=== PATIENT | female | born 1975 | race Caucasian/White ===

== ENCOUNTER 2024-01-24 13:59 | Inpatient (IN) ==
[2024-01-24 16:23] LABS: Basophils # (auto) 0.06 K/uL (0.00-0.20); Basophils % (auto) 0.6 %; Hematocrit (blood only) 40.9 % (37.0-47.0); Hemoglobin 13.6 g/dl (12.0-16.0); Immature Granulocytes # (auto) 0.04 K/uL (0.01-0.20); Immature Granulocytes % (auto) 0.4 %; Lymphocytes # (auto) 2.77 K/uL (1.20-3.40); Lymphocytes % (auto) 26.9 %; Mean Corpuscular Hemoglobin 29.7 pg (25.0-34.0); Mean Corpuscular Hgb Conc 33.3 g/dL (32.0-36.0); Mean Corpuscular Volume 89.3 fL (80.0-100.0); Mean Platelet Volume 10.3 fL (9.4-12.4); Monocytes # (auto) 0.71 K/uL (0.11-0.59); Monocytes % (auto) 6.9 %; Neutrophils # (auto) 6.62 K/uL (1.40-6.50); Neutrophils % (auto) 64.2 %; Platelet Count 328 K/uL (130-400); RDW Coefficient of Variation 12.9 % (11.5-14.5); RDW Standard Deviation 41.9 fL (36.4-46.3); Red Blood Count 4.58 M/uL (4.20-5.40)
[2024-01-24 16:39] LABS: Albumin Globulin Ratio 1.6 (0.9-2); Albumin Level 4.6 gm/dl (3.4-5.0); BUN Creatinine Ratio 16.9 (10-20); Bilirubin,Total 0.4 mg/dl (0.2-1.0); Calcium 9.4 mg/dl (8.6-10.3); Creatinine Clr Calc Pharmacy 58.9 ml/min; Est GFR (Non-African American) 82.8 ml/min; Globulin 2.9 gm/dl (2.5-4.0); Potassium 3.9 mmol/L (3.5-5.1); Total Protein 7.5 gm/dl (6.0-8.3)
[2024-01-24 16:44] LABS: Troponin I High Sensitivity 6.7 pg/ml (0-14)
[2024-01-24 16:53] LABS: INR 0.9 (0.9-1.1); Partial Thromboplastin Ratio 0.9; Partial Thromboplastin Time 24 Seconds (21-31); Prothrombin Time 10.1 Seconds (9.0-12.0)
--- NOTE | 2024-01-24 16:58 | Emergency Department Note ---
History of Present Illness General Chief complaint: Syncope Stated complaint: SYNCOPE Time Seen by Provider: 01/24/24 16:57 History of Present Illness NAME: TRENTON MEADE AGE: 48 SEX: F : 1975 ARRIVES VIA: Walk-In INFORMANT: Patient ED PROVIDER(S): FELICIANO Vital, Gabriel Quesada DO The patient is a pleasant 48-year-old female who arrives to the emergency department with her significant other for evaluation of multiple episodes of syncope. She reports since Sunday she has syncopized nearly 20 times. The event start with a central chest pain, and a sensation of hot and cold before she has loss of consciousness. The patient reports she is out for several moments until she comes to. She reports the chest pain is resolved upon awaking. She denies a history of previous episodes, cardiac history, or hypoglycemia. She does report a history of focal seizures, however her presentation of seizures does not resemble this. She denies current chest pain, abdominal pain, nausea, vomiting, head pain, neurological deficits, head strike, or falling. She reports the episodes have occurred while she has been lying down, standing, working, and driving. Home Medications Medication Instructions Recorded Confirmed Type aspirin 81 mg tablet,delayed 81 mg PO DAILY 01/24/24 01/24/24 History release duloxetine 20 mg capsule,delayed 20 mg PO DAILY 01/24/24 01/24/24 History release ergocalciferol (vitamin D2) 1,250 1,250 mcg PO WK 01/24/24 01/24/24 History mcg (50,000 unit) capsule (Vitamin D2) multivitamin with minerals-folic 1 tab PO DAILY 01/24/24 01/24/24 History acid 200 mcg chewable tablet (Multivitamin Gummies) primidone 50 mg tablet 25 mg PO DAILY 01/24/24 01/24/24 History Allergies Allergy/AdvReac Type Severity Reaction Status Date / Time mushroom Allergy Severe THROAT Verified 01/24/24 17:42 SWELLS/HIVES doxepin [From [place]] Allergy Intermediate Hives Verified 01/24/24 17:42 Past Med/Surg History Problem List (Updated 01/24/24 @ 21:33 by FELICIANO Nguyen) Syncope (Acute) Chest pain (Acute) Social History Smoking Status: Former smoker Feels Safe at Home: Yes Physical Exam Vital Signs Vital Signs - 24 hr 01/24/24 14:23 01/24/24 16:47 01/24/24 16:47 Temperature 36.3 C L 36.7 C Temperature Source Temporal Artery Scan Oral Pulse Rate - Lying Pulse Rate - Sitting Pulse Rate - Standing Pulse Rate 95 H Pulse Rate [Right Finger] 74 Pulse Rhythm Pulse Rhythm [Right Finger] Regular Pulse Strength [Right Finger] Normal Respiratory Rate 16 20 Respiratory Effort / Characteristics Non-Labored Non-Labored Spontaneous Respiratory Depth Normal Normal Respiratory Pattern Regular Blood Pressure - Lying Blood Pressure - Sitting Blood Pressure- Standing Blood Pressure 131/94 Blood Pressure [Left Arm] 155/88 H Blood Pressure Mean 106 Blood Pressure Mean [Left Arm] 110 Blood Pressure Position [Left Arm] Semi-fowlers Pulse Oximetry 100 96 98 Oxygen Delivery Method Room Air Room Air Room Air Sepsis Recent Fever Within 48 Hours No Sepsis New/Unexplained Change in Mental Status No Sepsis Action Taken by Nursing No Action Required 01/24/24 16:47 01/24/24 16:47 01/24/24 17:33 Temperature Temperature Source Pulse Rate - Lying 83 Pulse Rate - Sitting 88 Pulse Rate - Standing 95 H Pulse Rate 74 75 Pulse Rate [Right Finger] Pulse Rhythm Regular Pulse Rhythm [Right Finger] Pulse Strength [Right Finger] Respiratory Rate 20 Respiratory Effort / Characteristics Respiratory Depth Respiratory Pattern Blood Pressure - Lying 154/88 H Blood Pressure - Sitting 161/96 H Blood Pressure- Standing 174/108 H Blood Pressure Blood Pressure [Left Arm] Blood Pressure Mean Blood Pressure Mean [Left Arm] Blood Pressure Position [Left Arm] Pulse Oximetry 98 Oxygen Delivery Method Room Air Sepsis Recent Fever Within 48 Hours Sepsis New/Unexplained Change in Mental Status Sepsis Action Taken by Nursing 01/24/24 18:32 01/24/24 20:34 01/24/24 20:35 Temperature 36.7 C Temperature Source Oral Pulse Rate - Lying 88 Pulse Rate - Sitting 95 H Pulse Rate - Standing 91 H Pulse Rate Pulse Rate [Right Finger] 88 88 Pulse Rhythm Pulse Rhythm [Right Finger] Regular Regular Pulse Strength [Right Finger] Normal Normal Respiratory Rate 20 14 Respiratory Effort / Characteristics Non-Labored Spontaneous Non-Labored Respiratory Depth Normal Normal Respiratory Pattern Regular Regular Blood Pressure - Lying 160/92 H Blood Pressure - Sitting 160/93 H Blood Pressure- Standing 169/100 H Blood Pressure Blood Pressure [Left Arm] 153/92 H 160/92 H Blood Pressure Mean Blood Pressure Mean [Left Arm] 112 114 Blood Pressure Position [Left Arm] Semi-fowlers Lying Pulse Oximetry 98 100 Oxygen Delivery Method Room Air Room Air Sepsis Recent Fever Within 48 Hours Sepsis New/Unexplained Change in Mental Status Sepsis Action Taken by Nursing VITALS: Vitals are noted on the nurse's note and reviewed by myself. Vital signs stable. GENERAL: 48-year-old female, in no acute distress, nondiaphoretic, well- developed well-nourished. SKIN: The skin was without rashes, erythema, edema, or bruising. HEAD: Normocephalic atraumatic. NECK: Supple without nuchal rigidity. No lymphadenopathy. No thyromegaly. Cervical spine is nontender. No JVD. HEART: Regular rate and rhythm without murmurs gallops or rubs. LUNGS: Clear to auscultation bilaterally without wheezes, rales or rhonchi. No retractions or accessory muscle use. ABDOMEN: Positive bowel sounds x 4. Soft, nontender, without masses or organomegaly. Holder sign negative. No guarding or rebound tenderness. MUSCULOSKELETAL: No muscle atrophy, erythema, or edema noted. Full range of motion without joint tenderness in all extremities. No tenderness to palpation. Normal gait. Strength 5/5 throughout. NEURO: Patient was alert and oriented to person place and time. No focal neurological deficits. Course Administered Medications Discontinued Medications Sodium Chloride (Nss) 1,000 mls @ 999 mls/hr IV .Q1H1M [facility] Stop: 01/24/24 18:45 Last Infusion: 01/24/24 19:14 Dose: Infused Documented By: Admin: 01/24/24 17:33 Dose: 999 mls/hr Documented By: WOODY Ioversol (Optiray 320 125ml) 84 ml IV ONCE ONE Stop: 01/24/24 18:13 Last Admin: 01/24/24 18:12 Dose: 84 ml Documented By: DEN Ketorolac Tromethamine (Ketorolac Tromethamine 60 Mg/2 Ml Vial) 30 mg IM NOW STA Stop: 01/24/24 16:59 Last Admin: 01/24/24 17:14 Dose: 30 mg Documented By: CAW Medical Decision Making Differential Diagnosis Cardiac ischemia, aortic dissection, pulmonary embolism, pneumothorax, pneumonia, pericarditis, myocarditis, esophageal rupture, GERD, cholecystitis, pancreatitis, musculoskeletal, as well as other pathologies. Medical Records Attestation: I reviewed the patient's medical records. Home Medications Current Medication List: was personally reviewed by me Laboratory Data Attestation: I reviewed the patient's lab results. No leukocytosis, stable hemoglobin and hematocrit, no electrolyte abnormalities, urinalysis negative for infection, troponin 6.7. 01/24/24 15:54 01/24/24 15:54 Lab Results 01/24/24 01/24/24 01/24/24 Range/Units 15:54 18:45 19:43 WBC 10.30 (4.8-10.8) K/ul RBC 4.58 (4.20-5.40) M/uL Hgb 13.6 (12.0-16.0) g/dl Hct 40.9 (37.0-47.0) % MCV 89.3 (80.0-100.0) fL MCH 29.7 (25.0-34.0) pg MCHC 33.3 (32.0-36.0) g/dL RDW Std Deviation 41.9 (36.4-46.3) fL RDW Coeff of Deric 12.9 (11.5-14.5) % Plt Count 328 (130-400) K/uL MPV 10.3 (9.4-12.4) fL Immature Gran % (Auto) 0.4 % Neut % (Auto) 64.2 % Lymph % (Auto) 26.9 % [place] % (Auto) 6.9 % Eos % (Auto) 1.0 % Baso % (Auto) 0.6 % Neut # (Auto) 6.62 H (1.40-6.50) K/uL Lymph # (Auto) 2.77 (1.20-3.40) K/uL [place] # (Auto) 0.71 H (0.11-0.59) K/uL Eos # (Auto) 0.10 (0.00-0.50) K/uL Baso # (Auto) 0.06 (0.00-0.20) K/uL Immature Gran # (Auto) 0.04 (0.01-0.20) K/uL PT 10.1 (9.0-12.0) Seconds INR 0.9 (0.9-1.1) APTT 24 (21-31) Seconds PTT Ratio 0.9 D-Dimer 380 (0-500) ug/L FEU Sodium 139 (136-145) mmol/L Potassium 3.9 (3.5-5.1) mmol/L Chloride 106 (98-107) mmol/L Carbon Dioxide 29 (21-32) mmol/L Anion Gap 4 (3-11) BUN 14 (6-23) mg/dl Creatinine 0.83 (0.6-1.2) mg/dl Est Cr Clr Drug Dosing 58.9 ml/min Est GFR ( Amer) 96.0 ml/min Est GFR (Non-Af Amer) 82.8 ml/min BUN/Creatinine Ratio 16.9 (10-20) Glucose 68 L (70-99(Fasting)) mg/dl Calcium 9.4 (8.6-10.3) mg/dl Magnesium 1.8 (1.7-2.4) mg/dl Total Bilirubin 0.4 (0.2-1.0) mg/dl AST 21 (13-39) U/L ALT 41 (7-52) U/L Alkaline Phosphatase 65 (34-104) U/L Troponin I High Sens 6.7 5.4 (0-14) pg/ml Total Protein 7.5 (6.0-8.3) gm/dl Albumin 4.6 (3.4-5.0) gm/dl Globulin 2.9 (2.5-4.0) gm/dl Albumin/Globulin Ratio 1.6 (0.9-2) Urine Color Yellow Urine Appearance Clear (Clear) Urine pH 7.0 (4.5-7.5) Ur Specific [place] 1.012 (1.000-1.030) Urine Protein Negative (Negative) Urine Glucose (UA) Negative (Negative) Urine Ketones Negative (Negative) Urine Blood Negative (Negative) Urine Nitrite Negative (Negative) Urine Bilirubin Negative (Negative) Urine Urobilinogen Negative (Negative) Ur Leukocyte Esterase Negative (Negative) Imaging Data Attestation: I personally reviewed and interpreted this imaging study as follows: My Impression: Initial x-ray interpretation per myself shows no acute cardiopulmonary process. Will await formal radiology report. Radiologist's Impression: Chest X-Ray 01/24/24 14:26 XR chest 1V portable CLINICAL HISTORY: Chest pain, nonspecific TECHNIQUE: Single frontal radiograph of the chest was obtained. Comparison: None available at the time of this dictation. FINDINGS: No lines and tubes are seen. The cardiomediastinal silhouette is normal. The lungs are clear. No evidence of pleural effusion or pneumothorax. IMPRESSION: No acute chest disease. ACT 112: Negative or not required by law. Electronically signed by: Raghu Murray M.D. 01/24/2024 5:38 PM Chest CTA 01/24/24 17:24 CT angio chest PE protocol CLINICAL HISTORY: PE TECHNIQUE: Multidetector row helical CT of the chest was performed with angiographic protocol. Coronal and sagittal reformations were obtained. Coronal and sagittal MIPS were obtained from the axial data set and were submitted for review. Automated dose lowering techniques and/or adjustment according to patient size were utilized for this exam. CT DOSE: 327.6 mGy.cm Comparison: Comparison is made to chest radiograph 01/24/2024 FINDINGS: Lungs and pleura: Diffuse centrilobular emphysema is seen most prominent in the upper lobes. There is a 6 mm nodule in the right lower lobe (series 4 image 97) and a 3 mm nodule in the right middle lobe (image 64). Heart and pericardium: Heart size is normal. No pericardial effusion. Vessels: No evidence of pulmonary embolism. Mediastinum and janet: Unremarkable. Chest wall and lower neck: Unremarkable. Abdomen: Unremarkable. Bones: Unremarkable. IMPRESSION: 1. No acute abnormality and in particular no evidence of pulmonary embolus. 2. Emphysema is seen. 3. Pulmonary nodules as above. According to Fleischner criteria, CT chest should be performed at 6-12 months. In high-risk patients, a 18-24 month follow- up is recommended, in low-risk patients, this 18-24 month follow-up CT is optional. ACT 112: Negative or not required by law. Electronically signed by: Raghu Murray M.D. 01/24/2024 6:44 PM ECG Data Attestation: I personally reviewed and interpreted this ECG as follows: Indication: + chest pain and + syncope Rate (beats per minute): 78 Rhythm: + normal sinus ECG [place]: + Normal ECG ST segments: + Normal ST segments Comparison ECG Date: no prior available Blood Pressure Blood Pressure Findings: Normal blood pressure MDM Narrative The patient is a pleasant 48-year-old female who arrives to the emergency department for the above-stated complaint. Initial workup was performed in triage including a saline lock, CBC, CMP, troponin, EKG. CBC, CMP, troponin were reassuring. EKG was unremarkable. Upon initial assessment the patient describes multiple episodes of syncope which are very concerning. I do believe it is appropriate to rule out pulmonary embolus as the cause therefore CT imaging of the chest was indicated. CT imaging shows no pulmonary embolus, no acute findings, and 2 incidental pulmonary nodules. Due to the patient's safety risk, and need for formal cardiology workup, admission to the hospital is indicated. I spoke with case management regarding patient admission who facilitated contact with the [facility] hospitalist service. The patient was accepted by Dr. Strickland from the [facility] hospitalist group. He will assume care of the patient at this time. Please refer to Dr. Strickland's documentation for further patient care. Continuous home health care worker: Order was placed for continuous home health care worker. Patient was placed on the home health care worker. Patient was noted to be in normal sinus rhythm at an initial rate of 74 bpm. Impression & Plan Chest pain, Syncope Discharge Plan Visit Data Chief Complaint: Syncope Stated Complaint: SYNCOPE ED Provider: Gabriel Quesada ED Midlevel Provider: Vandana Sharp Discharge Problem: Chest pain, Syncope Forms Stand Alone Forms: My [facility] Prescriptions Prescriptions: No Action primidone 50 mg tablet 25 mg PO DAILY aspirin 81 mg Tablet,Delayed Release (Dr/Ec) 81 mg PO DAILY ergocalciferol (vitamin D2) [Vitamin D2] 1,250 mcg (50,000 unit) Capsule 1,250 mcg PO WK Rx Instructions: [facility] duloxetine 20 mg Capsule,Delayed Release(Dr/Ec) 20 mg PO DAILY multivit with min-folic acid [Multivitamin Gummies] 200 mcg Tablet,Chewable 1 tab PO DAILY Referrals Referrals: PCP,NO [Physician] - Discharge Problem: Chest pain Qualifiers: Chest pain type: unspecified Qualified Code(s): R07.9 - Chest pain, unspecified Syncope Qualifiers: Syncope type: unspecified Qualified Code(s): R55 - Syncope and collapse
[2024-01-24] MEDS: KETOROLAC TROMETHAMINE 60 MG/2 ML VIAL IM STA (17:14)
[2024-01-24] MEDS: SODIUM CHLORIDE 0.9% 1,000 ML IV SCH (17:33)
--- NOTE | 2024-01-24 17:39 | XRay Report ---
XR chest 1V portable CLINICAL HISTORY: Chest pain, nonspecific TECHNIQUE: Single frontal radiograph of the chest was obtained. Comparison: None available at the time of this dictation. FINDINGS: No lines and tubes are seen. The cardiomediastinal silhouette is normal. The lungs are clear. No evid ence of pleural effusion or pneumothorax. IMPRESSION: No acute chest disease. ACT 112: Negative or not required by law. Electronically signed by: Raghu Murray M.D. 01/24/2024 5:38 PM
[2024-01-24] MEDS: OPTIRAY 320 125ml IV ONE (18:12)
--- NOTE | 2024-01-24 18:46 | CT Scan Report ---
CT angio chest PE protocol CLINICAL HISTORY: PE TECHNIQUE: Multidetector row helical CT of the chest was performed with angiographic protocol. Snyder l and sagittal reformations were obtained. Coronal and sagittal MIPS were obtained from the axial maggie a set and were submitted for review. Automated dose lowering techniques and/or adjustment according to patient size were utilized for this exam. CT DOSE: 327.6 mGy.cm Comparison: Comparison is made to chest radiograph 01/24/2024 FINDINGS: Lungs and pleura: Diffuse centrilobular emphysema is seen most prominent in the upper lobes. There is a 6 mm nodule in the right lower lobe (series 4 image 97) and a 3 mm nodule in the right middle lobe (image 64). Heart and pericardium: Heart size is normal. No pericardial effusion. Vessels: No evidence of pulmonary embolism. Mediastinum and janet: Unremarkable. Chest wall and lower neck: Unremarkable. Abdomen: Unremarkable. Bones: Unremarkable. IMPRESSION: 1. No acute abnormality and in particular no evidence of pulmonary embolus. 2. Emphysema is seen. 3. Pulmonary nodules as above. According to Fleischner criteria, CT chest should be performed at 6-1 2 months. In high-risk patients, a 18-24 month follow-up is recommended, in low-risk patients, this 1 8-24 month follow-up CT is optional. ACT 112: Negative or not required by law. Electronically signed by: Raghu Murray M.D. 01/24/2024 6:44 PM
[2024-01-24 19:00] LABS: Appearance Urine Clear (Clear); Bilirubin Urine Negative (Negative); Blood Urine Negative (Negative); Color Urine Yellow; Glucose Urine UA Negative (Negative); Ketones Urine Negative (Negative); Leukocyte Esterase Urine Negative (Negative); Nitrite Urine Negative (Negative); Protein Urine Negative (Negative); Specific Gravity Urine 1.012 (1.000-1.030); Urobilinogen Urine Negative (Negative)
[2024-01-24 20:23] LABS: Magnesium 1.8 mg/dl (1.7-2.4)
[2024-01-24 20:30] LABS: Troponin I High Sensitivity 5.4 pg/ml (0-14)
[2024-01-24 20:32] LABS: D Dimer 380 ug/L FEU (0-500)
--- NOTE | 2024-01-24 21:37 | History & Physical Report ---
Date of Service January 24, 2024 Assessment & Plan (1) Chest pain: Plan: Associated with syncopal event Rule out ACS given patient risk factors Uncontrolled hypertension and anxiety possibly contributory History hypertension of BP medications for about 10 years due to low BP in the past as per patient account hx CVA migraine, current frontal headache symptoms different from usual migraine attack essential tremors stable on primidone pulmonary nodules, not new finding as per patient. past tobacco abuse OBS PCU Continue aspirin for CAD/stroke prevention Initiate lisinopril for BP control Anxiolytic as needed Follow troponin TTE, Cardiology consult RE chest pain with syncope N.p.o. after midnight in anticipation of workup DVT prophylaxis. Lovenox subcu Full code Text document was generated using [employer] voice recognition software. It may contain grammatical or spelling errors. Kindly contact undersigned for clarification of any documentation item in question. History of Present Illness Chief Complaint: Chest pain Primary Care Provider: Wilfred Shipman MD History obtained from patient, family, and records. Medical history significant for CVA, hypertension, migraine, essential tremors, pulmonary nodules, past tobacco abuse. Few days history of intermittent achy chest tightness without radiation, no shortness of breath, no diaphoresis. Not related to exertion. Discomfort will lead to passing out. Admits to some family stressors. No witnessed seizures at home. Patient brought to ER by partner. Highest SBP 160s documented at the ER. Patient complaining of frontal headache symptoms. 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 Allergies Allergy/AdvReac Type Severity Reaction Status Date / Time mushroom Allergy Severe THROAT Verified 01/24/24 17:42 SWELLS/HIVES doxepin [From [place]] Allergy Intermediate Hives Verified 01/24/24 17:42 Home Medications Medication Instructions Recorded Confirmed Type aspirin 81 mg tablet,delayed 81 mg PO DAILY 01/24/24 01/24/24 History release duloxetine 20 mg capsule,delayed 20 mg PO DAILY 01/24/24 01/24/24 History release ergocalciferol (vitamin D2) 1,250 1,250 mcg PO WK 01/24/24 01/24/24 History mcg (50,000 unit) capsule (Vitamin D2) multivitamin with minerals-folic 1 tab PO DAILY 01/24/24 01/24/24 History acid 200 mcg chewable tablet (Multivitamin Gummies) primidone 50 mg tablet 25 mg PO DAILY 01/24/24 01/24/24 History Past Med/Surg History Problem List ST elevation Second degree AV block, Mobitz type II Syncope (Acute) Chest pain (Acute) Social History Smoking Status: Former smoker Tobacco Type: Cigarettes Smoking End Date: December 2022; Do You Dip or Chew Tobacco: No; Hx Alcohol Use: No Hx Substance Use: No Preferred Language: Filipino Communication Ability: Effective Crushing Foreman Required: No Beliefs That Will Affect Care: None Current Living Situation: Family Current Living Situation Comment: with son Feels Safe at Home: Yes Safety Concerns: Feels Safe At This Time Review of Systems Review of Systems: As per HPI, all other systems reviewed and negative Physical Exam Physical Exam: GENERAL: Comfortable, slightly anxious, no respiratory distress SKIN: Normal color, warm HEENT: [place] palpebral conjunctivae, no ptosis, dry buccal mucosa NECK : Supple, no tenderness CHEST : CTA, no tenderness HEART : RRR, no obvious murmurs ABDOMEN: Some distention, nontender EXTREMITIES : No LE swelling/tenderness, no other conspicuous deformities noted NEUROLOGIC : Coherent, no facial asymmetry, no other gross focality Results & Data Results & Data Vital Signs (Past 12 Hours) Vital Signs Temp Pulse Pulse Resp BP BP Pulse Ox 01/24/24 20:35 88 14 160/92 H 100 01/24/24 18:32 36.7 C 88 20 153/92 H 98 01/24/24 16:47 75 01/24/24 16:47 74 20 98 01/24/24 16:47 36.7 C 74 20 155/88 H 98 01/24/24 16:47 96 01/24/24 14:23 36.3 C L 95 H 16 131/94 100 O2 Del Method 01/24/24 20:35 Room Air 01/24/24 18:32 Room Air 01/24/24 16:47 01/24/24 16:47 Room Air 01/24/24 16:47 Room Air 01/24/24 16:47 Room Air 01/24/24 14:23 Room Air Laboratory Results Laboratory Results WBC 10.30 K/ul (4.8-10.8) 01/24/24 15:54 RBC 4.58 M/uL (4.20-5.40) 01/24/24 15:54 Hgb 13.6 g/dl (12.0-16.0) 01/24/24 15:54 Hct 40.9 % (37.0-47.0) 01/24/24 15:54 MCV 89.3 fL (80.0-100.0) 01/24/24 15:54 MCH 29.7 pg (25.0-34.0) 01/24/24 15:54 MCHC 33.3 g/dL (32.0-36.0) 01/24/24 15:54 RDW Std Deviation 41.9 fL (36.4-46.3) 01/24/24 15:54 RDW Coeff of Deric 12.9 % (11.5-14.5) 01/24/24 15:54 Plt Count 328 K/uL (130-400) 01/24/24 15:54 MPV 10.3 fL (9.4-12.4) 01/24/24 15:54 Immature Gran % (Auto) 0.4 % 01/24/24 15:54 Neut % (Auto) 64.2 % 01/24/24 15:54 Lymph % (Auto) 26.9 % 01/24/24 15:54 [place] % (Auto) 6.9 % 01/24/24 15:54 Eos % (Auto) 1.0 % 01/24/24 15:54 Baso % (Auto) 0.6 % 01/24/24 15:54 Neut # (Auto) 6.62 K/uL (1.40-6.50) H 01/24/24 15:54 Lymph # (Auto) 2.77 K/uL (1.20-3.40) 01/24/24 15:54 [place]ila # (Auto) 0.71 K/uL (0.11-0.59) H 01/24/24 15:54 Eos # (Auto) 0.10 K/uL (0.00-0.50) 01/24/24 15:54 Baso # (Auto) 0.06 K/uL (0.00-0.20) 01/24/24 15:54 Immature Gran # (Auto) 0.04 K/uL (0.01-0.20) 01/24/24 15:54 PT 10.1 Seconds (9.0-12.0) 01/24/24 15:54 INR 0.9 (0.9-1.1) 01/24/24 15:54 APTT 24 Seconds (21-31) 01/24/24 15:54 PTT Ratio 0.9 01/24/24 15:54 D-Dimer 380 ug/L FEU (0-500) 01/24/24 19:43 Sodium 139 mmol/L (136-145) 01/24/24 15:54 Potassium 3.9 mmol/L (3.5-5.1) 01/24/24 15:54 Chloride 106 mmol/L (98-107) 01/24/24 15:54 Carbon Dioxide 29 mmol/L (21-32) 01/24/24 15:54 Anion Gap 4 (3-11) 01/24/24 15:54 BUN 14 mg/dl (6-23) 01/24/24 15:54 Creatinine 0.83 mg/dl (0.6-1.2) 01/24/24 15:54 Est Cr Clr Drug Dosing 58.9 ml/min 01/24/24 15:54 Est GFR ( Amer) 96.0 ml/min 01/24/24 15:54 Est GFR (Non-Af Amer) 82.8 ml/min 01/24/24 15:54 BUN/Creatinine Ratio 16.9 (10-20) 01/24/24 15:54 Glucose 68 mg/dl (70-99(Fasting)) L 01/24/24 15:54 Calcium 9.4 mg/dl (8.6-10.3) 01/24/24 15:54 Magnesium 1.8 mg/dl (1.7-2.4) 01/24/24 19:43 Total Bilirubin 0.4 mg/dl (0.2-1.0) 01/24/24 15:54 AST 21 U/L (13-39) 01/24/24 15:54 ALT 41 U/L (7-52) 01/24/24 15:54 Alkaline Phosphatase 65 U/L (34-104) 01/24/24 15:54 Troponin I High Sens 5.4 pg/ml (0-14) 01/24/24 19:43 Total Protein 7.5 gm/dl (6.0-8.3) 01/24/24 15:54 Albumin 4.6 gm/dl (3.4-5.0) 01/24/24 15:54 Globulin 2.9 gm/dl (2.5-4.0) 01/24/24 15:54 Albumin/Globulin Ratio 1.6 (0.9-2) 01/24/24 15:54 Urine Color Yellow 01/24/24 18:45 Urine Appearance Clear (Clear) 01/24/24 18:45 Urine pH 7.0 (4.5-7.5) 01/24/24 18:45 Ur Specific [place] 1.012 (1.000-1.030) 01/24/24 18:45 Urine Protein Negative (Negative) 01/24/24 18:45 Urine Glucose (UA) Negative (Negative) 01/24/24 18:45 Urine Ketones Negative (Negative) 01/24/24 18:45 Urine Blood Negative (Negative) 01/24/24 18:45 Urine Nitrite Negative (Negative) 01/24/24 18:45 Urine Bilirubin Negative (Negative) 01/24/24 18:45 Urine Urobilinogen Negative (Negative) 01/24/24 18:45 Ur Leukocyte Esterase Negative (Negative) 01/24/24 18:45 Impressions Chest X-Ray 01/24/24 14:26 XR chest 1V portable CLINICAL HISTORY: Chest pain, nonspecific TECHNIQUE: Single frontal radiograph of the chest was obtained. Comparison: None available at the time of this dictation. FINDINGS: No lines and tubes are seen. The cardiomediastinal silhouette is normal. The lungs are clear. No evidence of pleural effusion or pneumothorax. IMPRESSION: No acute chest disease. ACT 112: Negative or not required by law. Electronically signed by: Raghu Murray M.D. 01/24/2024 5:38 PM Chest CTA 01/24/24 17:24 CT angio chest PE protocol CLINICAL HISTORY: PE TECHNIQUE: Multidetector row helical CT of the chest was performed with angiographic protocol. Coronal and sagittal reformations were obtained. Coronal and sagittal MIPS were obtained from the axial data set and were submitted for review. Automated dose lowering techniques and/or adjustment according to patient size were utilized for this exam. CT DOSE: 327.6 mGy.cm Comparison: Comparison is made to chest radiograph 01/24/2024 FINDINGS: Lungs and pleura: Diffuse centrilobular emphysema is seen most prominent in the upper lobes. There is a 6 mm nodule in the right lower lobe (series 4 image 97) and a 3 mm nodule in the right middle lobe (image 64). Heart and pericardium: Heart size is normal. No pericardial effusion. Vessels: No evidence of pulmonary embolism. Mediastinum and janet: Unremarkable. Chest wall and lower neck: Unremarkable. Abdomen: Unremarkable. Bones: Unremarkable. IMPRESSION: 1. No acute abnormality and in particular no evidence of pulmonary embolus. 2. Emphysema is seen. 3. Pulmonary nodules as above. According to Fleischner criteria, CT chest should be performed at 6-12 months. In high-risk patients, a 18-24 month follow- up is recommended, in low-risk patients, this 18-24 month follow-up CT is optional. ACT 112: Negative or not required by law. Electronically signed by: Raghu Murray M.D. 01/24/2024 6:44 PM Diagnostic Findings EKG as per my interpretation :Rate 85, NSR, normal axis, T wave abnormalities inferior leads (1) Chest pain Chest pain type: unspecified Qualified Code(s): R07.9 - Chest pain, unspecified
[2024-01-24] MEDS ORDERED: PROMETHAZINE HCL 6.25 MG in SODIUM CHLORIDE 0.9% 50 ML IV PRN (21:39)
[2024-01-24] MEDS ORDERED: LORazepam 0.5 MG TAB PO PRN (21:39)
--- NOTE | 2024-01-24 22:08 | CT Scan Report ---
Exam(s): CT HEAD Without Contrast EXAM: CT Head Without Intravenous Contrast CLINICAL HISTORY: Reason for exam: berrios, syncope. TECHNIQUE: Axial computed tomography images of the head/brain without intravenous contrast. CTDI is 37.22 mGy and DLP is 547.75 mGy-cm. Automated exposure control was utilized for the study. A dose lowering technique was utilized adhering to the principles of ALARA. COMPARISON: No relevant prior studies available. FINDINGS: No acute intracranial hemorrhage. No midline shift or mass effect. The territorial cole-white matter differentiation is maintained throughout. The ventricles and sulci are commensurate with age. The visualized orbits appear grossly unremarkable. The calvarium is intact. The visualized paranasal sinuses and mastoid air cells are grossly clear. IMPRESSION: No acute intracranial hemorrhage, midline shift, or mass effect. Electronically signed by: Cholo Nieto MD 01/24/24 22:07 PM
[2024-01-24] MEDS: oxyCODONE HCL IR 5 MG TAB (IMMEDIATE RELEASE) PO STA (22:46)
[2024-01-24] MEDS: lisinopril 2.5 MG TAB PO STA (22:46)
[2024-01-25] MEDS: D5W AND LACTATED RINGERS 1,000 ML IV SCH (00:09)
[2024-01-25] MEDS: NITROGLYCERIN SL 0.4 MG/TAB TAB SL STA (03:26)
[2024-01-25] MEDS: oxyCODONE HCL IR 5 MG TAB (IMMEDIATE RELEASE) PO PRN (03:49)
[2024-01-25 04:02] LABS: Basophils # (auto) 0.05 K/uL (0.00-0.20); Basophils % (auto) 0.6 %; Eosinophils # (auto) 0.16 K/uL (0.00-0.50); Hematocrit (blood only) 34.7 % (37.0-47.0); Hemoglobin 11.5 g/dl (12.0-16.0); Immature Granulocytes # (auto) 0.02 K/uL (0.01-0.20); Immature Granulocytes % (auto) 0.2 %; Lymphocytes # (auto) 3.11 K/uL (1.20-3.40); Lymphocytes % (auto) 37.9 %; Mean Corpuscular Hemoglobin 29.6 pg (25.0-34.0); Mean Corpuscular Hgb Conc 33.1 g/dL (32.0-36.0); Mean Corpuscular Volume 89.4 fL (80.0-100.0); Mean Platelet Volume 10.1 fL (9.4-12.4); Monocytes # (auto) 0.75 K/uL (0.11-0.59); Monocytes % (auto) 9.1 %; Neutrophils # (auto) 4.11 K/uL (1.40-6.50); Neutrophils % (auto) 50.2 %; Platelet Count 277 K/uL (130-400); RDW Coefficient of Variation 12.9 % (11.5-14.5); RDW Standard Deviation 42.5 fL (36.4-46.3); Red Blood Count 3.88 M/uL (4.20-5.40)
[2024-01-25 04:24] LABS: Albumin Globulin Ratio 1.6 (0.9-2); Albumin Level 3.4 gm/dl (3.4-5.0); BUN Creatinine Ratio 17.6 (10-20); Bilirubin,Total 0.6 mg/dl (0.2-1.0); Chol HDL Ratio 2.7 (0-5); Creatinine Clr Calc Pharmacy 66.1 ml/min; Est GFR (African American) 110.3 ml/min; Est GFR (Non-African American) 95.1 ml/min; Globulin 2.1 gm/dl (2.5-4.0); Potassium 3.3 mmol/L (3.5-5.1); Total Protein 5.5 gm/dl (6.0-8.3)
[2024-01-25 04:33] LABS: Partial Thromboplastin Ratio 0.9; Partial Thromboplastin Time 25 Seconds (21-31)
[2024-01-25 04:43] LABS: Troponin I High Sensitivity 4.9 pg/ml (0-14)
[2024-01-25] MEDS: MAGNESIUM SULFATE / D5W 1 GM/100 ML BAG IV ONE (06:20)
[2024-01-25] MEDS: POTASSIUM CHLORIDE CRTAB 20 MEQ TABCR PO STA (06:20)
--- NOTE | 2024-01-25 08:39 | Electrocardiogram Report ---
Test Reason : Blood Pressure : / mmHG Vent. Rate : 086 BPM Atrial Rate : 086 BPM P-R Int : 130 ms QRS Dur : 084 ms QT Int : 386 ms P-R-T Axes : 045 047 009 degrees QTc Int : 461 ms Normal sinus rhythm Normal ECG No previous ECGs available Confirmed by Destin Louise ([id number]) on 01/25/2024 8:39:02 AM Referred By: REFERRED SELF Confirmed By:Destin Louise
[2024-01-25] MEDS: PRIMIDONE 50 MG TAB PO SCH (08:47)
[2024-01-25] MEDS: ACETAMINOPHEN 325 MG TAB PO PRN (08:47)
[2024-01-25] MEDS: ASPIRIN 81 MG ECTAB PO SCH (08:48)
[2024-01-25] MEDS: DULoxetine HCL 20 MG CAP PO SCH (08:48)
[2024-01-25] MEDS ORDERED: NON-FORMULARY MEDICATION (Multivit With Min-Folic Acid [Multivitamin Gummies] 200 mcg Tabl PO SCH (09:00)
--- NOTE | 2024-01-25 10:23 | Cardiology Consultation ---
Date of Consultation January 25, 2024 Assessment & Plan (1) Chest pain: (2) Syncope: (3) Second degree AV block, Mobitz type II: (4) ST elevation: Plan Patient admitted after multiple episodes of syncope associated with chest pain over the last few days. Symptoms would begin as substernal sharp chest pain. She would have diaphoresis and then briefly lose consciousness. She had 2 symptomatic events during admission thus far. First episode occurred in the middle of the night, awakening her from sleep. Treated with SL nitro. Transient ST changes noted on telemetry with episode of atrial tach. 2nd episode occurred this morning with substernal chest pain, development of di ffuse ST elevation on telemetry leads with 2:1 AV block. By the time EKG could be obtained, ST elevation resolved along with 2:1 AV block. HS troponin negative x4 since admission. Echo with preserved LVEF, moderate to severe MR. Given recent events this morning with chest pain, syncope, heart block and transient ST elevation, recommend proceeding with diagnostic cardiac cath. Continue ASA. Patient agreeable to proceeding. Further recommendations pending results of cardiac cath Case discussed with Dr. Marroquin I spent a total of 60 minutes on the date of service in preparation, delivery, and documentation of the care provided to this patient, excluding any time spent in the performance of separately billed services. Jeanie Chowdhury PA-C Department of Cardiology, [facility] This chart was completed in part utilizing Speech Voice Recognition Software. Grammatical errors, random word insertions, pronoun errors, and incomplete sentences are an occasional consequence of this system due to software limitations, ambient noise, and hardware issues. Any formal questions or concerns about the content, text, or information contained within the body of this dictation should be directly addressed to the provider for clarification. Supervising Physician Co-Signing Physician Notes Patient was seen and personally examined. Assessment and plan as well outlined by advanced provider as above. Care and management discussed and personally endorsed Patient is a 48-year-old female presented after multiple syncopal events who demonstrated event in hospital with witnessed ST elevation and transient 2-1 AV block. Patient had associated transient loss of consciousness. EKG post event demonstrated T wave inversion in inferior leads. Given symptomatic event with associated ST segment abnormalities and transient conduction abnormalities patient will be referred for urgent diagnostic coronary angiography, exclude obstructive coronary disease, coronary spasm I spent a total of 20 minutes on the date of service in preparation, delivery, and documentation of the care provided to this patient, excluding any time spent in the performance of separately billed services. This chart was completed in part utilizing Speech Voice Recognition Software. Grammatical errors, random word insertions, pronoun errors, and incomplete sentences are an occasional consequence of this system due to software limitations, ambient noise, and hardware issues. Any formal questions or concerns about the content, text, or information contained within the body of this dictation should be directly addressed to the provider for clarification. History of Present Illness Reason for Consultation: Chest pain Requesting Physician: Dr. Issa Attending Physician: Dr. Marroquin History of Present Illness Patient is a48 year old female admitted to [facility] for syncope and chest pain. Multiple episodes since Sunday. She develops sudden onset substernal chest pain, described as a sharp/pressure sensation then develops hot/flushing sensation and loses consciousness for 1-2 minutes. She reports following with Cardiology in [place] approx 10-15 years ago and was told she had a "leaky valve" that may need replaced in the future. Patient has not followed up since that time. She denies history of cardiovascular problems/issues. No history of SD, CHF, arrhythmias She has a history of possible seizures and migraines for which she follows with neurology. On primidone and duloxetine. She was told she may have had "mini" strokes 20 years ago during time of migraine, but details are uncertain. Prior history of tobacco abuse, quitting 1 year ago. Upon admission, EKG demonstrated NSR with T wave inversion in inferior leads. Negative HS troponin x4. Patient awakened from sleep in the middle of the night with substernal chest pain, she was treated with 1 SL nitro and symptoms impro ce. She believes she had a repeat syncopal spell during that time. Upon review of telemetry, patient had transient ST elevation with possible atrial tach during this time. Resolving spontaneously. At time of consult, patient was feeling well. She noted mild sharp stabbing pain this morning but was sporadic. Upon leaving the room to review telemetry overnight, patient developed substernal chest pressure and called for nursing. She then developed transient ST elevation on telemetry with 2:1 AV block. By the time EKG was obtained, ST changes returned to normal, and she returned to NSR. She had recurrent syncopal spell during that time. Symptoms then resolved. Allergies Allergy/AdvReac Type Severity Reaction Status Date / Time mushroom Allergy Severe THROAT Verified 01/24/24 17:42 SWELLS/HIVES doxepin [From [place]] Allergy Intermediate Hives Verified 01/24/24 17:42 Home Medications Medication Instructions Recorded Confirmed Type aspirin 81 mg tablet,delayed 81 mg PO DAILY 01/24/24 01/24/24 History release duloxetine 20 mg capsule,delayed 20 mg PO DAILY 01/24/24 01/24/24 History release ergocalciferol (vitamin D2) 1,250 1,250 mcg PO WK 01/24/24 01/24/24 History mcg (50,000 unit) capsule (Vitamin D2) multivitamin with minerals-folic 1 tab PO DAILY 01/24/24 01/24/24 History acid 200 mcg chewable tablet (Multivitamin Gummies) primidone 50 mg tablet 25 mg PO DAILY 01/24/24 01/24/24 History Patient History Social History Smoking Status: Former smoker Tobacco Type: Cigarettes Smoking End Date: December 2022; Do You Dip or Chew Tobacco: No; Hx Alcohol Use: No Hx Substance Use: No Preferred Language: Cameroonian Communication Ability: Effective Basketball Referee Required: No Beliefs That Will Affect Care: None Current Living Situation: Family Current Living Situation Comment: with son Feels Safe at Home: Yes Safety Concerns: Feels Safe At This Time Review of Systems Review of Systems: All systems reviewed & are unremarkable except as noted in HPI & below Physical Exam Constitutional: WD/WN, vitals as above + thin; no acute distress Neck: normal visual inspection Respiratory: normal respiratory effort, lungs clear to auscultation Cardiovascular: Rate/Rhythm: regular rate and regular rhythm Heart Sounds: + murmur (II/ systolic murmur at apex) Vessels: no JVD Extremities: no edema Gastrointestinal (Abdomen): normal bowel sounds, soft, nontender, no hepatosplenomegaly Neurologic: PERRL, EOMI, accommodation nl, no face palsy, no dysarthria Results & Data Vital Signs (Past 12 Hours) Vital Signs Temp Pulse Pulse Resp BP Pulse Ox O2 Del Method 01/25/24 08:00 36.5 C 73 16 111/76 100 Room Air 01/25/24 03:45 61 123/76 01/25/24 02:45 36.5 C 61 18 137/90 100 Room Air 01/24/24 22:40 36.5 C 88 16 139/85 100 Room Air 01/24/24 22:35 85 Laboratory Results Cardiac Enzymes 01/24/24 01/24/24 01/25/24 Range/Units 15:54 19:43 03:20 AST 21 42 H (13-39) U/L Troponin I High Sens 6.7 5.4 4.9 (0-14) pg/ml 01/25/24 Range/Units 06:48 AST (13-39) U/L Troponin I High Sens 8.9 D (0-14) pg/ml Coagulation 01/24/24 01/25/24 Range/Units 15:54 03:20 PT 10.1 (9.0-12.0) Seconds APTT 24 25 (21-31) Seconds Lipids 01/25/24 Range/Units 03:20 Triglycerides 92 (0-150) mg/dl Cholesterol 158 (0-200) mg/dl HDL Cholesterol 59 mg/dl Cholesterol/HDL Ratio 2.7 (0-5) CBC 01/24/24 01/25/24 Range/Units 15:54 03:20 WBC 10.30 8.20 (4.8-10.8) K/ul RBC 4.58 3.88 L (4.20-5.40) M/uL Hgb 13.6 11.5 L (12.0-16.0) g/dl Hct 40.9 34.7 L (37.0-47.0) % Plt Count 328 277 (130-400) K/uL Neut # (Auto) 6.62 H 4.11 (1.40-6.50) K/uL Lymph # (Auto) 2.77 3.11 (1.20-3.40) K/uL Patrick # (Auto) 0.71 H 0.75 H (0.11-0.59) K/uL Eos # (Auto) 0.10 0.16 (0.00-0.50) K/uL Baso # (Auto) 0.06 0.05 (0.00-0.20) K/uL Comprehensive Metabolic Panel 01/24/24 01/25/24 Range/Units 15:54 03:20 Sodium 139 140 (136-145) mmol/L Potassium 3.9 3.3 L (3.5-5.1) mmol/L Chloride 106 110 H (98-107) mmol/L Carbon Dioxide 29 26 (21-32) mmol/L BUN 14 13 (6-23) mg/dl Creatinine 0.83 0.74 (0.6-1.2) mg/dl Glucose 68 L 96 (70-99(Fasting)) mg/dl Calcium 9.4 8.0 L (8.6-10.3) mg/dl AST 21 42 H (13-39) U/L ALT 41 52 (7-52) U/L Alkaline Phosphatase 65 50 (34-104) U/L Total Protein 7.5 5.5 L D (6.0-8.3) gm/dl Albumin 4.6 3.4 (3.4-5.0) gm/dl Intake and Output 01/24/24 01/25/24 01/25/24 22:59 06:59 14:59 Intake Total 1000 / 1000 100 / 100 Balance 1000 / 1000 100 / 100 Intake: IV 1000 / 1000 100 / 100 Magnesium Sulfate / D5w 1 gm In 100 / 100 100 ml @ 50 mls/hr IV ONE ONE Rx#:[id number] Sodium Chloride 0.9% 1,000 ml @ 1000 / 1000 999 mls/hr IV .Q1H1M [facility] Rx#: [id number] Other: # Unmeasured Voids 2 Weight 46.1 kg Weight Measurement Method Built in [facility] Diagnostic Findings Telemetry reviewed: NSR with transient ST elevation and 2:1 AV block during times of chest pain and syncope EKG on admission: NSR with T wave inversion in III, AVF Repeat EKG this morning: NSR with T wave inversion in inferior leads Echo report reviewed: LV is normal in size LV wall motion is normal EF 55-60% Grade I diastolic dysfunction Moderately thickened mitral valve leaflets with mild prolapse of the posterior leaflet. Moderate to severe Mitral regurgitation in an eccentric posterior directed jet Trace TR No pulm hypertension Laboratory Results WBC 8.20 K/ul (4.8-10.8) 01/25/24 03:20 RBC 3.88 M/uL (4.20-5.40) L 01/25/24 03:20 Hgb 11.5 g/dl (12.0-16.0) L 01/25/24 03:20 Hct 34.7 % (37.0-47.0) L 01/25/24 03:20 MCV 89.4 fL (80.0-100.0) 01/25/24 03:20 MCH 29.6 pg (25.0-34.0) 01/25/24 03:20 MCHC 33.1 g/dL (32.0-36.0) 01/25/24 03:20 RDW Std Deviation 42.5 fL (36.4-46.3) 01/25/24 03:20 RDW Coeff of Deric 12.9 % (11.5-14.5) 01/25/24 03:20 Plt Count 277 K/uL (130-400) 01/25/24 03:20 MPV 10.1 fL (9.4-12.4) 01/25/24 03:20 Immature Gran % (Auto) 0.2 % 01/25/24 03:20 Neut % (Auto) 50.2 % 01/25/24 03:20 Lymph % (Auto) 37.9 % 01/25/24 03:20 Patrick % (Auto) 9.1 % 01/25/24 03:20 Eos % (Auto) 2.0 % 01/25/24 03:20 Baso % (Auto) 0.6 % 01/25/24 03:20 Neut # (Auto) 4.11 K/uL (1.40-6.50) 01/25/24 03:20 Lymph # (Auto) 3.11 K/uL (1.20-3.40) 01/25/24 03:20 Patrick # (Auto) 0.75 K/uL (0.11-0.59) H 01/25/24 03:20 Eos # (Auto) 0.16 K/uL (0.00-0.50) 01/25/24 03:20 Baso # (Auto) 0.05 K/uL (0.00-0.20) 01/25/24 03:20 Immature Gran # (Auto) 0.02 K/uL (0.01-0.20) 01/25/24 03:20 PT 10.1 Seconds (9.0-12.0) 01/24/24 15:54 INR 0.9 (0.9-1.1) 01/24/24 15:54 APTT 25 Seconds (21-31) 01/25/24 03:20 PTT Ratio 0.9 01/25/24 03:20 D-Dimer 380 ug/L FEU (0-500) 01/24/24 19:43 Sodium 140 mmol/L (136-145) 01/25/24 03:20 Potassium 3.3 mmol/L (3.5-5.1) L 01/25/24 03:20 Chloride 110 mmol/L (98-107) H 01/25/24 03:20 Carbon Dioxide 26 mmol/L (21-32) 01/25/24 03:20 Anion Gap 4 (3-11) 01/25/24 03:20 BUN 13 mg/dl (6-23) 01/25/24 03:20 Creatinine 0.74 mg/dl (0.6-1.2) 01/25/24 03:20 Est Cr Clr Drug Dosing 66.1 ml/min 01/25/24 03:20 Est GFR ( Amer) 110.3 ml/min 01/25/24 03:20 Est GFR (Non-Af Amer) 95.1 ml/min 01/25/24 03:20 BUN/Creatinine Ratio 17.6 (10-20) 01/25/24 03:20 Glucose 96 mg/dl (70-99(Fasting)) 01/25/24 03:20 POC Glucose 85 mg/dl (70-99) 01/24/24 22:41 Calcium 8.0 mg/dl (8.6-10.3) L 01/25/24 03:20 Magnesium 1.8 mg/dl (1.7-2.4) 01/24/24 19:43 Total Bilirubin 0.6 mg/dl (0.2-1.0) 01/25/24 03:20 AST 42 U/L (13-39) H 01/25/24 03:20 ALT 52 U/L (7-52) 01/25/24 03:20 Alkaline Phosphatase 50 U/L (34-104) 01/25/24 03:20 Troponin I High Sens 8.9 pg/ml (0-14) D 01/25/24 06:48 Total Protein 5.5 gm/dl (6.0-8.3) L D 01/25/24 03:20 Albumin 3.4 gm/dl (3.4-5.0) 01/25/24 03:20 Globulin 2.1 gm/dl (2.5-4.0) L 01/25/24 03:20 Albumin/Globulin Ratio 1.6 (0.9-2) 01/25/24 03:20 Triglycerides 92 mg/dl (0-150) 01/25/24 03:20 Cholesterol 158 mg/dl (0-200) 01/25/24 03:20 LDL Cholesterol, Calc 81 mg/dl 01/25/24 03:20 VLDL Cholesterol, Calc 18 mg/dl (0-30) 01/25/24 03:20 HDL Cholesterol 59 mg/dl 01/25/24 03:20 Cholesterol/HDL Ratio 2.7 (0-5) 01/25/24 03:20 Urine Color Yellow 01/24/24 18:45 Urine Appearance Clear (Clear) 01/24/24 18:45 Urine pH 7.0 (4.5-7.5) 01/24/24 18:45 Ur Specific [place] 1.012 (1.000-1.030) 01/24/24 18:45 Urine Protein Negative (Negative) 01/24/24 18:45 Urine Glucose (UA) Negative (Negative) 01/24/24 18:45 Urine Ketones Negative (Negative) 01/24/24 18:45 Urine Blood Negative (Negative) 01/24/24 18:45 Urine Nitrite Negative (Negative) 01/24/24 18:45 Urine Bilirubin Negative (Negative) 01/24/24 18:45 Urine Urobilinogen Negative (Negative) 01/24/24 18:45 Ur Leukocyte Esterase Negative (Negative) 01/24/24 18:45 Impressions Chest X-Ray 01/24/24 14:26 IMPRESSION: No acute chest disease. Chest CTA 01/24/24 17:24 IMPRESSION: 1. No acute abnormality and in particular no evidence of pulmonary embolus. 2. Emphysema is seen. 3. Pulmonary nodules as above. According to Fleischner criteria, CT chest should be performed at 6-12 months. In high-risk patients, a 18-24 month follow-up is recommended, in low-risk patients, this 18-24 month follow-up CT is optional. Head CT 05/30/24 21:36 IMPRESSION: No acute intracranial hemorrhage, midline shift, or mass effect. Medications Administered Current Inpatient Medications Acetaminophen (Acetaminophen 325 Mg Tab) 650 mg PO Q4H PRN PRN Reason: Pain or Fever Stop: 02/23/24 22:36 Last Admin: 01/25/24 08:47 Dose: 650 mg Aspirin (Aspirin 81 Mg Ectab) 81 mg PO DAILY TRINITY Stop: 02/24/24 08:59 Last Admin: 01/25/24 08:48 Dose: 81 mg Duloxetine HCl (Duloxetine Hcl 20 Mg Cap) 20 mg PO DAILY TRINITY Stop: 02/24/24 08:59 Last Admin: 01/25/24 08:48 Dose: 20 mg Promethazine HCl 6.25 mg/ (Sodium Chloride) 50.25 mls @ 201 mls/hr IV Q6H PRN PRN Reason: Nausea And Vomiting Stop: 02/23/24 21:38 Dextrose/Lactated Ringer's (D5w And Lactated Ringers) 1,000 mls @ 50 mls/hr IV .Q20H TRINITY Stop: 02/24/24 00:00 Last Admin: 01/25/24 00:09 Dose: 50 mls/hr Lisinopril (Lisinopril 2.5 Mg Tab) 2.5 mg PO HS TRINITY Stop: 02/24/24 20:59 Lorazepam (Lorazepam 0.5 Mg Tab) 0.5 mg PO TID PRN PRN Reason: Anxiety Stop: 02/23/24 21:38 Morphine Sulfate (Morphine Sulfate 2 Mg/Ml Carp) 2 mg IV Q3H PRN PRN Reason: Pain Stop: 02/07/24 21:38 Nitroglycerin (Nitroglycerin Sl 0.4 Mg/Tab Tab) 0.4 mg SL Q5M PRN PRN Reason: Chest Pain Stop: 02/23/24 21:42 Oxycodone HCl (Oxycodone Hcl Ir 5 Mg Tab (Immediate Release)) 5 mg PO Q4H PRN PRN Reason: Pain Stop: 02/07/24 21:38 Last Admin: 01/25/24 03:49 Dose: 5 mg Primidone (Primidone 50 Mg Tab) 25 mg PO DAILY TRINITY Stop: 02/24/24 08:59 Last Admin: 01/25/24 08:47 Dose: 25 mg (1) Chest pain Chest pain type: unspecified Qualified Code(s): R07.9 - Chest pain, unspecified (2) Syncope Syncope type: unspecified Qualified Code(s): R55 - Syncope and collapse
--- NOTE | 2024-01-25 10:51 | Pre Anesthesia Assessment ---
Date of Service January 25, 2024 Pre Sedation Assessment Vital Signs Temp Pulse Pulse Resp BP BP Pulse Ox 01/25/24 10:48 103 H 16 134/83 98 01/25/24 08:00 36.5 C 73 16 111/76 100 01/25/24 03:45 61 123/76 01/25/24 02:45 36.5 C 61 18 137/90 100 01/24/24 22:40 36.5 C 88 16 139/85 100 01/24/24 22:35 85 01/24/24 22:10 84 12 97 01/24/24 22:00 155/97 H 01/24/24 22:00 83 13 97 01/24/24 21:52 25 H 01/24/24 21:40 94 H 15 97 01/24/24 21:30 167/112 H 01/24/24 21:30 92 H 16 98 01/24/24 21:20 87 14 98 01/24/24 21:10 83 21 99 01/24/24 21:00 158/97 H 01/24/24 21:00 90 16 99 01/24/24 20:50 86 13 99 01/24/24 20:40 81 15 100 01/24/24 20:35 88 14 160/92 H 100 01/24/24 20:33 89 20 100 01/24/24 20:33 169/100 H 01/24/24 20:32 88 14 100 01/24/24 20:32 160/92 H 01/24/24 20:32 160/93 H 01/24/24 20:30 160/106 H 01/24/24 20:30 95 H 19 100 01/24/24 20:20 99 H 19 100 01/24/24 20:10 94 H 12 100 01/24/24 20:00 154/100 H 01/24/24 20:00 96 H 16 99 01/24/24 19:50 99 H 14 99 01/24/24 19:40 91 H 21 98 01/24/24 19:30 90 15 99 01/24/24 19:30 155/100 H 01/24/24 19:20 93 H 17 99 01/24/24 19:10 91 H 18 99 01/24/24 19:00 94 H 16 100 01/24/24 19:00 144/90 H 01/24/24 18:32 36.7 C 88 20 153/92 H 98 01/24/24 16:47 75 01/24/24 16:47 74 20 98 01/24/24 16:47 36.7 C 74 20 155/88 H 98 01/24/24 16:47 96 01/24/24 14:23 36.3 C L 95 H 16 131/94 100 O2 Del Method 01/25/24 10:48 Room Air 01/25/24 08:00 Room Air 01/25/24 03:45 01/25/24 02:45 Room Air 01/24/24 22:40 Room Air 01/24/24 22:35 01/24/24 22:10 01/24/24 22:00 01/24/24 22:00 01/24/24 21:52 01/24/24 21:40 01/24/24 21:30 01/24/24 21:30 01/24/24 21:20 01/24/24 21:10 01/24/24 21:00 01/24/24 21:00 01/24/24 20:50 01/24/24 20:40 01/24/24 20:35 Room Air 01/24/24 20:33 01/24/24 20:33 01/24/24 20:32 01/24/24 20:32 01/24/24 20:32 01/24/24 20:30 01/24/24 20:30 01/24/24 20:20 01/24/24 20:10 01/24/24 20:00 01/24/24 20:00 01/24/24 19:50 01/24/24 19:40 01/24/24 19:30 01/24/24 19:30 01/24/24 19:20 01/24/24 19:10 01/24/24 19:00 01/24/24 19:00 01/24/24 18:32 Room Air 01/24/24 16:47 01/24/24 16:47 Room Air 01/24/24 16:47 Room Air 01/24/24 16:47 Room Air 01/24/24 14:23 Room Air Cardiovascular Additional Comments: REG RHYTHM TACHYCARDIA SYSTOLIC MURMUR NO EDEMA Pre-Sedation Airway Assessment Smoking Status: Former smoker Hx Sleep Apnea: No Short, Thick Neck: No Thyromental Distance: > or= 3.5 Finger Breadths Oral Cavity: + WNL Mallampati Class: III ASA: ASA3 NPO Status Date of Last Intake of Fluids: 01/25/24 Time of Last Intake of Fluids: 09:00 Date of Last Intake of Solid Food: 01/17/24 Time of Last Intake of Solid Foods: 18:00 Notes The planned sedation has been discussed with the patient. Informed Consent was obtained. I have identified the patient, determined the appropriateness of sedation and have assessed the patient immediately prior to the procedure. All medicine(s) and interventions are by my order.
[2024-01-25] MEDS: HEPARIN (PORCINE) 1000 UNIT/ML 10 ML (CATH LAB USE ONLY) ONE (11:22)
[2024-01-25] MEDS: fentaNYL citrate PF 100 MCG/2 ML VIAL ONE (11:22)
[2024-01-25] MEDS: diphenhydrAMINE 50 MG/ML VIAL ONE (11:23)
[2024-01-25] MEDS: niCARdipine HCL INJ 2.5 MG/ML 10 ML AMP ONE (11:23)
[2024-01-25] MEDS: MIDAZOLAM HCL 1 MG/ML 2ML VIAL ONE ×2 (11:23→13:08)
[2024-01-25] MEDS: OPTIRAY 350 ONE (11:27)
--- NOTE | 2024-01-25 11:39 | Post Anesthesia Assessment ---
Date of Service January 25, 2024 Post Sedation Assessment Vital Signs Temp Pulse Pulse Resp BP BP Pulse Ox 01/25/24 10:48 103 H 16 134/83 98 01/25/24 08:00 36.5 C 73 16 111/76 100 01/25/24 03:45 61 123/76 01/25/24 02:45 36.5 C 61 18 137/90 100 01/24/24 22:40 36.5 C 88 16 139/85 100 01/24/24 22:35 85 01/24/24 22:10 84 12 97 01/24/24 22:00 155/97 H 01/24/24 22:00 83 13 97 01/24/24 21:52 25 H 01/24/24 21:40 94 H 15 97 01/24/24 21:30 167/112 H 01/24/24 21:30 92 H 16 98 01/24/24 21:20 87 14 98 01/24/24 21:10 83 21 99 01/24/24 21:00 158/97 H 01/24/24 21:00 90 16 99 01/24/24 20:50 86 13 99 01/24/24 20:40 81 15 100 01/24/24 20:35 88 14 160/92 H 100 01/24/24 20:33 89 20 100 01/24/24 20:33 169/100 H 01/24/24 20:32 88 14 100 01/24/24 20:32 160/92 H 01/24/24 20:32 160/93 H 01/24/24 20:30 160/106 H 01/24/24 20:30 95 H 19 100 01/24/24 20:20 99 H 19 100 01/24/24 20:10 94 H 12 100 01/24/24 20:00 154/100 H 01/24/24 20:00 96 H 16 99 01/24/24 19:50 99 H 14 99 01/24/24 19:40 91 H 21 98 01/24/24 19:30 90 15 99 01/24/24 19:30 155/100 H 01/24/24 19:20 93 H 17 99 01/24/24 19:10 91 H 18 99 01/24/24 19:00 94 H 16 100 01/24/24 19:00 144/90 H 01/24/24 18:32 36.7 C 88 20 153/92 H 98 01/24/24 16:47 75 01/24/24 16:47 74 20 98 01/24/24 16:47 36.7 C 74 20 155/88 H 98 01/24/24 16:47 96 01/24/24 14:23 36.3 C L 95 H 16 131/94 100 O2 Del Method 01/25/24 10:48 Room Air 01/25/24 08:00 Room Air 01/25/24 03:45 01/25/24 02:45 Room Air 01/24/24 22:40 Room Air 01/24/24 22:35 01/24/24 22:10 01/24/24 22:00 01/24/24 22:00 01/24/24 21:52 01/24/24 21:40 01/24/24 21:30 01/24/24 21:30 01/24/24 21:20 01/24/24 21:10 01/24/24 21:00 01/24/24 21:00 01/24/24 20:50 01/24/24 20:40 01/24/24 20:35 Room Air 01/24/24 20:33 01/24/24 20:33 01/24/24 20:32 01/24/24 20:32 01/24/24 20:32 01/24/24 20:30 01/24/24 20:30 01/24/24 20:20 01/24/24 20:10 01/24/24 20:00 01/24/24 20:00 01/24/24 19:50 01/24/24 19:40 01/24/24 19:30 01/24/24 19:30 01/24/24 19:20 01/24/24 19:10 01/24/24 19:00 01/24/24 19:00 01/24/24 18:32 Room Air 01/24/24 16:47 01/24/24 16:47 Room Air 01/24/24 16:47 Room Air 01/24/24 16:47 Room Air 01/24/24 14:23 Room Air Recovery Score Activity: Moves 4 extremities Respiration: Deep Breath/Cough Circulation: +/-20% PreAnes Value Consciousness: Fully Awake Oxygen Saturation: > 92% On Room Air Discharge Sedation Level of Care: Fast Track Phase II Post Sedation Plan On clinical assessment, the patient appears to have tolerated the sedation without complications. Patient is recovering as anticipated. Patient will continue to be monitored by nursing and may be discharged when sedation discharge criteria are met per below protocol. Upon Completions of procedure up to 15 minutes continue every 5 minute vital signs and the P.A.R. score; then discharge to a Phase I or Fast Track to Phase II per the following guidelines: * Discharge Patient to appropriate Phase II area if PAR is 8 or greater or return to pre- procedure baseline. The post - procedure orders will be as directed. * If PAR score is less than 8 or not return to pre-procedure baseline then patient will follow Phase I monitoring till PAR is reached for Phase II. The Phase I may be done in procedure room or may call to secure a Phase I area. * If naloxone or flumazenil are used for reversal, hold in Phase I for continued monitoring from when last reversal dose was given for a minimum of 60 minutes or longer pending the nurse and/or physician discretion of patient condition before discharge to Phase II. Please call the Sedation Physician to re-evaluate and complete post-note for discharge to Phase II area. Do NOT discharge from procedure sedation or Phase 1 until post- sedation evaluation note is complete by procedure /sedation MD Sedation Discharge Instructions to be given to the patient at discharge to home.
[2024-01-25 11:57] LABS: Amphetamines+Metham, Urine Neg (Neg); Barbiturates, Urine Neg (Neg); Benzodiazepine, Urine Neg (Neg); Cocaine, Urine Neg (Neg); Fentanyl, Urine Neg (Neg); MDMA (Ecstacy), Urine Neg (Neg); Marijuana, Urine Neg (Neg); Methadone, Urine Neg (Neg); Opiate, Urine Neg (Neg); Phencyclidine, Urine Neg (Neg)
--- NOTE | 2024-01-25 12:25 | Electrocardiogram Report ---
Test Reason : Blood Pressure : / mmHG Vent. Rate : 076 BPM Atrial Rate : 076 BPM P-R Int : 146 ms QRS Dur : 088 ms QT Int : 416 ms P-R-T Axes : 062 071 -55 degrees QTc Int : 468 ms Normal sinus rhythm T wave abnormality, consider inferior ischemia Abnormal ECG When compared with ECG of 24-JAN-2024 18:39, T-wave inversion in Inferior leads now present Confirmed by Destin Louise ([id number]) on 01/25/2024 12:25:22 PM Referred By: REFERRED SELF Confirmed By:Destin Louise
--- NOTE | 2024-01-25 12:26 | Communication Note ---
Date of Service: January 25, 2024 Patient referred for coronary angiography after episode of chest pain with transient ST elevation, 2-1 AV block Moderate mid right coronary narrowing but no obstructive disease History and findings suggestive of Prinzmetal angina Will discontinue lisinopril, begin amlodipine Arrhythmia concerns including conduction abnormalities with symptoms. Maintain telemetry in hospital Underlying concerns include moderate to severe mitral insufficiency without heart failure. Cardiology will follow
--- NOTE | 2024-01-25 12:30 | Electrocardiogram Report ---
Test Reason : Blood Pressure : / mmHG Vent. Rate : 075 BPM Atrial Rate : 075 BPM P-R Int : 144 ms QRS Dur : 086 ms QT Int : 412 ms P-R-T Axes : 034 045 -36 degrees QTc Int : 460 ms Normal sinus rhythm T wave abnormality, consider inferior ischemia Abnormal ECG When compared with ECG of 25-JAN-2024 02:52, No significant change was found Confirmed by Destin Louise ([id number]) on 01/25/2024 12:29:48 PM Referred By: REFERRED SELF Confirmed By:Destin Louise
[2024-01-25] MEDS: amLODIPine BESYLATE 5 MG TAB PO SCH ×2 (13:42→20:59)
--- NOTE | 2024-01-25 15:20 | Hospitalist Progress Note ---
Date of Service January 25, 2024 Assessment & Plan (1) Chest pain: Plan Pt is a 48yo with PMhx significant for CVA, hypertension, migraine, essential tremors, pulmonary nodules, past tobacco abuse presenting with chest pain and syncope. Chest Pain Syncope Chest pain associated with syncopal event Rule out ACS given patient risk factors Uncontrolled hypertension and anxiety possibly contributory History hypertension of BP medications for about 10 years due to low BP in the past as per patient account EKG, echo, trops cardiology consulted, appreciate recs Syncope workup with Head and neck CTA, brain MRI TSH, toxicology and alcohol screens Continue aspirin for CAD/stroke prevention Initiate lisinopril for BP control Anxiolytic as needed hx CVA On aspirin migraine presenting frontal headache symptoms different from usual migraine attack continue to monitor essential tremors stable on primidone Emphysema pulmonary nodules not new finding as per patient. DVT prophylaxis. Lovenox subcu Full code Admission and Anticipated Discharge Date Admission Date: January 24, 2024 Subjective Pt seen in the AM, a few minutes after having another syncopal episode per son in the room. States that she said he chest hurt and then her eyes rolled back. Per pt having chest pain in center in middle of chest. Review of Systems Review of Systems: All systems reviewed & are unremarkable except as noted in Subjective Physical Exam Physical Exam: General: Alert, oriented. mild distress Psych: Appropriate mood and affect Neuro: did not want to move in the bed HEENT: NC/AT Chest: Nontender to palpation. CV: RRR Resp: Breath sounds clear bilaterally, no increased effort of breathing. Abdomen: Soft, nontender, nondistended. Extremities: No edema in lower extremities bilaterally. Results & Data Results & Data Vital Signs (Past 12 Hours) Vital Signs Temp Pulse Pulse Pulse Resp BP Pulse Ox 01/25/24 13:00 83 16 118/74 99 01/25/24 12:30 37 C 85 18 135/81 97 01/25/24 11:57 79 01/25/24 11:57 77 12 118/66 96 01/25/24 11:46 80 14 134/77 95 01/25/24 10:48 103 H 16 134/83 98 01/25/24 08:00 36.5 C 73 16 111/76 100 01/25/24 03:45 61 123/76 O2 Del Method 01/25/24 13:00 Room Air 01/25/24 12:30 Room Air 01/25/24 11:57 01/25/24 11:57 Room Air 01/25/24 11:46 Room Air 01/25/24 10:48 Room Air 01/25/24 08:00 Room Air 01/25/24 03:45 (1) Chest pain Chest pain type: unspecified Qualified Code(s): R07.9 - Chest pain, unspecified
--- NOTE | 2024-01-25 16:26 | Cardiac Catheterization ---
[facility] Data: Detailer Cardiac Status Clinical evaluation leading to the procedure CAD Presenation: Unstable angina Anginal Classification: CCS IV Heart Failure: No Cardiogenic Shock within 24 Hours: No Cardiac Arrest within 24 Hours: No Imaging Studies Past 6 Months: Yes Stress Studies Past 6 Months: No Coronary Anatomy Dominant: Right Left Main (% Stenosis): Normal LAD (% Stenosis): Normal D1 (% Stenosis): Normal D2 (% Stenosis): Normal Circumflex (% Stenosis): Normal OM1 (% Stenosis): Normal RCA (% Stenosis): Mid (30%) R PDA (% Stenosis): Normal R PL1 (% Stenosis): Normal Diagnostic Physicians Name: Nico Sultana MD, PhD Closure Device Percutaneous Entry Location: Radial Closure Device: Radial Band Recommendations: Medical Therapy and/or Counseling Cardiac Cath Procedure Full Procedure Date January 25, 2024 Pre-Procedure Diagnosis Pre-Procedure Diagnosis: Acute Coronary Syndrome and Arrhythmia AUC Score AUC Score: 07 Post-Procedure Diagnosis Post-Procedure Diagnosis: Normal Coronary Arteries Procedure(s) Performed Procedure(s) Performed: Coronary Angiography and Ultrasound Guided Vascular Access Cable Swager Nico Sultana MD, PhD Estimated Blood Loss Estimated Blood Loss: 5 cc Medication(s) Medication(s): Diphenhydramine, Fentanyl, Heparin, Lidocaine 1%, Nicardipine, Nitroglycerin and Versed Summary of Findings Brief description: Patient was brought to the cardiac catheterization suite where she was shaved and prepped in a sterile fashion. Sedated using IV Versed and fentanyl. Soft tissues of the right wrist were anesthetized using 3 mL of 1% Xylocaine. Using ultrasound for guidance (image saved), the right radial artery was accessed and a 6 [place]grin radial artery glide sheath was placed. Patient was provided anticoagulation with IV heparin and antispasmodics including nicardipine and nitroglycerin. All catheters were advanced and exchanged over a 0.035 J-tip wire. Left coronary angiography in orthogonal views with a 5 [place] 4 diagnostic catheter. Right coronary angiography in orthogonal views with a 5 [place] 4 diagnostic catheter. Diagnostic catheters were removed. Radial artery sheath was removed. Hemostasis was obtained using the TR band. Patient was hemodynamically stable and asymptomatic. She was returned to the recovery area. This ended the case. Coronary angiography findings: ESA-ccrol-uuilklj short vessel which bifurcates into LAD and circumflex. Appear to have some catheter induced vasospasm on the early views. No disease. ZTH-oobns-evunalz and transapical. Provides 2 large septal branches and a medium caliber branching first diagonal plus a small to medium caliber branching second diagonal. No angiographically evident disease in the LAD or its branches. LCx-medium to large caliber and nondominant. Travels in the AV groove where it becomes a multi branching OM1. This vessel has no angiographically evident disease. AMS-yrmal-rjbduze and dominant. Bifurcates distally into a large caliber long tortuous PDA and a large caliber multi branching posterolateral. The mid RCA has focal 30 to 40% stenosis. The remainder of the RCA and its branches have no angiographically evident disease. Summary: 1. Mild nonocclusive disease of the RCA. Otherwise no angiographically evident disease. There was some catheter induced left main vasospasm. 2. Additional workup per primary cardiology team. Hemodynamics Rest Ao:: 150/88 mmHg Final Ao: 122/79 mm of LV: Not performed Recommendations Recommendations: Medical Therapy and/or Counseling Radiation Exposure (mGy) 227 mGy, fluoroscopy time 3.9 Contrast (mls) 60 mL Anesthesia 3 mg Versed, 75 mcg fentanyl, 25 mg Benadryl IV. Start 1106, End 1130 Procedural Complication(s) None Disposition Detailer Holding/Recovery I attest to the content of the Intraoperative Record and any orders documented therein. Any exceptions are noted below. [facility] Card [facility] Procedure Codes Cardiac Catheterization Procedure 1: Cardiovascular Cath Procedures: 07067 Coronaries Therapeutic Services & Ancillary Procedure 1: Cardiovascular Tx and Anc Procedures: 95286 Ultrasonic Guidance Vascular Access Moderate Sedation Procedure 1: Sedation/Anesthesia: 38502 Mod Sedation by the same physician;Init15 Min Child Age 5 & Up (Initial 15 minutes, start 1106) Procedure 2: Sedation/Anesthesia: 78419 Mod Sedation by the same physician; Ea [id number] Minutes (Additional 9 min, and 1130) PG Care Time/CCT Total # of Minutes Spent Total Time Spent with Patient: Total time spent is greater than 50% in coordination of care (as documented) at patient's floor/unit and/or counseling patient:
[2024-01-25] MEDS: GADOBUTROL 65ML VIAL IV ONE (18:00)
--- NOTE | 2024-01-25 18:08 | Magnetic Resonance Report ---
MRI OF THE BRAIN WITHOUT AND WITH IV CONTRAST CLINICAL HISTORY: Recurrent syncopal episodes. COMPARISON STUDY: Head CT January 24, 2024. TECHNIQUE: Utilizing a 1.5 Emiliana magnet and dedicated coil, multiplanar, multiecho imaging of the br ain was performed pre and postcontrast administration. IV administration of 4.5 mL of Gadavist contr ast was uneventful. FINDINGS: There are no foci of restricted diffusion to suggest acute infarct. No acute intracranial h emorrhage, midline shift or mass effect is present. Brain volume is normal. Ventricular system is nor mal. Basal cisterns are patent. Flow-voids for the major intracranial vessels are present. There is n o intracranial mass or pathologic enhancement. There are scattered small white matter T2 hyperintense foci. Calvarial signal is normal. No evidence for sinusitis. There is no orbital abnormality. There is no mastoid fluid. IMPRESSION: 1. No acute intracranial findings. 2. No intracranial mass or pathologic enhancement. 3. Scattered small white matter T2 hyperintense foci. These are nonspecific but may reflect sequela o f migraine headaches or mild small vessel disease. ACT 112: Negative or not required by law. Electronically signed by: Xu Baig M.D. 01/25/2024 6:06 PM
[2024-01-25] MEDS: OPTIRAY 320 125ml IV ONE (18:11)
--- NOTE | 2024-01-25 18:47 | CT Scan Report ---
CT ANGIOGRAPHY OF THE NECK WITH CONTRAST CLINICAL HISTORY: Syncope. COMPARISON STUDY: No previous studies for comparison. Technique: CT angiography of the carotid and vertebral arteries was obtained using Optiray and 3D rec onstruction on an independent workstation. NASCET criteria was utilized. Automated exposure control was utilized for the study. A dose lowering technique was utilized adhering to the principles of ALA RA. CT DOSE: 434.53 mGy.cm Findings: There is moderate stenosis of the proximal left subclavian artery due to noncalcified plaqu e. The bilateral common carotid, cervical internal carotid and vertebral arteries are patent. There i s no stenosis or dissection within these vessels. There is minimal plaque within the left carotid bif urcation. Emphysema is incidentally noted within the lung apices. There is no cervical lymphadenopath y. CTA of the head will be reported separately. IMPRESSION: 1. No stenoses or dissections within the bilateral common carotid, cervical internal carotid or verte bral arteries. 2. Moderate stenosis of the proximal left subclavian artery due to noncalcified plaque. 3. Emphysema. ACT 112: Negative or not required by law. Electronically signed by: Xu Baig M.D. 01/25/2024 6:45 PM
--- NOTE | 2024-01-25 19:01 | CT Scan Report ---
CTA ANGIOGRAPHY OF THE HEAD CLINICAL HISTORY: Syncope. COMPARISON STUDY: Head CT January 24, 2024 and MRI of the brain performed earlier today. TECHNIQUE: Helical axial images of the head were obtained following uneventful intravenous administr ation of 119 cc of Optiray. Sagittal and coronal reconstructions were viewed as well as maximal inten sity projections on an independent 3-D workstation. Automated exposure control was utilized for the study. A dose lowering technique was utilized adhering to the principles of ALARA. FINDINGS: The bilateral M1, M2, A1 and A2 segments are patent. No intracranial aneurysm is present. N o dissection is present. The posterior circulation is intact. No stenoses within the intracranial ves sels are present. IMPRESSION: Unremarkable CTA of the head. No vessel occlusion. No intracranial aneurysm. ACT 112: Negative or not required by law. Electronically signed by: Xu Baig M.D. 01/25/2024 7:00 PM
[2024-01-25] MEDS ORDERED: lisinopril 2.5 MG TAB PO SCH (21:00)
[2024-01-25] MEDS: NITROGLYCERIN SL 0.4 MG/TAB TAB SL PRN (21:17)
[2024-01-26 07:45] LABS: Hematocrit (blood only) 36.6 % (37.0-47.0); Hemoglobin 12.4 g/dl (12.0-16.0); Mean Corpuscular Hemoglobin 30.4 pg (25.0-34.0); Mean Corpuscular Hgb Conc 33.9 g/dL (32.0-36.0); Mean Corpuscular Volume 89.7 fL (80.0-100.0); Mean Platelet Volume 10.1 fL (9.4-12.4); Platelet Count 278 K/uL (130-400); RDW Coefficient of Variation 12.9 % (11.5-14.5); RDW Standard Deviation 42.2 fL (36.4-46.3); Red Blood Count 4.08 M/uL (4.20-5.40); White Blood Count 7.56 K/ul (4.8-10.8)
[2024-01-26 08:00] LABS: BUN Creatinine Ratio 12.5 (10-20); Calcium 8.4 mg/dl (8.6-10.3); Creatinine Clr Calc Pharmacy 67.9 ml/min; Est GFR (Non-African American) 98.3 ml/min; Magnesium 1.8 mg/dl (1.7-2.4); Phosphorus 3.9 mg/dl (2.5-4.9); Potassium 4.2 mmol/L (3.5-5.1)
[2024-01-26 08:07] LABS: Troponin I High Sensitivity 29.1 pg/ml (0-14)
[2024-01-26 08:10] LABS: Partial Thromboplastin Time 26 Seconds (21-31)
[2024-01-26] MEDS: MoRPHine SULFATE 2 MG/ML CARP IV PRN (10:28)
[2024-01-26] MEDS ORDERED: STAT IV Infusion **Titration per Protocol STA ×2 (11:04→11:07)
--- NOTE | 2024-01-26 11:07 | Cardiology Progress Note ---
Date of Service January 26, 2024 Assessment & Plan (1) Coronary artery vasospasm: (2) ST elevation: (3) Second degree AV block, Mobitz type II: (4) Syncope: (5) Mitral regurgitation: Plan 48-year-old female admitted with multiple episodes of syncope associated with chest pain. ST elevation occurring 01/25/2024 with second-degree AV block prompting urgent cardiac catheterization. Coronary angiography demonstrated mild to moderate mid RCA stenosis without significant obstructive disease. Presumptive diagnosis of coronary vasospasm. Amlodipine initiated yesterday. No recurrence of chest discomfort, ST elevation, or AV block overnight. Continue current medications including amlodipine 5 mg twice daily and low-dose aspirin. Patient remain hospitalized for an additional 24 to 48 hours. All questions answered to satisfaction of both the patient and her . Addendum: Contacted by hospitalist due to recurrent chest pain. ECG demonstrating inferior ST elevation with reciprocal changes and 2-1 AV block. Patient treated with sublingual nitroglycerin with improvement of symptoms. Recommend continuous IV nitroglycerin infusion and transferred to the intensive care unit. Continue amlodipine 5 mg twice daily. Cardiac catheterization films reviewed from 01/25/2024 demonstrating mild to moderate mid RCA stenosis. Reviewed case, ECGs, and cardiac catheterization with interventionalist on-call. Recommend repeat cardiac catheterization. Patient somewhat hesitant, however, agreeable to procedure via femoral approach. 'Heart Alert' called overhead. Patient will be transferred to the Welding Manager for procedure. I spent a total of 65 minutes on the date of service in preparation, delivery, and documentation of the care provided to this patient, excluding any time spent in the performance of separately billed services. Admission and Anticipated Discharge Date Admission Date: January 24, 2024 Subjective Patient seen examined at the bedside. Feeling well overnight. No recurrent chest pain or shortness of breath. Remains in sinus rhythm on telemetry. Amlodipine initiated yesterday. Review of Systems Review of Systems: All systems reviewed & are unremarkable except as noted in Subjective Physical Exam Constitutional: well nourished; no acute distress Respiratory: no respiratory distress and no labored breathing Auscultation: lungs clear to auscultation bilaterally; no crackles, no rales, no rhonchi and no wheezes Cardiovascular: Rate/Rhythm: regular rate and regular rhythm Heart Sounds: normal S1 and normal S2; no murmur (2/6 midsystolic murmur heard best at the apex.) Vessels: no JVD and no carotid bruit Extremities: no edema Gastrointestinal (Abdomen): Inspection/Auscultation: abdomen normal to inspection and normal bowel sounds; abdomen not distended Percussion/Palpation: abdomen soft; abdomen nontender, no guarding and abdomen not rigid Neurologic: CN's II-XI intact bilaterally and moves all extremities; no focal motor deficits Results & Data Vital Signs (Past 12 Hours) Vital Signs Temp Pulse Resp BP Pulse Ox O2 Del Method 01/26/24 11:00 36.8 C 69 16 109/64 97 Room Air 01/26/24 08:00 Room Air 01/26/24 07:58 36.4 C L 68 16 126/83 99 Room Air 01/26/24 02:30 36.5 C 60 18 108/72 97 Room Air Laboratory Results Cardiac Enzymes 01/25/24 01/26/24 Range/Units 21:40 07:10 Troponin I High Sens 35.2 H D 29.1 H (0-14) pg/ml Coagulation 01/26/24 Range/Units 07:29 APTT 26 (21-31) Seconds CBC 01/26/24 Range/Units 07:06 WBC 7.56 (4.8-10.8) K/ul RBC 4.08 L (4.20-5.40) M/uL Hgb 12.4 (12.0-16.0) g/dl Hct 36.6 L (37.0-47.0) % Plt Count 278 (130-400) K/uL Comprehensive Metabolic Panel 01/26/24 Range/Units 07:10 Sodium 139 (136-145) mmol/L Potassium 4.2 D (3.5-5.1) mmol/L Chloride 108 H (98-107) mmol/L Carbon Dioxide 29 (21-32) mmol/L BUN 9 (6-23) mg/dl Creatinine 0.72 (0.6-1.2) mg/dl Glucose 94 (70-99(Fasting)) mg/dl Calcium 8.4 L (8.6-10.3) mg/dl Intake and Output 01/25/24 01/26/24 01/26/24 22:59 06:59 14:59 Intake Total 801.667 / 901.667 Output Total 125 / 125 Balance 801.667 / 901.667 -125 / -125 Intake: IV 801.667 / 901.667 D5w and Lactated Ringers 1,000 801.667 / 801.667 ml @ 50 mls/hr IV .Q20H FOR[facility], [facility] Rx# :[id number] Output: Urine 125 / 125 Other: Other Intake Source sips # Unmeasured Voids 2 1 Weight 49.3 kg Weight Measurement Method Built in [facility] (4) Syncope Syncope type: unspecified Qualified Code(s): R55 - Syncope and collapse (5) Mitral regurgitation Cardiac valve disease etiology: nonrheumatic Qualified Code(s): I34.0 - Nonrheumatic mitral (valve) insufficiency
--- NOTE | 2024-01-26 11:22 | Hospitalist Progress Note ---
Date of Service January 26, 2024 Assessment & Plan (1) Chest pain: Plan Pt is a 48yo with PMhx significant for CVA, hypertension, migraine, essential tremors, pulmonary nodules, past tobacco abuse presenting with chest pain and syncope. Chest Pain Syncope Chest pain associated with syncopal event Rule out ACS given patient risk factors Uncontrolled hypertension and anxiety possibly contributory History hypertension of BP medications for about 10 years due to low BP in the past as per patient account Cardiology consulted [facility] initially wnl Echo noting mitral valve prolapse EKG concerning on 01/24, taken to cardiac cath, dx at time left vasospasm with noted 30% RCA stenosis Repeat episode on 01/25, EKG concerning, cardiac cath once more, noting 70% RCA stenosis, pt s/p ISI placement x1 Interventional cardiology recommending DAPT x 6 months, continue coronary vasodilators, cardiac rehab, ASCVD risk factor modification Appreciate further cardiology recs, monitored in ICU post procedure Syncope workup with Head and neck CTA, brain MRI -noted moderate stenosis of left subclavian artery, consider Vascular Surgery followup TSH, toxicology and alcohol screens negative Anxiolytic as needed Continue to monitor on telemetry hx CVA On aspirin migraine presenting frontal headache symptoms different from usual migraine attack continue to monitor essential tremors stable on primidone Emphysema pulmonary nodules not new finding as per patient. DVT prophylaxis. Lovenox subcu Full code Admission and Anticipated Discharge Date Admission Date: January 24, 2024 Subjective Pt seen multiple times. Notified by nursing, pt had another syncopal episode with 10/10 chest pain at the time. At bedside, pt resting comfortably, laying in bed with partner next to her. Denied chest pain at the time. Review of Systems Review of Systems: All systems reviewed & are unremarkable except as noted in Subjective Physical Exam Physical Exam: General: Alert, oriented. Psych: Appropriate mood and affect HEENT: NC/AT Chest: Nontender to palpation. CV: RRR Resp: Breath sounds clear bilaterally, no increased effort of breathing. Abdomen: Soft, nontender, nondistended. Extremities: No edema in lower extremities bilaterally. Results & Data Results & Data Vital Signs (Past 12 Hours) Vital Signs Temp Pulse Resp BP Pulse Ox O2 Del Method 01/26/24 11:00 36.8 C 69 16 109/64 97 Room Air 01/26/24 08:00 Room Air 01/26/24 07:58 36.4 C L 68 16 126/83 99 Room Air 01/26/24 02:30 36.5 C 60 18 108/72 97 Room Air Diagnostic Findings Chest X-Ray 01/24/24 14:26 XR chest 1V portable CLINICAL HISTORY: Chest pain, nonspecific TECHNIQUE: Single frontal radiograph of the chest was obtained. Comparison: None available at the time of this dictation. FINDINGS: No lines and tubes are seen. The cardiomediastinal silhouette is normal. The lungs are clear. No evidence of pleural effusion or pneumothorax. IMPRESSION: No acute chest disease. ACT 112: Negative or not required by law. Electronically signed by: Raghu Murray M.D. 01/24/2024 5:38 PM Chest CTA 01/24/24 17:24 CT angio chest PE protocol CLINICAL HISTORY: PE TECHNIQUE: Multidetector row helical CT of the chest was performed with angiographic protocol. Coronal and sagittal reformations were obtained. Coronal and sagittal MIPS were obtained from the axial data set and were submitted for review. Automated dose lowering techniques and/or adjustment according to patient size were utilized for this exam. CT DOSE: 327.6 mGy.cm Comparison: Comparison is made to chest radiograph 01/24/2024 FINDINGS: Lungs and pleura: Diffuse centrilobular emphysema is seen most prominent in the upper lobes. There is a 6 mm nodule in the right lower lobe (series 4 image 97) and a 3 mm nodule in the right middle lobe (image 64). Heart and pericardium: Heart size is normal. No pericardial effusion. Vessels: No evidence of pulmonary embolism. Mediastinum and janet: Unremarkable. Chest wall and lower neck: Unremarkable. Abdomen: Unremarkable. Bones: Unremarkable. IMPRESSION: 1. No acute abnormality and in particular no evidence of pulmonary embolus. 2. Emphysema is seen. 3. Pulmonary nodules as above. According to Fleischner criteria, CT chest should be performed at 6-12 months. In high-risk patients, a 18-24 month follow- up is recommended, in low-risk patients, this 18-24 month follow-up CT is opt ional. ACT 112: Negative or not required by law. Electronically signed by: Raghu Murray M.D. 01/24/2024 6:[address] 01/24/24 21:36 Exam(s): CT HEAD Without Contrast EXAM: CT Head Without Intravenous Contrast CLINICAL HISTORY: Reason for exam: berrios, syncope. TECHNIQUE: Axial computed tomography images of the head/brain without intravenous contrast. CTDI is 37.22 mGy and DLP is 547.75 mGy-cm. Automated exposure control was utilized for the study. A dose lowering technique was utilized adhering to the principles of ALARA. COMPARISON: No relevant prior studies available. FINDINGS: No acute intracranial hemorrhage. No midline shift or mass effect. The territorial cole-white matter differentiation is maintained throughout. The ventricles and sulci are commensurate with age. The visualized orbits appear grossly unremarkable. The calvarium is intact. The visualized paranasal sinuses and mastoid air cells are grossly clear. IMPRESSION: No acute intracranial hemorrhage, midline shift, or mass effect. Electronically signed by: Cholo Nieto MD 01/24/24 22:07 PM Brain MRI 01/25/24 10:05 MRI OF THE BRAIN WITHOUT AND WITH IV CONTRAST CLINICAL HISTORY: Recurrent syncopal episodes. COMPARISON STUDY: Head CT January 24, 2024. TECHNIQUE: Utilizing a 1.5 Emiliana magnet and dedicated coil, multiplanar, multiecho imaging of the brain was performed pre and postcontrast administration. IV administration of 4.5 mL of Gadavist contrast was uneventful. FINDINGS: There are no foci of restricted diffusion to suggest acute infarct. No acute intracranial hemorrhage, midline shift or mass effect is present. Brain volume is normal. Ventricular system is normal. Basal cisterns are patent. Flow- voids for the major intracranial vessels are present. There is no intracranial mass or pathologic enhancement. There are scattered small white matter T2 hyperintense foci. Calvarial signal is normal. No evidence for sinusitis. There is no orbital abnormality. There is no mastoid fluid. IMPRESSION: 1. No acute intracranial findings. 2. No intracranial mass or pathologic enhancement. 3. Scattered small white matter T2 hyperintense foci. These are nonspecific but may reflect sequela of migraine headaches or mild small vessel disease. ACT 112: Negative or not required by law. Electronically signed by: Xu Baig M.D. 01/25/2024 6:06 PM Head CTA 01/25/24 10:05 CTA ANGIOGRAPHY OF THE HEAD CLINICAL HISTORY: Syncope. COMPARISON STUDY: Head CT January 24, 2024 and MRI of the brain performed earlier today. TECHNIQUE: Helical axial images of the head were obtained following uneventful intravenous administration of 119 cc of Optiray. Sagittal and coronal reconstructions were viewed as well as maximal intensity projections on an independent 3-D workstation. Automated exposure control was utilized for the study. A dose lowering technique was utilized adhering to the principles of ALARA. FINDINGS: The bilateral M1, M2, A1 and A2 segments are patent. No intracranial aneurysm is present. No dissection is present. The posterior circulation is intact. No stenoses within the intracranial vessels are present. IMPRESSION: Unremarkable CTA of the head. No vessel occlusion. No intracranial aneurysm. ACT 112: Negative or not required by law. Electronically signed by: Xu Baig M.D. 01/25/2024 7:00 PM Neck CTA 01/25/24 10:05 CT ANGIOGRAPHY OF THE NECK WITH CONTRAST CLINICAL HISTORY: Syncope. COMPARISON STUDY: No previous studies for comparison. Technique: CT angiography of the carotid and vertebral arteries was obtained using Optiray and 3D reconstruction on an independent workstation. NASCET criteria was utilized. Automated exposure control was utilized for the study. A dose lowering technique was utilized adhering to the principles of ALARA. CT DOSE: 434.53 mGy.cm Findings: There is moderate stenosis of the proximal left subclavian artery due to noncalcified plaque. The bilateral common carotid, cervical internal carotid and vertebral arteries are patent. There is no stenosis or dissection within these vessels. There is minimal plaque within the left carotid bifurcation. Emphysema is incidentally noted within the lung apices. There is no cervical lymphadenopathy. CTA of the head will be reported separately. IMPRESSION: 1. No stenoses or dissections within the bilateral common carotid, cervical internal carotid or vertebral arteries. 2. Moderate stenosis of the proximal left subclavian artery due to noncalcified plaque. 3. Emphysema. ACT 112: Negative or not required by law. Electronically signed by: Xu Baig M.D. 01/25/2024 6:45 PM (1) Chest pain Chest pain type: unspecified Qualified Code(s): R07.9 - Chest pain, unspecified
--- OUTSIDE RECORDS SUMMARY | 2024-01-26 11:33 | External Medical Summary | Continuity of Care Document ---
Author Name Unknown Organization [facility] Address [address] [place] [id number] Phone [phone] Problems Active Problems Provider Date Depressive disorder Anne-Marie Swenson Onset: 09/2011 Mitral valve disorder Marsha Monroy PA-C Onset: Note: Mild MR: ECHO 06/26/13 Migraine Wilfred Shipman MD Onset: History of cerebrovascular accident Wilfred knutson MD Onset: 05/11/2015 Note: incidental finding lac unar stroke left caudate nucleus: MRI 05/10/15 Chronic headache disorder Wilfred Shipman MD Onset: 06/26/2016 Note: Chronic Daily Headache s Otosclerosis FELICIANO Sheehan Onset: 2019 Pulmonary emphysema FELICIANO Sheehan Onset: Social History Type Date Description Comments Sex Unknown Tobacco Use Start: Unknown End: Unknown Former Cigarette Smoker Cigarette Use Quit - Age 47 Smoking Status Reviewed: 07/26/23 Former Cigarette Smo ker Tobacco Use Start: Unknown Never Smoked Cigars Tobacco Use Start: Unknown Never Smoked A Pipe Smokeless Tobacco Never Used Smokeless To bacco ETOH Use Occasionally consumes alcoho l Tobacco Use Start: Unknown Patient is a cur rent smoker, smokes every day Recreational Drug Use Denies Drug Use Allergies and adverse reactions Active Allergies Criticality Reaction | Severity Comments Date Sinequan Unable to assess criticality Urticaria 05/28/2012 Mushrooms Unable to assess criticality Anaphylaxis 05/28/2012 Medications Active Medications SIG Qnty Indications Ordering Provider Date Trazodone [id number] Tablets 1/2-1 tab by mouth as needed at bedtime 30tabs Wilfred Shipman MD 09/26/2023 Deeihijht37xg Tablets 1 tab at bedtime (neurology) Wilfred Shipman MD 09/26/2023 Najoulp233fo/ml Solution Auto-Inject (neurology) Wilfred Shipman MD 09/26/2023 Vitamin D (Ergocalciferol)15536 Unit Capsules take 1 capsule by mouth once weekly for 3 months 12caps Wilfred Shipman MD 07/27/2023 Rtsdgbk913rp Tablets 1 tab po at the onset of a migraine, repeat x 1 in a 24 hour period if needed 14tabs G43.009 Wilfred Shipman MD 10/19/2022 Ativan0.5mg Tablets 1/2 tab -1 tab by mouth as needed anxiety 30tabs Wilfred Shipman MD 07/07/2022 Aspirin Adult Low Emss51oj Tablets DR 1 by mouth every day Wilfred Shipman MD 05/11/[address] Part 1 cap po daily 90caps Wilfred Shipman MD History Medications [id number] Tablets 1 by mouth tw ice a day x 10 days 20tabs Wilfred Shipman MD 08/10/2023 - 08/20/2023 Jtyvczhmjd625ht Tablets 1 tab by mouth three times a day x 10 days 30tabs Wilfred Shipman MD 06/11/2023 - 07/26/2023 Gentamicin Sulfate0.1% Ointment apply to the eye lid twice a day x 5days 15gm Wilfred Shipman MD 06/11/2023 - 06/11/2023 Cavxjiperfam9cj/GM Ointment apply to affected eyes up to 4x/day x7 days; apply 1/2cm ribbon to lower lid pocket 7gm Wilfred Shipman MD 06/11/2023 - 07/26/2023 Medications Administered in Office Medication SIG Qnty Indications Ordering Provider Date Injection Promethazine Hcl 5 0 MGInjection FELICIANO Sheehan 0 Injection Ketorolac Trometha mine Per 15 mg/.5cc (Toradol)Injection FELICIANO Sheehan 07/09/2020 Injection Promethazine Hcl 5 0 MGInjection FELICIANO Sheehan 0 Injection Ketorolac Trometha mine Per 15 mg/.5cc (Toradol)Injection Natalie Balderas, FELICIANO 06/11/2020 Injection Kenalog 10 MG [facility] [id number] Natalie Balderas, FELICIANO 0 12/03/2019 Injection Promethazine Hcl 5 0 MGInjection Natalie Balderas, FELICIANO 0 Injection Promethazine Hcl 5 0 MGInjection Natalie Balderas, CLIENT TECHNICAL SPECIALIST 0 Injection Ketorolac Trometha mine Per 15 mg/.5cc (Toradol)Injection Natalie Balderas, FELICIANO 10/16/2019 Injection Promethazine Hcl 5 0 MGInjection Natalie Balderas, FELICIANO 0 Injection Ketorolac Trometha mine Per 15 mg/.5cc (Toradol)Injection FELICIANO Sheehan 08/29/2019 Injection Methylprednisolone Acetate 40 MGInjection Natalie Balderas, FELICIANO 12/12/2018 Injection Ketorolac Trometha mine Per 15 mg/.5cc (Toradol)Injection FELICIANO Sheehan 06/28/2015 Immunizations CPT Code Status Date Vaccine Lot # [id number] Given 06/18/2019 Influenza Virus Vaccine, Quad, Preserv Free, 6Mon And Up [id number] 69605 Given 05/26/2016 Influenza Virus Vaccine, Quadrivalent, Im Use [id number] 49423 Given 06/08/2015 Influenza Virus Vaccine, Quadrivalent, Im Use [id number] 20719 Given 06/25/2014 Influenza Virus Vaccine, Quadrivalent, Im Use 39873 Given 10/17/2013 Influenza Vac, Split 3 Yr s And Up [id number] 08179 Given 05/27/2009 Influenza Vac, Split 3 Yr s And Up [id number] Refused 12/08/2021 Influenza Vacci ne Quadrivalent Preser/Antibiotic Free [place] Use 64226 Refused 10/21/2020 Moderna Sars-Co v-2 (Cov-19) vacc,100 mcg/ 0.5 mL 12Y+EMR Doc Only [id number] Refused 05/14/2020 Influenza Virus Vaccine, Quad, Preserv Free, 6Mon And Up 42716 Refused 02/10/2019 Pneumococcal Vaccine/Pneu movax 23 [id number] Refused 02/10/2019 Tdap (Tetanus, diphtheria & acel. pertussis) Adacel or Boostrix 84813 Refused 02/10/2019 Influenza Virus Vaccine, Quadrivalent, Im Use 20522 Refused 06/06/2017 Influenza Virus Vaccine, Quadrivalent, Im Use 89664 Refused 09/28/2016 Tdap (Tetanus, diphtheria & acel. pertussis) Adacel or Boostrix Vital Signs Date Vital Result Comment 09/26/2023 1:59pm BP Systolic 126 mmHg BP Diastolic 72 mmHg Heart Rate 81 /min Weight 101.38 lb Weight 45.984 kg Height 60 inches 5'0" BMI (Body Mass Index) 19.8 kg/m2 O2 % BldC Oximetry 97 % [place] Body Weight 100 lb 07/26/2023 9:33am BP Systolic 120 mmHg BP Diastolic 72 mmHg Heart Rate 91 /min Weight 103.38 lb Weight 46.891 kg Height 60 inches 5'0" BMI (Body Mass Index) 20.2 kg/m2 O2 % BldC Oximetry 100 % [place] Body Weight 100 lb Results Test Acquired Date Facility Test Result H/L Range N ote CBC W/Diff 07/26/2023 [facility] [address] [place] [address] [phone] WBC 10.1 10^3/M3 High 3.1-9.2 RBC 4.49 10^6/M3 3.70-5.50 HGB 13.6 GR/DL 11.5-16.1 HCT 40.6 % 34.5-47.8 MCV 90.5 CUMICR 82.6-95.8 MCH 30.2 PICOGR 27.9-32.9 MCHC 33.4 % 32.6-35.4 RDW 13.2 % 11.4-14.6 PLT 278 10^3/M3 140-350 MPV 8.9 CUMICR 7.0-10.6 %Neut 71.6 % 40.0-75.0 %Lymph 19.6 % 17.0-45.0 %Logan 8.2 % 1.0-11.0 %Eos 0.2 % 0.0-6.0 %Baso 0.4 % 0.0-2.0 #Neut 7.2 10^3/M3 1.5-8.0 #Lymph 2.0 10^3/M3 0.8-3.2 #Logan 0.8 10^3/M3 0.0-0.8 #Eos 0.0 10^3/m3 0.0-0.4 #Baso 0.0 10^3/m3 0.0-0.2 BMP 07/26/2023 [facility] [address] [place] [address] [phone] Glucose 135 mg/dL High 70-110 BUN 15 mg/dL 6-25 Creatinine 0.8 mg/dL 0.5-1.2 Sodium 140 mEq/L 135-145 Potassium 3.6 mEq/L 3.5-5.0 Chloride 103 mEq/L 95-107 Co-2 28 mEq/L 24-31 Calcium 9.5 mg/dL 8.5-10.6 GFR 81 ML/MIN/1.73SQM >60 Amylase & Lipase 07/26/2023 [facility] [address] [place] [address] [phone] Amylase 32 U/L Low 75-125 Lipase 17 U/L Low 20-55 Hepatic 07/26/2023 [facility] [address] [place] [address] [phone] Alk Phos 50 IU/L 43-122 Alt(SGPT) 10 IU/L 10-40 Ast(Sgot) 11 IU/L 3-42 T.Bilirubin 0.9 mg/dL 0.1-1.3 D.Bilirubin 0.2 mg/dL 0.0-0.3 Tot.Protein 6.9 g/dL 5.8-8.0 Albumin 4.6 g/dL 3.0-5.2 Lipid 07/26/2023 [facility] [address] [place] [address] [phone] Cholesterol 177 mg/dL 0-200 1 Triglyceride 59 mg/dL 0-150 2 HDLD 73 mg/dL See Comment 3 Measured LDL 91 mg/dL 0-130 4 Calc VLDL 11.8 mg/dL See Comment 5 Chol/HDL 2.4 RATIO See Comment 6 Non-HDL 104 mg/dL See Comment 7 TSH With Reflex 07/26/2023 [facility] [address] [place] [address] [phone] TSH (Reflex) 0.96 uIU/mL 0.50-6.00 Laboratory test finding 07/26/2023 [facility] [address] [place] [address] [phone] Vitd-25Oh 24 ng/mL Low 30-100 1 CHOLESTEROL Less than 200mg/dl Low risk 201-239 mg/dl Borderline risk Equal to or greater 240mg/dl High risk 2 TRIGLYCERIDES Less than 150mg/dl Normal 150-199mg/dl Borderline 200-499mg/dl High Greater than 500mg/dl Very High 3 HDL <40mg/dl Elevated Risk 41-59mg/dl Risk >=60mg/dl Least Risk 4 LDL <100mg/dl Optimal 100-129mg/dl Near Optimal 130-159mg/dl Borderline High 160-189mg/dl High >=190 Very High 5 VLDL Less than 30mg/dl Normal 6 CHOL/HDL <4.0 Optimal 4.0-5.0 Borderline >6.0 High Risk 7 NON-HDL 30mg/dl higher than LDL Target Procedures Date Code Description Status 08/15/2023 [id number] Mammogram Completed 07/26/2023 45300 Venipuncture Routine Complet ed 07/26/2023 1101F PT SCR Future Fall Risk, No Fall Or 1 W/Out Injury Completed Medical Devices Description No Information Available Encounters Type Date Location Provider Dx Diagnosis Office Visit 09/26/2023 2:00p Latia rt FELICIANO Sheehan F33.0 Major depressive disorder, recurrent, mild J43.2 Centrilobular emphys rob F41.1 Generalized anxiety disorder Office Visit 07/26/2023 9:30a FELICIANO Granados Z00.00 Encntr for general adult medical exam w/o abnormal findings J43.2 Centrilobular emphys rob J32.0 Chronic maxillary si nusitis L20.9 Atopic dermatitis, u nspecified G43.009 Migraine w/o aura, n ot intractable, w/o status migrainosus Z13.220 Encounter for screen ing for lipoid disorders E55.9 Vitamin D deficiency , unspecified F33.0 Major depressive dis order, recurrent, mild M79.642 Pain in left hand Office Visit 06/11/2023 3:45p Moose Del Toro PA-C H00.016 Hordeolum externum left eye, 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 Assessments Date Code Description Provider 09/26/2023 F33.0 Major depressive disorder, r ecurrent, mild Natalie Balderas, FELICIANO 09/26/2023 J43.2 Centrilobular emphysema Jairoleandra walton Sherrie, FELICIANO 09/26/2023 F41.1 Generalized anxiety disorder Natalie Balderas, FELICIANO 07/26/2023 Z00.00 Encounter for ge neral adult medical examination without abnormal findings Natalie Balderas, FELICIANO 07/26/2023 J43.2 Centrilobular emphysema Jairoleandra walton Sherrie, CLIENT TECHNICAL SPECIALIST 07/26/2023 J32.0 Chronic maxillary sinusitis Natalie Balderas, FELICIANO 07/26/2023 L20.9 Atopic dermatitis, unspecifi ed Natalie Balderas, FELICIANO 07/26/2023 G43.009 Migraine without aura, not intractable, without status migrainosus Natalie Balderas, FELICIANO 07/26/2023 Z13.220 Encounter for screening for lipoid disorders FELICIANO Sheehan 07/26/2023 E55.9 Vitamin D deficiency, unspec ified Natalie Balderas, FELICIANO 07/26/2023 F33.0 Major depressive disorder, r ecurrent, mild Natalie Balderas, FELICIANO 07/26/2023 M79.642 Pain in left hand Natalie enciso, FELICIANO 06/11/2023 H00.016 Hordeolum gas reverser um left eye, 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 Ludy Del Toro PA-C Plan of Treatment Future Appointment(s):* 07/30/2024 3:30 pm - FELICIANO Sheehan at [facility] 09/26/2023 - FELICIANO Sheehan* F33.0 Major depressive disorder, recurrent, mild* Comments:* Seems to be doing well since leaving her . She is living with her son and her anxiety and depression are mostly controlled. Continue with duloxetine and prn Ativan Aware of side effects, addictive properties and potential for abuse. Return as scheduled and prn * J43.2 Centrilobular emphysema* Comments:* Asymptomatic. Quit smoking! * F41.1 Generalized anxiety disorder* Comments:* See above * All* New Medication:* Trazodone HCL 50 mg - 1/2-1 tab by mouth as needed at bedtime * Primidone 50 mg - 1 tab at bedtime (neurology) * Aimovig 140 mg/ml - (neurology) * Follow up:* CPX in 6 mos Functional Status Description No Information Available Mental Status Description No Information Available Referrals Refer to Reason for Referral Status Appt Yakov Flores MD Closed 09/05/19 24 [facility]astics/[facility] [address] [facility] [phone]
--- OUTSIDE RECORDS SUMMARY | 2024-01-26 11:33 | External Medical Summary | Summary of Care ---
Author Name Unknown Organization [facility] Address [address] [place] [address] Phone [phone] Care Team Providers Care Medicaid Plan Compliance Director Name Role Phone Wilfred Shipman MD Primary Care Provider Reason for Visit * Reason Onset Date Comments Films 08/03/2023 Encounter Details Date Type Department Care Team (Late st Contact Info) Description 08/03/2023 Telephone Radiology Film File [address], [place] [id number] Nico Lemos PA-C [address] LEONELA Banks [id number] Films Allergies Active Allergy Reactions Criticality Noted Date Comments Doxepin Hives 06/04/2018 Mushroom Extract Complex Hives High 06/04/2018 Other reaction(s): Throat Swelling Other reaction(s): Throat Swelling documented as of this encounter (statuses as of 08/03/2023) Medications Medication Sig Dispensed Refills Start Date End Date Status aspirin enteric coated 81 MG TBEC Take by mouth. 0 05/11/2015 Act dariel promethazine (PHENERGAN) 12.5 MG Tablet 0 12/19/2019 Active tiZANidine (ZANAFLEX) 4 MG Tablet 0 12/03/2019 Active Emgality 120 MG/ML Subcutaneous Solution Auto-injector 0 10/14/2020 Active Fluticasone Propionate 50 MCG/ACT Nasal Suspension Administer 2 Sprays into each nostril daily. 9.9 mL 0 09/17/2021 Active Additional Information Patient not taking.Informant: At Discharge, Reported on 07/23/2023 Azelastine HCl 0.1 % Nasal Solution (Astelin) Administer 2 Sprays into nostril in the morning and 2 Sprays before bedtime. 30 mL 12 09/04/2022 Active Additional Information Patient not taking.Reported on 07/23/2023 DULoxetine HCl 20 MG Oral Capsule Delayed Release Particles (duloxetine) Take 1 Capsule by mouth at bedtime. 0 03/14/2023 Active documented as of this encounter (statuses as of 08/03/2023) Active Problems No known active problems documented as of this encounter (statuses as of 08/03/2023) Social History Tobacco Use Types Packs/Day Years Used Date Smoking Tobacco: Every Day Cigarettes 0.5 Smokeless Tobacco: Never Alcohol Use Standard Drinks/Week Comments Not Currently 0 (1 standard drink = 0.6 oz pur e alcohol) Sex and Gender Information Value Date Recorded Sex Assigned at Not on file Gender Identity Not on file Sexual Orientation Not on file Job Start Date Occupation Industry Not on file Not on file Not on file documented as of this encounter Miscellaneous Notes * Telephone Encounter - Senait Zhang OSA - 08/03/2023 12:21 PM EST Received call from [facility] [place] requesting 07-23-23 hand xray images be pushed to their system. [place] Authorization to Release on file. Images pushed to [facility] [place] External PACs Connection Associated report(s) not needed. documented in this encounter Plan of Treatment Health Maintenance Due Date Last Done Comments Hepatitis B (1 of 3 - 3-dose series) 1974 COVID-19 Vaccine (#1) 1974 Pneumococcal Vaccine: Pediatrics (0 to 5 Years) and At-Risk Patients (6 to 64 Years) (1 - PCV) 1980 Depression Screening 1986 HIV Screening 1989 Hepatitis C Screening 1992 DTaP,Tdap,and Td Vaccines (1 - Tdap) 1993 Pap Smear 1995 Cervical Cancer Screening 2004 HPV/Co-Test 2004 Cologuard 2019 Colonoscopy 2019 Colorectal Cancer Screening 2019 Fecal Occult Blood Test 2019 Sigmoidoscopy 2019 Mammogram 02/08/2023 02/08/2022, 01/26/2021, 09/20/2018 Influenza Vaccine (FLU shot) (#1) 2023 06/18/2019, 10/17/2013, 05/27/2009 Lipid Panel 07/26/2028 07/26/2023, 01/11/2022 GARDASIL-HPV IMMUNIZATION SERIES Aged Out No longer eligible b ased on patient's age to complete this topic MENINGOCOCCAL (MENACTRA/MENVEO) Aged Out No longer eligible b ased on patient's age to complete this topic documented as of this encounter Medical Devices Not on filedocumented as of this encounter Care Teams Medicaid Plan Compliance Director Relationship Specialty Start Date End Date Wilfred Shipman MD [address] [place] [address] [place] [id number] PCP - General Internal Medicine 06/04/18 documented as of this encounter
--- OUTSIDE RECORDS SUMMARY | 2024-01-26 11:33 | External Medical Summary | Continuity of Care Document ---
Author Name Unknown Organization [facility] Address [address] [place] [id number] Phone [phone] Problems Active Problems Provider Date Depressive disorder [...] SIG Qnty Indications Ordering Provider Date Trazodone [id number] Tablets 1/2-1 tab by mouth as needed at bedtime 30tabs Wilfred Shipman MD 09/26/2023 Rnylhauwv04um Tablets 1 tab at bedtime (neurology) Wilfred Shipman MD 09/26/2023 Klgcpqx930zi/ml Solution Auto-Inject (neurology) Wilfred Shipman MD 09/26/2023 Vitamin D (Ergocalciferol)74681 Unit Capsules take 1 capsule by mouth once weekly for 3 months 12caps Wilfred Shipman MD 07/27/2023 Dwoetwg116mb Tablets 1 tab po at the onset of a migraine, repeat x 1 in a 24 hour period if needed 14tabs G43.009 Wilfred Shipman MD 10/19/2022 Ativan0.5mg Tablets 1/2 tab -1 tab by mouth as needed anxiety 30tabs Wilfred Shipman MD 07/07/2022 Aspirin Adult Low Xbkp89px Tablets DR 1 by mouth every day Wilfred Shipman MD 05/11/[address] Part 1 cap po daily 90caps Wilfred Shipman MD History Medications [id number] Tablets 1 by mouth tw ice a day x 10 days 20tabs Wilfred Shipman MD 08/10/2023 - 08/20/2023 Vqcijawpuc440xe Tablets 1 tab by mouth three times a day x 10 days 30tabs Wilfred Shipman MD 06/11/2023 - 07/26/2023 Gentamicin Sulfate0.1% Ointment apply to the eye lid twice a day x 5days 15gm Wilfred Shipman MD 06/11/2023 - 06/11/2023 Iqlugzkwrhyl7gk/GM Ointment apply to affected eyes up to [...] Balderas, FELICIANO 06/11/2020 Injection Kenalog 10 MG [facility] [id number] Natalie Balderas, FELICIANO 0 12/03/2019 Injection Promethazine Hcl 5 0 MGInjection Natalie Balderas, FELICIANO 0 Injection Promethazine Hcl 5 0 MGInjection Natalie Balderas, TICKER WIRER 0 Injection Ketorolac Trometha mine Per 15 mg/.5cc (Toradol)Injection Natalie Balderas, FELICIANO 10/16/2019 Injection Promethazine Hcl 5 0 MGInjection Natalie Balderas, FELICIANO 0 Injection Ketorolac Trometha mine Per 15 mg/.5cc (Toradol)Injection FELICIANO Sheehan 08/29/2019 Injection Methylprednisolone Acetate 40 MGInjection Natalie Balderas, FELICIANO 12/12/2018 Injection Ketorolac Trometha mine Per 15 mg/.5cc (Toradol)Injection FELICIANO Sheehan 06/28/2015 Immunizations CPT Code Status Date Vaccine Lot # [id number] Given 06/18/2019 Influenza Virus Vaccine, Quad, Preserv Free, 6Mon And Up [id number] 51166 Given 05/26/2016 Influenza Virus Vaccine, Quadrivalent, Im Use [id number] 41412 Given 06/08/2015 Influenza Virus Vaccine, Quadrivalent, Im Use [id number] 76065 Given 06/25/2014 Influenza Virus Vaccine, Quadrivalent, Im Use 81142 Given 10/17/2013 Influenza Vac, Split 3 Yr s And Up [id number] 56365 Given 05/27/2009 Influenza Vac, Split 3 Yr s And Up [id number] Refused 12/08/2021 Influenza Vacci ne Quadrivalent Preser/Antibiotic Free [place] Use 48392 Refused 10/21/2020 Moderna Sars-Co v-2 (Cov-19) vacc,100 mcg/ 0.5 mL [id number] Doc Only [id number] Refused 05/14/2020 Influenza Virus Vaccine, Quad, Preserv Free, 6Mon And Up 87929 Refused 02/10/2019 Pneumococcal Vaccine/Pneu movax 23 [id number] Refused 02/10/2019 Tdap (Tetanus, diphtheria & acel. pertussis) Adacel or Boostrix 14813 Refused 02/10/2019 Influenza Virus Vaccine, Quadrivalent, Im Use [id number] Refused 06/06/2017 Influenza Virus Vaccine, Quadrivalent, Im Use 14467 Refused 09/28/2016 Tdap (Tetanus, diphtheria & acel. pertussis) Adacel or Boostrix Vital Signs Date Vital Result Comment 09/26/2023 1:59pm BP Systolic 126 mmHg BP Diastolic 72 mmHg Heart Rate 81 /min Weight 101.38 lb Weight 45.984 kg Height 60 inches 5'0" BMI (Body Mass Index) 19.8 kg/m2 O2 % BldC Oximetry 97 % [place] Body Weight 100 lb 07/26/2023 9:33am BP Systolic 120 mmHg BP Diastolic 72 mmHg Heart Rate 91 /min Weight 103.38 lb Weight 46.891 kg Height 60 inches 5'0" BMI (Body Mass Index) 20.2 kg/m2 O2 % BldC Oximetry 100 % [place] Body Weight 100 lb Results Test Acquired Date Facility Test Result H/L Range N ote CBC W/Diff 07/26/2023 [facility] [address] [place] [address] [phone] WBC 10.1 10^3/M3 High 3.1-9.2 RBC 4.49 10^6/M3 3.70-5.50 HGB 13.6 GR/DL 11.5-16.1 HCT 40.6 % 34.5-47.8 MCV 90.5 CUMICR 82.6-95.8 MCH 30.2 PICOGR 27.9-32.9 MCHC 33.4 % 32.6-35.4 RDW 13.2 % 11.4-14.6 PLT 278 10^3/M3 140-350 MPV 8.9 CUMICR 7.0-10.6 %Neut 71.6 % 40.0-75.0 %Lymph 19.6 % 17.0-45.0 %Curry 8.2 % 1.0-11.0 %Eos 0.2 % 0.0-6.0 %Baso 0.4 % 0.0-2.0 #Neut 7.2 10^3/M3 1.5-8.0 #Lymph 2.0 10^3/M3 0.8-3.2 #Curry 0.8 10^3/M3 0.0-0.8 #Eos 0.0 10^3/m3 0.0-0.4 #Baso 0.0 10^3/m3 0.0-0.2 BMP 07/26/2023 [facility] [address] [place] [address] [phone] Glucose 135 mg/dL High 70-110 BUN 15 mg/dL 6-25 Creatinine 0.8 mg/dL 0.5-1.2 Sodium 140 mEq/L 135-145 Potassium 3.6 mEq/L 3.5-5.0 Chloride 103 mEq/L 95-107 Co-2 28 mEq/L 24-31 Calcium 9.5 mg/dL 8.5-10.6 GFR 81 ML/MIN/1.73SQM >60 Amylase & Lipase 07/26/2023 [facility] [address] [place] [address] [phone] Amylase 32 U/L Low 75-125 Lipase 17 U/L Low 20-55 Hepatic 07/26/2023 [facility] [address] [place] [address] [phone] Alk Phos 50 IU/L 43-122 Alt(SGPT) 10 IU/L 10-40 Ast(Sgot) 11 IU/L 3-42 T.Bilirubin 0.9 mg/dL 0.1-1.3 D.Bilirubin 0.2 mg/dL 0.0-0.3 Tot.Protein 6.9 g/dL 5.8-8.0 Albumin 4.6 g/dL 3.0-5.2 Lipid 07/26/2023 [facility] [address] [place] [address] [phone] Cholesterol 177 mg/dL 0-200 1 Triglyceride 59 mg/dL 0-150 2 HDLD 73 mg/dL See Comment 3 Measured LDL 91 mg/dL 0-130 4 Calc VLDL 11.8 mg/dL See Comment 5 Chol/HDL 2.4 RATIO See Comment 6 Non-HDL 104 mg/dL See Comment 7 TSH With Reflex 07/26/2023 [facility] [address] [place] [address] [phone] TSH (Reflex) 0.96 uIU/mL 0.50-6.00 Laboratory test finding 07/26/2023 [facility] [address] [place] [address] [phone] Vitd-25Oh 24 ng/mL Low 30-100 1 CHOLESTEROL [...] Target Procedures Date Code Description Status 08/15/2023 [id number] Mammogram Completed 07/26/2023 68730 Venipuncture Routine Complet ed 07/26/2023 1101F PT SCR Future Fall Risk, No Fall Or 1 W/Out Injury Completed Medical Devices Description No Information Available Encounters Type Date Location Provider Dx Diagnosis Office Visit 09/26/2023 2:00p FELICIANO Leo F33.0 Major depressive disorder, recurrent, mild F41.1 Generalized anxiety disorder J43.2 Centrilobular emphys rob Office Visit 07/26/2023 9:30a FELICIANO Granados Z00.00 [...] Major depressive disorder, r ecurrent, mild Natalie Sherrie, TICKER WIRER 09/26/2023 F41.1 Generalized anxiety disorder Natalie Sherrie, TICKER WIRER 09/26/2023 J43.2 Centrilobular emphysema Kirleandra walton Sherrie, TICKER WIRER 07/26/2023 Z00.00 Encounter for ge neral adult medical examination without abnormal findings Natalie Balderas, FELICIANO 07/26/2023 J43.2 Centrilobular emphysema Kirs anton Tezb, TICKER WIRER 07/26/2023 J32.0 Chronic maxillary sinusitis Natalie Sherrie, TICKER WIRER 07/26/2023 L20.9 Atopic dermatitis, unspecifi ed Natalie Balderas, TICKER WIRER 07/26/2023 G43.009 Migraine without aura, not intractable, without status migrainosus Natalie Balderas, TICKER WIRER 07/26/2023 Z13.220 Encounter for screening for lipoid disorders Natalie Balderas, FELICIANO 07/26/2023 E55.9 Vitamin D deficiency, unspec ified Natalie Balderas, TICKER WIRER 07/26/2023 F33.0 Major depressive disorder, r ecurrent, mild Natalie Balderas, TICKER WIRER 07/26/2023 M79.642 Pain in left hand Natalie enciso, TICKER WIRER 06/11/2023 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, 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 Ludy Del Toro PA-C Plan of Treatment Future Appointment(s):* 07/30/2024 3:30 pm - FELICIANO Sheehan at [facility] 09/26/2023 - FELICIANO Sheehan* F33.0 Major depressive disorder, recurrent, mild * F41.1 Generalized anxiety disorder * J43.2 Centrilobular emphysema * All* New Medication:* Trazodone HCL 50 mg - 1/2-1 tab by mouth as needed at bedtime * Primidone 50 mg - 1 tab at bedtime (neurology) * Aimovig 140 mg/ml - (neurology) * Follow up:* CPX in 6 mos Functional Status Description No Information Available Mental Status Description No Information Available Referrals Refer to Reason for Referral Status Appt Dev e Yakov Falcon MD Closed 09/05/19 24 Plastics/Reconstruction [address] [facility] [phone]
[2024-01-26] MEDS: NITROGLYCERIN/D5W 100MCG/ML 250 ML IV SCH ×2 (12:10→12:52)
--- NOTE | 2024-01-26 12:53 | Critical Care Consultation ---
Date of Consultation January 26, 2024 Assessment & Plan (1) Coronary artery vasospasm: (2) ST elevation: (3) Second degree AV block, Mobitz type II: (4) Syncope: (5) Chest pain: (6) Pulmonary emphysema: Plan 48-year-old female with a history of tobacco abuse, hypertension, anxiety and essential tremor who presents to the hospital with chest pain. Initial cardiac catheterization earlier this hospitalization without any significant occlusive disease seen. Patient has had ongoing angina and will be taken back to the Information Technology Officer today for further evaluation. Nitroglycerin and heparin infusion started by the primary precinct police sergeant. Patient will be monitored closely in the ICU on telemetry with frequent hemodynamic monitoring. Will await interventional cardiology input and follow-up results from the left heart cath. Avoid AV morelia blocking agents in the context of 2-1 AV block. Continue aspirin. Defer further cardiac medications including additional antiplatelets and statins to the cardiology service. Titrate nitroglycerin infusion to help prevent further coronary vasospasm. Lastly patient with small subcentimeter pulmonary nodules and pulmonary for edema. Consider follow-up CT chest in 1 year. Strongly encourage complete smoking cessation. Consider outpatient PFTs. ICU team will continue to follow along with you as long as she remains under ICU status. Thank you for the consult. CRITICAL CARE TIME - I have personally spent 33 minutes of critical care time in the direct management of this patient. This is a life/limb threatening event. This includes time spent evaluating patient, direct bedside care, chart review, placing orders, interpretation of diagnostic studies, discussion with consultants, patient, and family members, as well as other required patient management activities. This time is exclusive of all separately billable procedures, and teaching time and separate from and in addition to any other critical care service time. History of Present Illness Reason for Consultation: Ongoing chest pain and concern for unstable angina Attending Physician: Alondra Issa MD History of Present Illness Patient was admitted to the hospital 01/24/2024 with multiple episodes of syncope and chest pain. She is being transferred down to the ICU due to ongoing chest pain and ST elevations noted on EKG. I had a discussions with the patient's primary precinct police sergeant, Dr. Jalloh who then discussed with the grinder set up operator universal, Dr. Rodriguez who is going to take the patient back to the Information Technology Officer. She had a cardiac catheterization 01/25/2024 which revealed mild nonocclusive disease of the RCA and some catheter induced left main vasospasm. She is currently hemodynamically stable. She has had episodes of 2-1 AV morelia block, but has remained stable otherwise. She is placed on a nitroglycerin infusion and heparin infusion by the primary precinct police sergeant. She is currently on a dextrose/lactated Ringer's infusion per the hospitalist service. She is also receiving duloxetine, aspirin, primidone for essential tremor, amlodipine for hypertension. Echo from 01/25/2024 revealed an EF of 55 to 60%. Grade 1 diastolic dysfunction. Moderate to severe mitral sufficiency noted with an eccentric posterior directed jet. Chest CTA on admission personally reviewed by me reveals a 6 mm nodule in the right lower lobe and a 3 mm nodule in the right middle lobe. No evidence of pulmonary embolism. Mild emphysema noted. Brain imaging was also performed due to concerns of stroke and syncope. No intracranial lesions are identified. Scattered small white matter T2 hyperintense foci were noted. 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 Allergies Allergy/AdvReac Type Severity Reaction Status Date / Time mushroom Allergy Severe THROAT Verified 01/24/24 17:42 SWELLS/HIVES doxepin [From [place]] Allergy Intermediate Hives Verified 01/24/24 17:42 Home Medications Medication Instructions Recorded Confirmed Type aspirin 81 mg tablet,delayed 81 mg PO DAILY 01/24/24 01/24/24 History release duloxetine 20 mg capsule,delayed 20 mg PO DAILY 01/24/24 01/24/24 History release ergocalciferol (vitamin D2) 1,250 1,250 mcg PO WK 01/24/24 01/24/24 History mcg (50,000 unit) capsule (Vitamin D2) multivitamin with minerals-folic 1 tab PO DAILY 01/24/24 01/24/24 History acid 200 mcg chewable tablet (Multivitamin Gummies) primidone 50 mg tablet 25 mg PO DAILY 01/24/24 01/24/24 History Patient History Social History Smoking Status: Former smoker Tobacco Type: Cigarettes Smoking End Date: December 2022; Do You Dip or Chew Tobacco: No; Hx Alcohol Use: No Hx Substance Use: No Preferred Language: Slovak Communication Ability: Effective Combination Machine Tool Operator Required: No Beliefs That Will Affect Care: None Current Living Situation: Family Current Living Situation Comment: with son Feels Safe at Home: Yes Safety Concerns: Feels Safe At This Time Assistive Devices: None Review of Systems Review of Systems: All systems reviewed & are unremarkable except as noted in HPI & below Physical Exam Physical Exam: Constitutional: Patient appears to be of their stated age. Patient is in no apparent distress. Patient is well-developed. Eyes: Pupils are equal round and reactive to light. Conjunctivae are normal. Anicteric sclera. Ears nose, mouth and throat: No perioral cyanosis. Neck: Trachea is midline. Visual inspection is normal. Respiratory: Clear to auscultation bilaterally. No use of accessory muscles. No significant clubbing noted. Cardiovascular: Regular rate and rhythm. No murmurs. No edema. Gastrointestinal: Normal bowel sounds, soft, nontender and nondistended. No hepatosplenomegaly noted. Musculoskeletal: No cyanosis. Patient is able to move all extremities. Strength is 5 out of 5 in the upper and lower extremities. Skin: No rashes, warm dry and intact. Neurologic: No obvious focal neurological deficits seen. Psychiatric: Alert and oriented x3 with a euthymic affect. Results & Data Results & Data Vital Signs (Past 12 Hours) Vital Signs Temp Pulse Resp BP Pulse Ox O2 Del Method 01/26/24 11:00 36.8 C 69 16 109/64 97 Room Air 01/26/24 08:00 Room Air 01/26/24 07:58 36.4 C L 68 16 126/83 99 Room Air 01/26/24 02:30 36.5 C 60 18 108/72 97 Room Air Coding Level of Care Code 21927 CRITICAL CARE 1ST 30-74M Diagnoses Coronary artery vasospasm I20.1 ST elevation R94.31 Second degree AV block, Mobitz type II I44.1 Syncope R55 Syncope type: unspecified Chest pain R07.9 Chest pain type: unspecified Pulmonary emphysema J43.9 Time Spent (min) 33 (4) Syncope Syncope type: unspecified Qualified Code(s): R55 - Syncope and collapse (5) Chest pain Chest pain type: unspecified Qualified Code(s): R07.9 - Chest pain, unspecified
--- NOTE | 2024-01-26 13:14 | Pre Anesthesia Assessment ---
Date of Service January 26, 2024 Pre Sedation Assessment Vital Signs Temp Pulse Pulse Resp BP BP Pulse Ox 01/26/24 12:45 76 14 134/85 98 01/26/24 12:30 81 15 139/75 98 01/26/24 12:03 86 22 140/77 100 01/26/24 11:00 98.2 F 69 16 109/64 97 01/26/24 08:00 01/26/24 07:58 97.5 F L 68 16 126/83 99 01/26/24 02:30 97.7 F 60 18 108/72 97 01/25/24 22:18 97.7 F 70 18 110/74 97 01/25/24 21:55 78 01/25/24 21:28 97.7 F 69 18 131/80 96 01/25/24 21:14 97.9 F 73 18 138/87 99 01/25/24 21:00 01/25/24 19:02 97.5 F L 80 17 135/84 100 01/25/24 15:35 98.1 F 80 16 134/83 95 O2 Del Method 01/26/24 12:45 Room Air 01/26/24 12:30 Room Air 01/26/24 12:03 Room Air 01/26/24 11:00 Room Air 01/26/24 08:00 Room Air 01/26/24 07:58 Room Air 01/26/24 02:30 Room Air 01/25/24 22:18 Room Air 01/25/24 21:55 01/25/24 21:28 Room Air 01/25/24 21:14 Room Air 01/25/24 21:00 Room Air 01/25/24 19:02 Room Air 01/25/24 15:35 Room Air Cardiovascular + regular rate Respiratory + respiratory effort normal Pre-Sedation Airway Assessment Smoking Status: Former smoker Hx Sleep Apnea: No Hx Difficult Intubation: No Short, Thick Neck: No Thyromental Distance: > or= 3.5 Finger Breadths Oral Cavity: + WNL Mallampati Class: III ASA: ASA3 NPO Status Date of Last Intake of Fluids: 01/25/24 Time of Last Intake of Fluids: 09:00 Date of Last Intake of Solid Food: 01/17/24 Time of Last Intake of Solid Foods: 18:00 Procedure Planning Contraindications for Sedation: none Current Medications Reviewed: Yes Notes The planned sedation has been discussed with the patient. Informed Consent was obtained. I have identified the patient, determined the appropriateness of sedation and have assessed the patient immediately prior to the procedure. All medicine(s) and interventions are by my order.
[2024-01-26] MEDS: diphenhydrAMINE 50 MG/ML VIAL ONE (14:29)
[2024-01-26] MEDS: NITROGLYCERIN/D5W 100MCG/ML 20ML SYR ONE (14:30)
[2024-01-26] MEDS: MIDAZOLAM HCL 1 MG/ML 2ML VIAL ONE ×2 (14:31→14:33)
[2024-01-26] MEDS: fentaNYL citrate PF 100 MCG/2 ML VIAL ONE ×2 (14:31→14:33)
[2024-01-26] MEDS: niCARdipine HCL INJ 2.5 MG/ML 10 ML AMP ONE (14:31)
[2024-01-26] MEDS: OPTIRAY 350 ONE (14:33)
[2024-01-26] MEDS: IODIXANOL (VISIPAQUE) 320 MG/ML 100ML IV ONE (14:33)
[2024-01-26] MEDS: HEPARIN (PORCINE) 1000 UNIT/ML 10 ML (CATH LAB USE ONLY) ONE (14:35)
[2024-01-26] MEDS: ASPIRIN 81 MG CHEW ONE (14:40)
[2024-01-26] MEDS: CLOPIDOGREL BISULFATE 300 MG TAB ONE (14:40)
--- NOTE | 2024-01-26 14:48 | Post Anesthesia Assessment ---
Date of Service January 26, 2024 Post Sedation Assessment Vital Signs Temp Pulse Pulse Resp BP BP Pulse Ox 01/26/24 12:45 76 14 134/85 98 01/26/24 12:30 81 15 139/75 98 01/26/24 12:03 86 22 140/77 100 01/26/24 11:00 98.2 F 69 16 109/64 97 01/26/24 08:00 01/26/24 07:58 97.5 F L 68 16 126/83 99 01/26/24 02:30 97.7 F 60 18 108/72 97 01/25/24 22:18 97.7 F 70 18 110/74 97 01/25/24 21:55 78 01/25/24 21:28 97.7 F 69 18 131/80 96 01/25/24 21:14 97.9 F 73 18 138/87 99 01/25/24 21:00 01/25/24 19:02 97.5 F L 80 17 135/84 100 01/25/24 15:35 98.1 F 80 16 134/83 95 O2 Del Method 01/26/24 12:45 Room Air 01/26/24 12:30 Room Air 01/26/24 12:03 Room Air 01/26/24 11:00 Room Air 01/26/24 08:00 Room Air 01/26/24 07:58 Room Air 01/26/24 02:30 Room Air 01/25/24 22:18 Room Air 01/25/24 21:55 01/25/24 21:28 Room Air 01/25/24 21:14 Room Air 01/25/24 21:00 Room Air 01/25/24 19:02 Room Air 01/25/24 15:35 Room Air Recovery Score Activity: Moves 4 extremities Respiration: Deep Breath/Cough Circulation: +/-20% PreAnes Value Consciousness: Fully Awake Oxygen Saturation: > 92% On Room Air Post Anesthesia Score: 10 Discharge Sedation Level of Care: Fast Track Phase II Post Sedation Plan On clinical assessment, the patient appears to have tolerated the sedation without complications. Patient is recovering as anticipated. Patient will continue to be monitored by nursing and may be discharged when sedation discharge criteria are met per below protocol. Upon Completions of procedure up to 15 minutes continue every 5 minute vital signs and the P.A.R. score; then discharge to a Phase I or Fast Track to Phase I I per the following guidelines: * Discharge Patient to appropriate Phase II area if PAR is 8 or greater or return to pre- procedure baseline. The post - procedure orders will be as directed. * If PAR score is less than 8 or not return to pre-procedure baseline then patient will follow Phase I monitoring till PAR is reached for Phase II. The Phase I may be done in procedure room or may call to secure a Phase I area. * If naloxone or flumazenil are used for reversal, hold in Phase I for continued monitoring from when last reversal dose was given for a minimum of 60 minutes or longer pending the nurse and/or physician discretion of patient condition before discharge to Phase II. Please call the Sedation Physician to re-evaluate and complete post-note for discharge to Phase II area. Do NOT discharge from procedure sedation or Phase 1 until post- sedation evaluation note is complete by procedure /sedation MD Sedation Discharge Instructions to be given to the patient at discharge to home.
--- NOTE | 2024-01-26 15:03 | Cardiac Catheterization ---
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 Cardiac Status Clinical evaluation leading to the procedure CAD Presenation: Non STEMI Anginal Classification: CCS IV Diagnostic Physicians Name: Rajendra Rodriguez MD Closure Device Recommendations: PCI without planned CABG Cardiac Cath Procedure Full Procedure Date January 26, 2024 Pre-Procedure Diagnosis Pre-Procedure Diagnosis: Acute Coronary Syndrome AUC Score AUC Score: 07 Post-Procedure Diagnosis Post-Procedure Diagnosis: Severe CAD, Successful PCI and Normal Intracardiac Pressures Procedure(s) Performed Procedure(s) Performed: Coronary Angiography, Left Heart Cath, Drug Eluting Stent, Ultrasound Guided Vascular Access and IVUS Insect Control Inspector Rajendra Rodriguez MD Bomb Technician(s) Tomasz Estimated Blood Loss Estimated Blood Loss: 20 Medication(s) Medication(s): Clopidogrel, Diphenhydramine, Fentanyl, Heparin, Lidocaine 1%, Nicardipine, Nitroglycerin and Versed Summary of Findings Indication: 48-year-old with syncope, and recurrent chest pain with transient inferior ST elevation. Underwent cardiac catheterization yesterday showing moderate mid RCA disease. Today had recurrent episode of chest pain with inferior ST elevation on ECG. Decision to reevaluate RCA and mid RCA disease. Access: 6 Fr right common femoral artery under ultrasound guidance Catheters: 3DRC guide (multiple guides tried JR4, AL-1, AL 1). Findings: See cath report from 01/25/2024 for details of left coronary artery system. Briefly no significant disease noted. RCA -dominant, large caliber, focal 60% mid stenosis. Distal vessel without significant disease. Medium RPDA without disease. LVEDP 10-15 IVUS of RCA Copper Plate Lithographer 50 wire placed into distal RCA 6 Fr guideliner placed to mid RCA Moe IVUS catheter placed to distal RCA. Pullback revealed heterogeneous focal mid RCA atherosclerotic plaque with scattered calcification (calculated stenosis 70 to 75%). With recurrent symptoms decision made to proceed with PCI -- PCI -- Antithrombotic therapy: Heparin, clopidogrel Procedure: Pre-procedure flow HERMAN 3 IVUS catheter removed Mid RCA stented with 3.5 x 18 mm [place] drug-eluting stent Stent post-dilated with 4.0 noncompliant balloon Repeat IVUS showed well-expanded, well apposed stent with no apparent edge complications. IC vasodilators administered for spasm Post procedure HERMAN 3 flow, stent well expanded with no residual stenosis and no apparent cardiac complications. Arterial Closure: TR Summary: 1. Severe single vessel coronary artery disease -70% mid RCA stenosis by IVUS 2. Normal intracardiac filling pressure 3. Successful PCI of mid RCA with single drug-eluting stent (3.5 x 18 mm [place]; postdilated with 4.0 NC). 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 Any exceptions are noted below. [facility] Card Cath Procedure Codes Cardiac Catheterization Procedure 1: Cardiovascular Cath Procedures: 11250 Left Heart Cath (+/-LV) Therapeutic Services & Ancillary Procedure 1: Cardiovascular Tx and Anc Procedures: 63541 IV Ultrasound (Coronary or Graft) Procedure 2: Cardiovascular Tx and Anc Procedures: 79368 Ultrasonic Guidance Vascular Access Moderate Sedation Procedure 1: Sedation/Anesthesia: 38013 Mod Sedation by the same physician;Init15 Min Child Age 5 & Up Procedure 2: Sedation/Anesthesia: 39835 Mod Sedation by the same physician; Ea [id number] Minutes Stenting Procedure 1: Cardiovascular Stent Procedures: 67886 Perc transcatheter placement of i ntracoronary stent(s), with ang PG Care Time/CCT Total # of Minutes Spent Total Time Spent with Patient: Total time spent is greater than 50% in coordination of care (as documented) at patient's floor/unit and/or counseling patient:
[2024-01-26] MEDS ORDERED: SODIUM CHLORIDE 0.9% 500 ML IV SCH (15:15)
[2024-01-26] MEDS: ATROPINE SULFATE 0.1 MG/ML 10ML SYR IV ONE ×2 (15:33→19:58)
[2024-01-26] MEDS: SODIUM CHLORIDE 0.9% 1,000 ML IV ONE (15:33)
[2024-01-26] MEDS: ATROPINE SULFATE 0.1 MG/ML 10ML SYR IV STA (15:33)
[2024-01-26] MEDS: PLASMA-LYTE A 1,000 ML IV SCH (15:49)
[2024-01-26] MEDS: FAMOTIDINE 20MG IV PUSH 20 MG/5 ML SYR IV STA (15:52)
[2024-01-26] MEDS: PANTOprazole 40 MG TAB PO SCH (15:54)
[2024-01-26] MEDS: SODIUM CHLORIDE 0.9% 1,000 ML IV SCH (16:45)
[2024-01-26] MEDS: CALCIUM CARBONATE 500 MG CHEWABLE TAB PO STA (16:54)
[2024-01-26 20:45] LABS: Base Excess VBG 1.2 mEq/L; HCO3 VBG 27 mmol/L; Oxygen Saturation VBG 69.5 %; PCO2 VBG 44 mmHg (38-50); PO2 VBG 40 mmHg; pH VBG 7.39 (7.36-7.41)
[2024-01-26 21:01] LABS: Basophils # (auto) 0.05 K/uL (0.00-0.20); Basophils % (auto) 0.5 %; Eosinophils # (auto) 0.09 K/uL (0.00-0.50); Hematocrit (blood only) 34.6 % (37.0-47.0); Hemoglobin 11.7 g/dl (12.0-16.0); Immature Granulocytes # (auto) 0.04 K/uL (0.01-0.20); Immature Granulocytes % (auto) 0.4 %; Lymphocytes # (auto) 2.26 K/uL (1.20-3.40); Lymphocytes % (auto) 24.8 %; Mean Corpuscular Hemoglobin 30.2 pg (25.0-34.0); Mean Corpuscular Hgb Conc 33.8 g/dL (32.0-36.0); Mean Corpuscular Volume 89.2 fL (80.0-100.0); Monocytes # (auto) 0.68 K/uL (0.11-0.59); Monocytes % (auto) 7.5 %; Neutrophils % (auto) 65.8 %; Platelet Count 274 K/uL (130-400); RDW Coefficient of Variation 12.7 % (11.5-14.5); RDW Standard Deviation 41.8 fL (36.4-46.3); Red Blood Count 3.88 M/uL (4.20-5.40); White Blood Count 9.12 K/ul (4.8-10.8)
[2024-01-26 21:04] LABS: Albumin Globulin Ratio 1.7 (0.9-2); Albumin Level 3.5 gm/dl (3.4-5.0); BUN Creatinine Ratio 9.7 (10-20); Bilirubin,Total 0.6 mg/dl (0.2-1.0); Calcium 8.1 mg/dl (8.6-10.3); Creatinine Clr Calc Pharmacy 67.9 ml/min; Est GFR (Non-African American) 98.3 ml/min; Globulin 2.1 gm/dl (2.5-4.0); Magnesium 1.8 mg/dl (1.7-2.4); Potassium 3.9 mmol/L (3.5-5.1); Total Protein 5.6 gm/dl (6.0-8.3)
[2024-01-26] MEDS: NOREPINEPHRINE/D5W 4 MG/250 ML IV ONE (21:12)
[2024-01-26 21:14] LABS: Prothrombin Time 10.7 Seconds (9.0-12.0)
[2024-01-26 21:22] LABS: Troponin I High Sensitivity 104.1 pg/ml (0-14)
[2024-01-26] MEDS: MAGNESIUM SULFATE / D5W 1 GM/100 ML BAG IV ONE (21:44)
[2024-01-26] MEDS: CALCIUM GLUCONATE 1,000 MG/60 ML BAG IV STA (21:44)
[2024-01-26] MEDS: POTASSIUM CHLORIDE CRTAB 20 MEQ TABCR PO STA (21:44)
--- NOTE | 2024-01-26 21:46 | Communication Note ---
Date of Service: January 26, 2024 I was notified by the patient's primary RN that she had a syncopal episode, with bradycardia and hypotension. She had received 0.5 mg of atropine and heart rate improved but she remained hypotensive temporarily. 1 L crystalloid bolus was administered and she was started on Levophed drip. Upon evaluation the patient was tired and having a hard time staying awake. Further examination revealed abdominal tenderness and distention, and initial concern for extravasation at the right groins where she had previously been accessed for heart cath. She was sent for stat CT abdomen and pelvis, and on initial review shows significant distention of the bladder. Further investigation revealed the patient has received multiple doses of atropine and 50 mg of Benadryl earlier today which may be causing urinary retention. She is unable to void on her on, and Whitlock catheter was inserted with significant amount of urine output draining. Patient now comfortable and hemodynamically stable, off vasopressor support. Lab work was unremarkable. Likely vagal response due to hyperdistended bladder. Official CT abdomen pelvis read pending and will follow-up. Will leave Whitlock catheter inserted overnight and reevaluate ability to remove once anticholinergic effects of medications have worn off. Coding Level of Care Code None
--- NOTE | 2024-01-26 23:32 | CT Scan Report ---
Exam(s): CT ABDOMEN + PELVIS Without Contrast EXAM: CT Abdomen and Pelvis Without Intravenous Contrast CLINICAL HISTORY: Reason for exam: abdominal tenderness, hypotension. TECHNIQUE: Axial computed tomography images of the abdomen and pelvis without intravenous contrast. CTDI is 8.86 mGy and DLP is 466.3 mGy-cm. Automated exposure control was utilized for the study. A dose lowering technique was utilized adhering to the principles of ALARA. COMPARISON: No relevant prior studies available. FINDINGS: Lung bases: Unremarkable. No mass. No consolidation. ABDOMEN: Liver: Unremarkable. Gallbladder and bile ducts: Unremarkable. No calcified stones. No ductal dilation. Pancreas: Unremarkable. No ductal dilation. Spleen: Unremarkable. No splenomegaly. Adrenals: Unremarkable. No mass. Kidneys and ureters: Unremarkable. No obstructing stones. No hydronephrosis. Stomach and bowel: Unremarkable. No obstruction. No mucosal thickening. PELVIS: Appendix: No findings to suggest acute appendicitis. Bladder: Unremarkable. No stones. Reproductive: Unremarkable as visualized. ABDOMEN and PELVIS: Intraperitoneal space: Unremarkable. No free air. No significant fluid collection. Bones/joints: Degenerative changes of the spine. No acute fracture. No dislocation. Soft tissues: Unremarkable. Vasculature: Atherosclerotic changes of the aorta. No abdominal aortic aneurysm. Lymph nodes: Unremarkable. No enlarged lymph nodes. IMPRESSION: No acute findings in the abdomen or pelvis. Electronically signed by: Cholo Nieto MD 01/26/24 23:31 PM
[2024-01-27 04:58] LABS: Hematocrit (blood only) 31.1 % (37.0-47.0); Hemoglobin 10.3 g/dl (12.0-16.0); Mean Corpuscular Hemoglobin 29.3 pg (25.0-34.0); Mean Corpuscular Hgb Conc 33.1 g/dL (32.0-36.0); Mean Corpuscular Volume 88.6 fL (80.0-100.0); Mean Platelet Volume 9.9 fL (9.4-12.4); Platelet Count 245 K/uL (130-400); RDW Coefficient of Variation 12.7 % (11.5-14.5); RDW Standard Deviation 41.2 fL (36.4-46.3); Red Blood Count 3.51 M/uL (4.20-5.40); White Blood Count 10.32 K/ul (4.8-10.8)
[2024-01-27 05:25] LABS: Troponin I High Sensitivity 153.9 pg/ml (0-14)
[2024-01-27 06:30] LABS: BUN Creatinine Ratio 10.9 (10-20); Calcium 8.2 mg/dl (8.6-10.3); Creatinine Clr Calc Pharmacy 76.4 ml/min; Est GFR (African American) 121.4 ml/min; Est GFR (Non-African American) 104.8 ml/min; Magnesium 2.2 mg/dl (1.7-2.4); Phosphorus 4.2 mg/dl (2.5-4.9); Potassium 4.3 mmol/L (3.5-5.1)
--- NOTE | 2024-01-27 07:20 | Critical Care Progress Note ---
Date of Service January 27, 2024 Assessment & Plan (1) Coronary artery vasospasm: (2) ST elevation: (3) Second degree AV block, Mobitz type II: (4) Syncope: (5) Chest pain: (6) Pulmonary emphysema: (7) Right groin pain: (8) Suprapubic tenderness: Plan 48-year-old female with a history of tobacco abuse, hypertension, anxiety and essential tremor who presents to the hospital with chest pain. Initial cardiac catheterization earlier this hospitalization without any significant occlusive disease seen. Patient has had ongoing angina and will be taken back to the [facility] Plant Supervisor today for further evaluation. -- STEMI S/p ISI RCA Continue with dual antiplatelet therapy along with statin --Episode of bradycardia Atropine as needed Cardiology on board -- Right groin pain In summary with recent intervention Rule out AV fistula versus bleeding -- Suprapubic tenderness This could be secondary to over distention prior to putting the Whitlock catheter in Sudden decrease in tension after putting the Whitlock catheter can also cause some tenderness There is no hematuria UA with culture ordered --Current smoker with subcentimeter pulmonary nodules Importance of quitting explained the patient in depth Lung screening in 1 year --Prophylaxis VTE: IPC GI: Pantoprazole Lines: Peripheral Diet: Cardiac Plan: In/out: -152, urine output 2725, +1.7 L since coming to the hospital For the right groin pain ultrasound of the right groin ordered. If this does not show any significant abnormality then CT of the hip and the groin will be ordered. Pain medication Continue to trend troponin. Decrease amlodipine to 5 mg on a daily basis ICU will continue to follow while she is in the unit I have personally spent 37 minutes of critical care time in the direct management of this patient. This is a life/limb threatening event. This includes time spent evaluating patient, direct bedside care, chart review, placing orders, interpretation of diagnostic studies, discussion with consultants, patient, and family members, as well as other required patient management activities. This time is exclusive of all separately billable procedures, and teaching time and separate from and in addition to any other critical care service time. Please note the above document was generated using voice recognition software. It may contain grammatical, syntax or spelling errors. Admission and Anticipated Discharge Date Admission Date: January 26, 2024 Subjective Patient seen and examined at bedside. No acute distress Overnight patient had an episode of bradycardia in the 40s and she was hypotensive. She got atropine for that. Denied any headache. Has been complaining of something getting stuck in the epigastric region when she is eating or drinking. Denies any odynophagia. No nausea or vomiting No chest pain No shortness of breath She did complain of sudden onset of sharp right groin pain which started approximately 30 minutes after had seen her initially. She stated that she heard a popping sound followed by pain. Review of Systems 2 Review of Systems: All systems reviewed & are unremarkable except as noted in Subjective Physical Exam 2 Physical Exam: Constitutional: No acute distress HEENT: EOMI, PERRLA Respiratory system: Good air entry bilaterally, no wheeze, rhonchi, mild crackles bilateral lower lobes CVS: S1-S2 positive, no murmurs or gallops Abdomen: Soft, positive suprapubic tenderness, no rebound, positive bowel sounds x4 Extremities: +2 pulses bilaterally radialis/ dorsalis pedis, no cyanosis, no edema Neuro: Awake alert oriented x3 Psych: Normal mood and affect G/U: Positive Whitlock Right groin tenderness, no rebound, no signs of hematoma or swelling Skin: no rashes, warm and dry Lymphatic: no cervical or axillary lymphadenopathy Results & Data Results & Data Vital Signs (Past 12 Hours) Vital Signs Pulse Resp BP Pulse Ox 01/27/24 06:30 115/63 01/27/24 06:30 73 14 99 01/27/24 06:24 73 12 100 01/27/24 06:15 107/56 L 01/27/24 06:15 63 11 L 100 01/27/24 06:10 101/59 L 01/27/24 06:00 62 12 100 01/27/24 06:00 110/64 01/27/24 05:57 65 12 100 01/27/24 05:45 64 10 L 100 01/27/24 05:45 111/64 01/27/24 05:42 67 14 100 01/27/24 05:35 110/71 01/27/24 05:27 70 11 L 100 01/27/24 05:15 64 10 L 100 01/27/24 05:15 108/60 01/27/24 05:12 66 11 L 100 01/27/24 05:03 65 11 L 100 01/27/24 04:57 63 10 L 100 01/27/24 04:55 98/58 L 01/27/24 04:50 107/62 01/27/24 04:45 60 14 100 01/27/24 04:45 111/57 L 01/27/24 04:42 63 9 L 100 01/27/24 04:40 114/55 L 01/27/24 04:27 58 L 11 L 100 01/27/24 04:21 63 11 L 100 01/27/24 04:15 106/56 L 01/27/24 04:15 61 10 L 100 01/27/24 04:12 63 10 L 100 01/27/24 04:10 101/64 01/27/24 04:05 104/58 L 01/27/24 04:03 57 L 7 L 100 01/27/24 03:45 92/58 L 01/27/24 03:45 61 11 L 100 01/27/24 03:35 100/59 L 01/27/24 03:33 65 10 L 100 01/27/24 03:30 61 13 100 01/27/24 03:30 98/60 L 01/27/24 03:25 111/63 01/27/24 03:20 108/55 L 01/27/24 03:06 61 11 L 100 01/27/24 02:45 70 15 100 01/27/24 02:45 119/64 01/27/24 02:21 63 10 L 100 01/27/24 02:15 65 11 L 100 01/27/24 02:15 100/58 L 01/27/24 02:12 65 10 L 100 01/27/24 02:10 100/55 L 01/27/24 02:09 66 11 L 100 01/27/24 02:00 62 10 L 100 01/27/24 02:00 108/61 01/27/24 01:54 74 12 100 01/27/24 01:45 97/56 L 01/27/24 01:45 64 10 L 100 01/27/24 01:40 105/59 L 01/27/24 01:33 61 14 100 01/27/24 01:18 65 11 L 100 01/27/24 01:10 101/56 L 01/27/24 01:09 66 12 100 01/27/24 01:00 103/54 L 01/27/24 01:00 63 12 100 01/27/24 00:55 94/50 L 01/27/24 00:54 65 10 L 100 01/27/24 00:50 95/52 L 01/27/24 00:48 67 11 L 100 01/27/24 00:42 63 14 100 01/27/24 00:39 62 12 100 01/27/24 00:35 94/53 L 01/27/24 00:21 66 11 L 100 01/27/24 00:15 101/56 L 01/27/24 00:15 67 12 100 01/27/24 00:10 102/64 01/27/24 00:05 123/65 01/27/24 00:00 67 01/26/24 23:55 102/58 L 01/26/24 23:48 72 13 100 01/26/24 23:45 108/65 01/26/24 23:45 70 10 L 100 01/26/24 23:33 69 10 L 100 01/26/24 23:25 127/73 01/26/24 23:20 125/78 01/26/24 23:12 68 18 100 01/26/24 23:10 126/71 01/26/24 22:30 69 12 100 01/26/24 22:30 121/78 01/26/24 22:20 126/75 01/26/24 22:18 77 11 L 100 01/26/24 22:12 83 10 L 100 01/26/24 22:00 92 H 14 100 01/26/24 22:00 147/83 H 01/26/24 21:57 107 H 14 100 01/26/24 21:40 130/83 01/26/24 21:36 102 H 22 97 01/26/24 21:35 126/78 01/26/24 21:33 103 H 20 100 01/26/24 21:30 97 H 12 100 01/26/24 21:27 101 H 22 100 01/26/24 21:12 112 H 23 95 01/26/24 21:09 111 H 20 100 01/26/24 20:54 84 6 L 100 01/26/24 20:27 91 H 0 L 100 01/26/24 20:21 108 H 0 L 100 01/26/24 20:20 117/83 01/26/24 20:18 116 H 0 L 100 01/26/24 19:57 54/31 L 01/26/24 19:57 52 L 9 L 99 01/26/24 19:54 64 10 L 97 01/26/24 19:42 69 9 L 99 01/26/24 19:24 68 13 99 Laboratory Results 01/27/24 04:36 01/27/24 04:36 Coding Level of Care Code 26768 CRITICAL CARE 1ST 30-74M Diagnoses Coronary artery vasospasm I20.1 ST elevation R94.31 Second degree AV block, Mobitz type II I44.1 Syncope R55 Syncope type: unspecified Chest pain R07.9 Chest pain type: unspecified Pulmonary emphysema J43.9 Right groin pain R10.31 Suprapubic tenderness R10.819 (4) Syncope Syncope type: unspecified Qualified Code(s): R55 - Syncope and collapse (5) Chest pain Chest pain type: unspecified Qualified Code(s): R07.9 - Chest pain, unspecified
[2024-01-27] MEDS: CLOPIDOGREL BISULFATE 75 MG TAB PO SCH (08:52)
[2024-01-27] MEDS: ALUMINUM/MAGNESIUM SUSP 30 ML UDC PO PRN (09:12)
[2024-01-27] MEDS: PLASMA-LYTE A 1,000 ML IV SCH (09:45)
--- NOTE | 2024-01-27 10:46 | Ultrasound Report ---
US arterial duplex LE RT CLINICAL HISTORY: RO AV fistula TECHNIQUE: Real-time grayscale and color and spectral Doppler ultrasound imaging of the right lower e xtremity arteries was performed. Measurements calculated based on NASCET criteria. COMPARISON: None available at the time of this dictation. FINDINGS: Patient is status post recent common femoral artery catheterization. No pseudoaneurysm is seen. There is a possible connection between the common femoral artery and common femoral vein at the site of th e catheter. There is a fluid collection superficial to the vessels measuring 3.4 x 0.9 x 1.7 cm with surrounding edema. IMPRESSION: 1. No evidence of pseudoaneurysm. There is a likely fistula between the common femoral artery and ve in. 2. Surrounding edema is likely postsurgical. ACT 112: Negative or not required by law. Electronically signed by: Raghu Murray M.D. 01/27/2024 10:44 AM
--- NOTE | 2024-01-27 10:57 | CT Scan Report ---
CT hip RT wo con, CT femur RT wo con CLINICAL HISTORY: Pain TECHNIQUE: Multidetector row helical CT of the right hip and right femur was performed without intrav enous contrast. Coronal and sagittal reformations were obtained. Automated dose lowering techniques a nd/or adjustment according to patient size were utilized for this examination. CT DOSE: 604.37 mGy.cm Comparison: Comparison is made to CT abdomen pelvis 124 FINDINGS: The osseous structures are without fracture or dislocation. The joint spaces are maintained. No joint effusion is seen. A Whitlock catheter is seen. Soft tissue stranding is in the right groin. IMPRESSION: 1. No acute abnormality of the bones or intra-abdominal structures. 2. Soft tissue stranding in the right groin. Please see right lower extremity Doppler ultrasound for findings of arteriovenous fistula. ACT 112: Negative or not required by law. Electronically signed by: Raghu Murray M.D. 01/27/2024 10:54 AM
[2024-01-27 12:08] LABS: Appearance Urine Clear (Clear); Bilirubin Urine Negative (Negative); Blood Urine Negative (Negative); Color Urine Yellow; Glucose Urine UA Negative (Negative); Ketones Urine Negative (Negative); Leukocyte Esterase Urine Negative (Negative); Nitrite Urine Negative (Negative); Protein Urine Negative (Negative); Urobilinogen Urine Negative (Negative); pH Urine >= 9.0 (4.5-7.5)
--- NOTE | 2024-01-27 12:25 | Cardiology Progress Note ---
Date of Service January 27, 2024 Assessment & Plan (1) ST elevation myocardial infarction (STEMI) of inferior wall: (2) S/P right coronary artery (RCA) stent placement: (3) Coronary artery vasospasm: (4) Second degree AV block, Mobitz type II: (5) Syncope: (6) Mitral regurgitation: (7) AV fistula: Plan 48-year-old female admitted with multiple episodes of syncope associated with chest pain. ST elevation occurring 01/25/2024 with second-degree AV block prompting urgent cardiac catheterization. Recurrent symptoms, ST elevations, and syncope in the morning 01/26/2024 prompting repeat coronary angiography and drug-eluting stent implantation to the mid right coronary artery. No recurrent chest pain overnight however, transient hypotension noted. This morning she noted right groin discomfort with ultrasound evidence of a possible, small, AV fistula. No ecchymosis or hematoma. With ongoing borderline hypotension, reduce amlodipine to 5 mg nightly. Continue dual antiplatelet therapy for minimum of 12 months post percutaneous intervention. Add high intensity statin therapy, atorvastatin 40 mg nightly. All questions answered to satisfaction of both the patient and her . I spent a total of 50 minutes on the date of service in preparation, delivery, and documentation of the care provided to this patient, excluding any time spent in the performance of separately billed services. Admission and Anticipated Discharge Date Admission Date: January 26, 2024 Subjective 48-year-old female seen and examined at the bedside. Drug-eluting stent planned to the right coronary artery 01/26/2024 without complication. Transient hypotension noted overnight with sinus bradycardia down to 50 bpm. Patient received 1 dose of 0.5 mg atropine with increased heart rate. She then developed urinary retention and a Whitlock catheter was placed. This morning she heard a "pop" followed by right groin discomfort. No evidence of hematoma, however, ultrasound suggest a small AV fistula. No palpable thrill. Distal pulses are present. Report mild paresthesias of her right lower extremity. Denies recurrent chest pain or heaviness. No recurrent second-degree AV block or ST elevation on telemetry. Review of Systems Review of Systems: All systems reviewed & are unremarkable except as noted in Subjective Physical Exam Constitutional: well nourished; no acute distress Respiratory: no respiratory distress and no labored breathing Auscultation: lungs clear to auscultation bilaterally; no crackles, no rales, no rhonchi and no wheezes Cardiovascular: Rate/Rhythm: regular rate and regular rhythm Heart Sounds: normal S1 and normal S2; no murmur (2/6 midsystolic murmur heard best at the apex.) Vessels: femoral pulses present (No right groin hematoma, ecchymosis, or palpable thrill.) and radial pulses present; no JVD and no carotid bruit Extremities: no edema Gastrointestinal (Abdomen): Inspection/Auscultation: abdomen normal to inspection and normal bowel sounds; abdomen not distended Percussion/Palpation: abdomen soft; abdomen nontender, no guarding and abdomen not rigid Neurologic: CN's II-XI intact bilaterally and moves all extremities; no focal motor deficits Results & Data Vital Signs (Past 12 Hours) Vital Signs Pulse Pulse Resp BP BP Pulse Ox O2 Del Method 01/27/24 10:00 70 13 113/59 L 96 Nasal Cannula 01/27/24 09:44 75 13 112/52 L 98 Nasal Cannula 01/27/24 09:37 78 20 103/68 99 Nasal Cannula 01/27/24 09:33 80 18 109/65 100 Nasal Cannula 01/27/24 09:30 96 H 23 127/77 99 Nasal Cannula 01/27/24 09:00 83 18 119/57 L 100 Nasal Cannula 01/27/24 08:30 66 16 106/63 100 Nasal Cannula 01/27/24 08:00 79 21 113/63 99 Nasal Cannula 01/27/24 08:00 Nasal Cannula 01/27/24 08:00 79 01/27/24 07:45 68 16 104/60 99 Nasal Cannula 01/27/24 07:12 79 17 95/58 L 100 Nasal Cannula 01/27/24 06:30 115/63 01/27/24 06:30 73 14 99 01/27/24 06:24 73 12 100 01/27/24 06:15 107/56 L 01/27/24 06:15 63 11 L 100 01/27/24 06:10 101/59 L 01/27/24 06:00 62 12 100 01/27/24 06:00 110/64 01/27/24 05:57 65 12 100 01/27/24 05:45 64 10 L 100 01/27/24 05:45 111/64 01/27/24 05:42 67 14 100 01/27/24 05:35 110/71 01/27/24 05:27 70 11 L 100 01/27/24 05:15 64 10 L 100 01/27/24 05:15 108/60 01/27/24 05:12 66 11 L 100 01/27/24 05:03 65 11 L 100 01/27/24 04:57 63 10 L 100 01/27/24 04:55 98/58 L 01/27/24 04:50 107/62 01/27/24 04:45 60 14 100 01/27/24 04:45 111/57 L 01/27/24 04:42 63 9 L 100 01/27/24 04:40 114/55 L 01/27/24 04:27 58 L 11 L 100 01/27/24 04:21 63 11 L 100 01/27/24 04:15 106/56 L 01/27/24 04:15 61 10 L 100 01/27/24 04:12 63 10 L 100 01/27/24 04:10 101/64 01/27/24 04:05 104/58 L 01/27/24 04:03 57 L 7 L 100 01/27/24 03:45 92/58 L 01/27/24 03:45 61 11 L 100 01/27/24 03:35 100/59 L 01/27/24 03:33 65 10 L 100 01/27/24 03:30 61 13 100 01/27/24 03:30 98/60 L 01/27/24 03:25 111/63 01/27/24 03:20 108/55 L 01/27/24 03:06 61 11 L 100 01/27/24 02:45 70 15 100 01/27/24 02:45 119/64 01/27/24 02:21 63 10 L 100 01/27/24 02:15 65 11 L 100 01/27/24 02:15 100/58 L 01/27/24 02:12 65 10 L 100 01/27/24 02:10 100/55 L 01/27/24 02:09 66 11 L 100 01/27/24 02:00 62 10 L 100 01/27/24 02:00 108/61 01/27/24 01:54 74 12 100 01/27/24 01:45 97/56 L 01/27/24 01:45 64 10 L 100 01/27/24 01:40 105/59 L 01/27/24 01:33 61 14 100 01/27/24 01:18 65 11 L 100 01/27/24 01:10 101/56 L 01/27/24 01:09 66 12 100 01/27/24 01:00 103/54 L 01/27/24 01:00 63 12 100 01/27/24 00:55 94/50 L 01/27/24 00:54 65 10 L 100 01/27/24 00:50 95/52 L 01/27/24 00:48 67 11 L 100 01/27/24 00:42 63 14 100 01/27/24 00:39 62 12 100 01/27/24 00:35 94/53 L 01/27/24 00:21 66 11 L 100 O2 Flow Rate 01/27/24 10:00 2 01/27/24 09:44 2 01/27/24 09:37 2 01/27/24 09:33 2 01/27/24 09:30 2 01/27/24 09:00 2 01/27/24 08:30 2 01/27/24 08:00 2 01/27/24 08:00 2 01/27/24 08:00 01/27/24 07:45 2 01/27/24 07:12 2 01/27/24 06:30 01/27/24 06:30 01/27/24 06:24 01/27/24 06:15 01/27/24 06:15 01/27/24 06:10 01/27/24 06:00 01/27/24 06:00 01/27/24 05:57 01/27/24 05:45 01/27/24 05:45 01/27/24 05:42 01/27/24 05:35 01/27/24 05:27 01/27/24 05:15 01/27/24 05:15 01/27/24 05:12 01/27/24 05:03 01/27/24 04:57 01/27/24 04:55 01/27/24 04:50 01/27/24 04:45 01/27/24 04:45 01/27/24 04:42 01/27/24 04:40 01/27/24 04:27 01/27/24 04:21 01/27/24 04:15 01/27/24 04:15 01/27/24 04:12 01/27/24 04:10 01/27/24 04:05 01/27/24 04:03 01/27/24 03:45 01/27/24 03:45 01/27/24 03:35 01/27/24 03:33 01/27/24 03:30 01/27/24 03:30 01/27/24 03:25 01/27/24 03:20 01/27/24 03:06 01/27/24 02:45 01/27/24 02:45 01/27/24 02:21 01/27/24 02:15 01/27/24 02:15 01/27/24 02:12 01/27/24 02:10 01/27/24 02:09 01/27/24 02:00 01/27/24 02:00 01/27/24 01:54 01/27/24 01:45 01/27/24 01:45 01/27/24 01:40 01/27/24 01:33 01/27/24 01:18 01/27/24 01:10 01/27/24 01:09 01/27/24 01:00 01/27/24 01:00 01/27/24 00:55 01/27/24 00:54 01/27/24 00:50 01/27/24 00:48 01/27/24 00:42 01/27/24 00:39 01/27/24 00:35 01/27/24 00:21 Laboratory Results Cardiac Enzymes 01/26/24 01/27/24 Range/Units 20:24 04:36 AST 18 (13-39) U/L Troponin I High Sens 104.1 H* D 153.9 H* D (0-14) pg/ml Coagulation 01/26/24 Range/Units 20:24 PT 10.7 (9.0-12.0) Seconds CBC 01/26/24 01/27/24 Range/Units 20:24 04:36 WBC 9.12 10.32 (4.8-10.8) K/ul RBC 3.88 L 3.51 L (4.20-5.40) M/uL Hgb 11.7 L 10.3 L (12.0-16.0) g/dl Hct 34.6 L 31.1 L (37.0-47.0) % Plt Count 274 245 (130-400) K/uL Neut # (Auto) 6.00 (1.40-6.50) K/uL Lymph # (Auto) 2.26 (1.20-3.40) K/uL Jones # (Auto) 0.68 H (0.11-0.59) K/uL Eos # (Auto) 0.09 (0.00-0.50) K/uL Baso # (Auto) 0.05 (0.00-0.20) K/uL Comprehensive Metabolic Panel 01/26/24 01/27/24 Range/Units 20:24 04:36 Sodium 137 137 (136-145) mmol/L Potassium 3.9 4.3 (3.5-5.1) mmol/L Chloride 105 107 (98-107) mmol/L Carbon Dioxide 27 28 (21-32) mmol/L BUN 7 7 (6-23) mg/dl Creatinine 0.72 0.64 (0.6-1.2) mg/dl Glucose 102 H 89 (70-99(Fasting)) mg/dl Calcium 8.1 L 8.2 L (8.6-10.3) mg/dl AST 18 (13-39) U/L ALT 35 (7-52) U/L Alkaline Phosphatase 50 (34-104) U/L Total Protein 5.6 L (6.0-8.3) gm/dl Albumin 3.5 (3.4-5.0) gm/dl Intake and Output 01/26/24 01/27/24 01/27/24 22:59 06:59 14:59 Intake Total 459.6 / 2574.7 2100 / 2574.7 0 / 0 Output Total 850 / 2725 1750 / 2725 1300 / 1300 Balance -390.4 / -150.3 350 / -150.3 -1300 / -1300 Intake: IV 459.6 / 2574.7 2100 / 2574.7 0 / 0 Calcium Gluconate 1,000 mg In 60 / 60 60 ml @ 240 mls/hr IV NOW STA Rx#:[id number] Magnesium Sulfate / D5w 1 gm In 100 / 100 100 ml @ 50 mls/hr IV ONE ONE Rx#:[id number] Nitroglycerin/D5w 100Mcg/ml 250 0 / 0 ml @ 0 MCG/MIN IV .Q0M [facility] Rx# :[id number] Plasma-Lyte A 1,000 ml @ 125 2000 / 2000 mls/hr IV .Q8H [facility] Rx#:[id number] Sodium Chloride 0.9% 1,000 ml @ 399.6 / 399.6 999 mls/hr IV .Q1H1M ONE Rx#: [id number] Output: Urine Amount (Catheter) 850 / 2600 1750 / 2600 1300 / 1300 Whitlock/Indwelling 850 / 2600 1750 / 2600 1300 / 1300 Other: Weight 51.1 kg Weight Measurement Method Built in [facility] (5) Syncope Syncope type: unspecified Qualified Code(s): R55 - Syncope and collapse (6) Mitral regurgitation Cardiac valve disease etiology: nonrheumatic Qualified Code(s): I34.0 - Nonrheumatic mitral (valve) insufficiency
--- NOTE | 2024-01-27 13:56 | Hospitalist Progress Note ---
Date of Service January 27, 2024 Assessment & Plan (1) Chest pain: (2) ST elevation myocardial infarction (STEMI) of inferior wall: (3) S/P right coronary artery (RCA) stent placement: (4) Coronary artery vasospasm: (5) Second degree AV block, Mobitz type II: Plan Pt is a 48yo with PMhx significant for CVA, hypertension, migraine, essential tremors, pulmonary nodules, past tobacco abuse presenting with chest pain and syncope. STEMI Coronary artery Vasospasm Second degree Heart Block Chest pain associated with syncopal events, recurrent since admission Rule out ACS given patient risk factors Uncontrolled hypertension and anxiety possibly contributory History hypertension of BP medications for about 10 years due to low BP in the past as per patient account Cardiology consulted, appreciate recs Trops initially wnl Echo noting mitral valve prolapse EKG concerning on 01/24, taken to cardiac cath, dx at time left vasospasm with noted 30% RCA stenosis Repeat episode on 01/25, EKG concerning, cardiac cath once more, noting 70% RCA stenosis, pt s/p ISI placement x1 Interventional cardiology recommending DAPT, continue coronary vasodilators, cardiac rehab, ASCVD risk factor modification Appreciate further cardiology recs, monitored in ICU post procedure -reduce amlodipine to 5 mg nightly due to borderline hypotension -DAPT for minimum of 12 months -high intensity statin therapy, atorvastatin 40 mg nightly Syncope workup with Head and neck CTA, brain MRI -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 DVT prophylaxis. Lovenox subcu Full code Admission and Anticipated Discharge Date Admission Date: January 26, 2024 Subjective Pt seen while in the ICU. Family at bedside. Notes persistent 4/10 pain/ache in the chest, denies associated SOB. Review of Systems Review of Systems: All systems reviewed & are unremarkable except as noted in Subjective Physical Exam Physical Exam: General: Alert, oriented. Psych: Appropriate mood and affect HEENT: NC/AT Chest: Nontender to palpation. CV: RRR Resp: Breath sounds clear bilaterally, no increased effort of breathing. Abdomen: Soft, nontender, nondistended. Extremities: No edema in lower extremities bilaterally. Results & Data Results & Data Vital Signs (Past 12 Hours) Vital Signs Temp Pulse Pulse Resp BP BP Pulse Ox 01/27/24 12:00 36.8 C 80 20 141/81 H 99 01/27/24 11:00 78 17 130/77 99 01/27/24 10:00 70 13 113/59 L 96 01/27/24 09:44 75 13 112/52 L 98 01/27/24 09:37 78 20 103/68 99 01/27/24 09:33 80 18 109/65 100 01/27/24 09:30 96 H 23 127/77 99 01/27/24 09:00 83 18 119/57 L 100 01/27/24 08:30 66 16 106/63 100 01/27/24 08:00 79 21 113/63 99 01/27/24 08:00 01/27/24 08:00 79 01/27/24 07:45 68 16 104/60 99 01/27/24 07:12 79 17 95/58 L 100 01/27/24 07:00 36.7 C 01/27/24 06:30 115/63 01/27/24 06:30 73 14 99 01/27/24 06:24 73 12 100 01/27/24 06:15 107/56 L 01/27/24 06:15 63 11 L 100 01/27/24 06:10 101/59 L 01/27/24 06:00 62 12 100 01/27/24 06:00 110/64 01/27/24 05:57 65 12 100 01/27/24 05:45 64 10 L 100 01/27/24 05:45 111/64 01/27/24 05:42 67 14 100 01/27/24 05:35 110/71 01/27/24 05:27 70 11 L 100 01/27/24 05:15 64 10 L 100 01/27/24 05:15 108/60 01/27/24 05:12 66 11 L 100 01/27/24 05:03 65 11 L 100 01/27/24 04:57 63 10 L 100 01/27/24 04:55 98/58 L 01/27/24 04:50 107/62 01/27/24 04:45 60 14 100 01/27/24 04:45 111/57 L 01/27/24 04:42 63 9 L 100 01/27/24 04:40 114/55 L 01/27/24 04:27 58 L 11 L 100 01/27/24 04:21 63 11 L 100 01/27/24 04:15 106/56 L 01/27/24 04:15 61 10 L 100 01/27/24 04:12 63 10 L 100 01/27/24 04:10 101/64 01/27/24 04:05 104/58 L 01/27/24 04:03 57 L 7 L 100 01/27/24 03:45 92/58 L 01/27/24 03:45 61 11 L 100 01/27/24 03:35 100/59 L 01/27/24 03:33 65 10 L 100 01/27/24 03:30 61 13 100 01/27/24 03:30 98/60 L 01/27/24 03:25 111/63 01/27/24 03:20 108/55 L 01/27/24 03:06 61 11 L 100 01/27/24 02:45 70 15 100 01/27/24 02:45 119/64 01/27/24 02:21 63 10 L 100 01/27/24 02:15 65 11 L 100 01/27/24 02:15 100/58 L 01/27/24 02:12 65 10 L 100 01/27/24 02:10 100/55 L 01/27/24 02:09 66 11 L 100 01/27/24 02:00 62 10 L 100 01/27/24 02:00 108/61 O2 Del Method O2 Flow Rate 01/27/24 12:00 Room Air 01/27/24 11:00 Room Air 01/27/24 10:00 Nasal Cannula 2 01/27/24 09:44 Nasal Cannula 2 01/27/24 09:37 Nasal Cannula 2 01/27/24 09:33 Nasal Cannula 2 01/27/24 09:30 Nasal Cannula 2 01/27/24 09:00 Nasal Cannula 2 01/27/24 08:30 Nasal Cannula 2 01/27/24 08:00 Nasal Cannula 2 01/27/24 08:00 Nasal Cannula 2 01/27/24 08:00 01/27/24 07:45 Nasal Cannula 2 01/27/24 07:12 Nasal Cannula 2 01/27/24 07:00 01/27/24 06:30 01/27/24 06:30 01/27/24 06:24 01/27/24 06:15 01/27/24 06:15 01/27/24 06:10 01/27/24 06:00 01/27/24 06:00 01/27/24 05:57 01/27/24 05:45 01/27/24 05:45 01/27/24 05:42 01/27/24 05:35 01/27/24 05:27 01/27/24 05:15 01/27/24 05:15 01/27/24 05:12 01/27/24 05:03 01/27/24 04:57 01/27/24 04:55 01/27/24 04:50 01/27/24 04:45 01/27/24 04:45 01/27/24 04:42 01/27/24 04:40 01/27/24 04:27 01/27/24 04:21 01/27/24 04:15 01/27/24 04:15 01/27/24 04:12 01/27/24 04:10 01/27/24 04:05 01/27/24 04:03 01/27/24 03:45 01/27/24 03:45 01/27/24 03:35 01/27/24 03:33 01/27/24 03:30 01/27/24 03:30 01/27/24 03:25 01/27/24 03:20 01/27/24 03:06 01/27/24 02:45 01/27/24 02:45 01/27/24 02:21 01/27/24 02:15 01/27/24 02:15 01/27/24 02:12 01/27/24 02:10 01/27/24 02:09 01/27/24 02:00 01/27/24 02:00 (1) Chest pain Chest pain type: unspecified Qualified Code(s): R07.9 - Chest pain, unspecified
--- NOTE | 2024-01-27 15:09 | Communication Note ---
Date of Service: January 27, 2024 Patient seen and examined. Arterial duplex and CT reviewed. At time of exam feeling well. No pain other than mild chest burning (similar symptoms predating recent presentation). On exam RT [employer]ATOR access site tender but no palpable hematoma. Minimal ecchymosis. 2+ [employer] CH[employer], DP/PT pulses with normal capillary refill. No edema. On duplex/CT appears to have hematoma circumferential around [employer] CH[employer]ATOR access site. Closure device visible and in place. No evidence of arterial stenosis or pseudoaneurysm. Unclear if has iatrogenic AV fistula. Appears that CFV partially compressed by FA hematoma leading to partially obstructive flow pattern. If does have AV fistula it is very small and recommend conservative management. Fistula should heal without intervention. Continue DAPT with ASA/Clopidogrel. Further cardiac recs per Dr. Jalloh.
[2024-01-27] MEDS: amLODIPine BESYLATE 5 MG TAB PO SCH (21:20)
[2024-01-28 05:03] LABS: Hemoglobin 11.3 g/dl (12.0-16.0); Mean Corpuscular Hemoglobin 30.5 pg (25.0-34.0); Mean Corpuscular Hgb Conc 34.2 g/dL (32.0-36.0); Mean Corpuscular Volume 88.9 fL (80.0-100.0); Mean Platelet Volume 10.2 fL (9.4-12.4); Platelet Count 281 K/uL (130-400); RDW Coefficient of Variation 12.9 % (11.5-14.5); RDW Standard Deviation 42.1 fL (36.4-46.3); Red Blood Count 3.71 M/uL (4.20-5.40); White Blood Count 8.92 K/ul (4.8-10.8)
[2024-01-28 05:12] LABS: BUN Creatinine Ratio 8.8 (10-20); Calcium 8.7 mg/dl (8.6-10.3); Creatinine Clr Calc Pharmacy 61.1 ml/min; Est GFR (African American) 100.3 ml/min; Est GFR (Non-African American) 86.6 ml/min; Magnesium 1.9 mg/dl (1.7-2.4); Phosphorus 3.9 mg/dl (2.5-4.9); Potassium 4.2 mmol/L (3.5-5.1)
--- NOTE | 2024-01-28 06:16 | Electrocardiogram Report ---
Test Reason : Blood Pressure : / mmHG Vent. Rate : 079 BPM Atrial Rate : 079 BPM P-R Int : 142 ms QRS Dur : 086 ms QT Int : 408 ms P-R-T Axes : 041 057 -12 degrees QTc Int : 467 ms Normal sinus rhythm Septal infarct , age undetermined T wave abnormality, consider inferior ischemia Abnormal ECG When compared with ECG of 25-JAN-2024 10:03, No significant change was found Confirmed by Jovanni Ba ([id number]) on 01/28/2024 6:16:12 AM Referred By: REFERRED SELF Confirmed By:Jovanni Ba
--- NOTE | 2024-01-28 06:21 | Electrocardiogram Report ---
Test Reason : Blood Pressure : / mmHG Vent. Rate : 068 BPM Atrial Rate : 068 BPM P-R Int : 140 ms QRS Dur : 088 ms QT Int : 432 ms P-R-T Axes : 036 057 035 degrees QTc Int : 459 ms Normal sinus rhythm with sinus arrhythmia Septal infarct (cited on or before 25-JAN-2024) Abnormal ECG When compared with ECG of 25-JAN-2024 21:20, No significant change was found Confirmed by Jovanni Ba ([id number]) on 01/28/2024 6:21:49 AM Referred By: REFERRED SELF Confirmed By:Jovanni Ba
[2024-01-28] MEDS ORDERED: LORATADINE 10 MG TAB PO PRN (08:04)
[2024-01-28] MEDS: ATORVASTATIN 40 MG TAB PO SCH (08:32)
--- NOTE | 2024-01-28 09:11 | Hospitalist Progress Note ---
Date of Service January 28, 2024 Assessment & Plan (1) Chest pain: (2) ST elevation myocardial infarction (STEMI) of inferior wall: (3) S/P right coronary artery (RCA) stent placement: (4) Coronary artery vasospasm: (5) Second degree AV block, Mobitz type II: Plan Pt is a 48yo with PMhx significant for CVA, hypertension, migraine, essential tremors, pulmonary nodules, past tobacco abuse presenting with chest pain and syncope. STEMI STEMI of inferior wall, not POA Coronary artery Vasospasm Second degree Heart Block Chest pain associated with syncopal events, recurrent since admission Rule out ACS given patient risk factors Uncontrolled hypertension and anxiety possibly contributory History hypertension of BP medications for about 10 years due to low BP in the past as per patient account Cardiology consulted, appreciate recs Trops initially wnl Echo noting mitral valve prolapse EKG concerning on 01/24, taken to cardiac cath, dx at time left vasospasm with noted 30% RCA stenosis Repeat episode on 01/25, EKG concerning, cardiac cath once more, noting 70% RCA stenosis, pt s/p ISI placement x1 Interventional cardiology recommending DAPT, continue coronary vasodilators, cardiac rehab, ASCVD risk factor modification Appreciate further cardiology recs, monitored in ICU post procedure -reduce amlodipine to 5 mg nightly due to borderline hypotension -DAPT for minimum of 12 months -high intensity statin therapy, atorvastatin 40 mg nightly Syncope workup with Head and neck CTA, brain MRI -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 DVT prophylaxis. Lovenox subcu Full code Admission and Anticipated Discharge Date Admission Date: January 26, 2024 Physical Exam Physical Exam: General: Alert, oriented. Psych: Appropriate mood and affect HEENT: NC/AT Chest: Nontender to palpation. CV: RRR Resp: Breath sounds clear bilaterally, no increased effort of breathing. Abdomen: Soft, nontender, nondistended. Extremities: No edema in lower extremities bilaterally. Results & Data Results & Data Vital Signs (Past 12 Hours) Vital Signs Temp Pulse Pulse Resp BP BP Pulse Ox 01/28/24 09:00 88 19 106/55 L 96 01/28/24 07:06 63 16 110/63 97 01/28/24 06:12 67 97 01/28/24 05:03 72 97 01/28/24 05:00 111/64 01/28/24 04:54 68 97 01/28/24 04:12 37 C 70 94/56 L 96 01/28/24 03:06 70 97 01/28/24 02:06 75 97 01/28/24 02:00 92/50 L 01/28/24 01:58 111/52 L 01/28/24 01:44 72 97 01/28/24 01:02 71 18 96 01/28/24 01:00 89/45 L 01/28/24 00:59 72 18 97 01/28/24 00:09 65 0 L 97 01/27/24 23:02 66 97 01/27/24 22:24 69 16 97 01/27/24 22:15 68 16 98 01/27/24 22:06 68 20 107/67 98 01/27/24 21:51 67 97 01/27/24 21:45 66 97 01/27/24 21:42 65 97 01/27/24 21:39 68 98 01/27/24 21:21 70 97 01/27/24 21:18 71 97 O2 Del Method 01/28/24 09:00 Room Air 01/28/24 07:06 Room Air 01/28/24 06:12 01/28/24 05:03 01/28/24 05:00 01/28/24 04:54 01/28/24 04:12 01/28/24 03:06 01/28/24 02:06 01/28/24 02:00 01/28/24 01:58 01/28/24 01:44 01/28/24 01:02 01/28/24 01:00 01/28/24 00:59 01/28/24 00:09 01/27/24 23:02 01/27/24 22:24 01/27/24 22:15 01/27/24 22:06 01/27/24 21:51 01/27/24 21:45 01/27/24 21:42 01/27/24 21:39 01/27/24 21:21 01/27/24 21:18 (1) Chest pain Chest pain type: unspecified Qualified Code(s): R07.9 - Chest pain, unspecified
--- NOTE | 2024-01-28 09:25 | Critical Care Progress Note ---
Date of Service January 28, 2024 Assessment & Plan (1) Coronary artery vasospasm: (2) ST elevation: (3) Second degree AV block, Mobitz type II: (4) Syncope: (5) Chest pain: (6) Pulmonary emphysema: (7) Right groin pain: (8) Suprapubic tenderness: Plan 48-year-old female with a history of tobacco abuse, hypertension, anxiety and essential tremor who presents to the hospital with chest pain. Initial cardiac catheterization earlier this hospitalization without any significant occlusive disease seen. Patient has had ongoing angina and will be taken back to the [facility] today for further evaluation. -- STEMI S/p ISI RCA Continue with dual antiplatelet therapy along with statin --Episode of bradycardia Atropine as needed Cardiology on board -- Right groin pain In summary with recent intervention Rule out AV fistula versus bleeding -- Suprapubic tenderness This could be secondary to over distention prior to putting the Whitlock catheter in Sudden decrease in tension after putting the Whitlock catheter can also cause some tenderness There is no hematuria UA with culture ordered --Current smoker with subcentimeter pulmonary nodules Importance of quitting explained the patient in depth Lung screening in 1 year --Prophylaxis VTE: IPC GI: Pantoprazole Lines: Peripheral Diet: Cardiac Plan: In/out: -152, urine output 2725, +1.7 L since coming to the hospital For the right groin pain ultrasound of the right groin ordered. If this does not show any significant abnormality then CT of the hip and the groin will be ordered. Pain medication Continue to trend troponin. Decrease amlodipine to 5 mg on a daily basis ICU will continue to follow while she is in the unit I have personally spent 37 minutes of critical care time in the direct management of this patient. This is a life/limb threatening event. This includes time spent evaluating patient, direct bedside care, chart review, placing orders, interpretation of diagnostic studies, discussion with consultants, patient, and family members, as well as other required patient management activities. This time is exclusive of all separately billable procedures, and teaching time and separate from and in addition to any other critical care service time. Please note the above document was generated using voice recognition software. It may contain grammatical, syntax or spelling errors. Admission and Anticipated Discharge Date Admission Date: January 26, 2024 Results & Data Results & Data Vital Signs (Past 12 Hours) Vital Signs Temp Pulse Pulse Resp BP BP Pulse Ox 01/28/24 09:00 88 19 106/55 L 96 01/28/24 07:06 63 16 110/63 97 01/28/24 06:12 67 97 01/28/24 05:03 72 97 01/28/24 05:00 111/64 01/28/24 04:54 68 97 01/28/24 04:12 37 C 70 94/56 L 96 01/28/24 03:06 70 97 01/28/24 02:06 75 97 01/28/24 02:00 92/50 L 01/28/24 01:58 111/52 L 01/28/24 01:44 72 97 01/28/24 01:02 71 18 96 01/28/24 01:00 89/45 L 01/28/24 00:59 72 18 97 01/28/24 00:09 65 0 L 97 01/27/24 23:02 66 97 01/27/24 22:24 69 16 97 01/27/24 22:15 68 16 98 01/27/24 22:06 68 20 107/67 98 01/27/24 21:51 67 97 01/27/24 21:45 66 97 01/27/24 21:42 65 97 01/27/24 21:39 68 98 O2 Del Method 01/28/24 09:00 Room Air 01/28/24 07:06 Room Air 01/28/24 06:12 01/28/24 05:03 01/28/24 05:00 01/28/24 04:54 01/28/24 04:12 01/28/24 03:06 01/28/24 02:06 01/28/24 02:00 01/28/24 01:58 01/28/24 01:44 01/28/24 01:02 01/28/24 01:00 01/28/24 00:59 01/28/24 00:09 01/27/24 23:02 01/27/24 22:24 01/27/24 22:15 01/27/24 22:06 01/27/24 21:51 01/27/24 21:45 01/27/24 21:42 01/27/24 21:39 Critical Care Results & Data Vital Signs (Past 12 Hours) Vital Signs Temp Pulse Pulse Resp BP BP Pulse Ox 01/28/24 09:00 88 19 106/55 L 96 01/28/24 07:06 63 16 110/63 97 01/28/24 06:12 67 97 01/28/24 05:03 72 97 01/28/24 05:00 111/64 01/28/24 04:54 68 97 01/28/24 04:12 37 C 70 94/56 L 96 01/28/24 03:06 70 97 01/28/24 02:06 75 97 01/28/24 02:00 92/50 L 01/28/24 01:58 111/52 L 01/28/24 01:44 72 97 01/28/24 01:02 71 18 96 01/28/24 01:00 89/45 L 01/28/24 00:59 72 18 97 01/28/24 00:09 65 0 L 97 01/27/24 23:02 66 97 01/27/24 22:24 69 16 97 01/27/24 22:15 68 16 98 01/27/24 22:06 68 20 107/67 98 01/27/24 21:51 67 97 01/27/24 21:45 66 97 01/27/24 21:42 65 97 01/27/24 21:39 68 98 O2 Del Method 01/28/24 09:00 Room Air 01/28/24 07:06 Room Air 01/28/24 06:12 01/28/24 05:03 01/28/24 05:00 01/28/24 04:54 01/28/24 04:12 01/28/24 03:06 01/28/24 02:06 01/28/24 02:00 01/28/24 01:58 01/28/24 01:44 01/28/24 01:02 01/28/24 01:00 01/28/24 00:59 01/28/24 00:09 01/27/24 23:02 01/27/24 22:24 01/27/24 22:15 01/27/24 22:06 01/27/24 21:51 01/27/24 21:45 01/27/24 21:42 01/27/24 21:39 Lab & Micro Results (Past 24 Hours) RBC 3.71 M/uL (4.20-5.40) L 01/28/24 WBC 8.92 K/ul (4.8-10.8) 01/28/24 Hgb 11.3 g/dl (12.0-16.0) L 01/28/24 Hct 33.0 % (37.0-47.0) L 01/28/24 MCV 88.9 fL (80.0-100.0) 01/28/24 MCH 30.5 pg (25.0-34.0) 01/28/24 MCHC 34.2 g/dL (32.0-36.0) 01/28/24 RDW Standard Deviation 42.1 fL (36.4-46.3) 01/28/24 RDW Coefficient of Variation 12.9 % (11.5-14.5) 01/28/24 Plt Count 281 K/uL (130-400) 01/28/24 MPV 10.2 fL (9.4-12.4) 01/28/24 Na 136 mmol/L (136-145) 01/28/24 K 4.2 mmol/L (3.5-5.1) 01/28/24 Cl 104 mmol/L (98-107) 01/28/24 CO2 29 mmol/L (21-32) 01/28/24 Anion Gap 3 (3-11) 01/28/24 BUN 7 mg/dl (6-23) 01/28/24 Creatinine 0.80 mg/dl (0.6-1.2) 01/28/24 Estimated GFR ( Amer) 100.3 ml/min 01/28/24 Estimated GFR (Non-Af Amer) 86.6 ml/min 01/28/24 BUN/Creatinine Ratio 8.8 (10-20) L 01/28/24 Glu 97 mg/dl (70-99(Fasting)) 01/28/24 Ca 8.7 mg/dl (8.6-10.3) 01/28/24 Phosphorus Level 3.9 mg/dl (2.5-4.9) 01/28/24 Mg 1.9 mg/dl (1.7-2.4) 01/28/24 04:41 Calcium Level 8.7 mg/dl (8.6-10.3) 01/28/24 04:41 Diagnostic Findings (Past 24 Hours) Duplex Scan Lower Extremity Artery 01/27/24 09:30 US arterial duplex LE RT CLINICAL HISTORY: RO AV fistula TECHNIQUE: Real-time grayscale and color and spectral Doppler ultrasound imaging of the right lower extremity arteries was performed. Measurements calculated based on NASCET criteria. COMPARISON: None available at the time of this dictation. FINDINGS: Patient is status post recent common femoral artery catheterization. No pseudoaneurysm is seen. There is a possible connection between the common femoral artery and common femoral vein at the site of the catheter. There is a fluid collection superficial to the vessels measuring 3.4 x 0.9 x 1.7 cm with surrounding edema. IMPRESSION: 1. No evidence of pseudoaneurysm. There is a likely fistula between the common femoral artery and vein. 2. Surrounding edema is likely postsurgical. ACT 112: Negative or not required by law. Electronically signed by: Raghu Murray M.D. 01/27/2024 10:[address] 01/27/24 10:12 CT hip RT wo con, CT femur RT wo con CLINICAL HISTORY: Pain TECHNIQUE: Multidetector row helical CT of the right hip and right femur was performed without intravenous contrast. Coronal and sagittal reformations were obtained. Automated dose lowering techniques and/or adjustment according to patient size were utilized for this examination. CT DOSE: 604.37 mGy.cm Comparison: Comparison is made to CT abdomen pelvis 124 FINDINGS: The osseous structures are without fracture or dislocation. The joint spaces are maintained. No joint effusion is seen. A Whitlock catheter is seen. Soft tissue stranding is in the right groin. IMPRESSION: 1. No acute abnormality of the bones or intra-abdominal structures. 2. Soft tissue stranding in the right groin. Please see right lower extremity Doppler ultrasound for findings of arteriovenous fistula. ACT 112: Negative or not required by law. Electronically signed by: Raghu Murray M.D. 01/27/2024 10:[address] 01/27/24 10:12 CT hip RT wo con, CT femur RT wo con CLINICAL HISTORY: Pain TECHNIQUE: Multidetector row helical CT of the right hip and right femur was performed without intravenous contrast. Coronal and sagittal reformations were obtained. Automated dose lowering techniques and/or adjustment according to patient size were utilized for this examination. CT DOSE: 604.37 mGy.cm Comparison: Comparison is made to CT abdomen pelvis 124 FINDINGS: The osseous structures are without fracture or dislocation. The joint spaces are maintained. No joint effusion is seen. A Whitlock catheter is seen. Soft tissue stranding is in the right groin. IMPRESSION: 1. No acute abnormality of the bones or intra-abdominal structures. 2. Soft tissue stranding in the right groin. Please see right lower extremity Doppler ultrasound for findings of arteriovenous fistula. ACT 112: Negative or not required by law. Electronically signed by: Raghu Murray M.D. 01/27/2024 10:54 AM I & O Totals 24 Hours 01/27/24 01/28/24 01/29/24 06:59 06:59 06:59 Intake Total 2574.7 / 2574.7 622.917 / 622.917 Output Total 2725 / 2725 3201 / 3201 515 / 515 Balance -150.3 / -150.3 -2578.083 / -2578.083 -515 / -515 Cumulative 01/24/24 13:59 thru 01/28/24 09:09 Intake Total 5099.284 Output Total 6441 Balance -1341.716 RT Ventilator Mngmt (Last Documented) Ventilator Ordered Settings Respiratory Rate 19 01/28/24 09:00 Ventilator - PT Measurements Respiratory Rate 19 End-Tidal CO2 31 Coding Diagnoses Coronary artery vasospasm I20.1 ST elevation R94.31 Second degree AV block, Mobitz type II I44.1 Syncope R55 Syncope type: unspecified Chest pain R07.9 Chest pain type: unspecified Pulmonary emphysema J43.9 Right groin pain R10.31 Suprapubic tenderness R10.819 (4) Syncope Syncope type: unspecified Qualified Code(s): R55 - Syncope and collapse (5) Chest pain Chest pain type: unspecified Qualified Code(s): R07.9 - Chest pain, unspecified
--- NOTE | 2024-01-28 09:44 | Cardiology Progress Note ---
Date of Service January 28, 2024 Assessment & Plan (1) ST elevation myocardial infarction (STEMI) of inferior wall: (2) S/P right coronary artery (RCA) stent placement: (3) Coronary artery vasospasm: (4) Second degree AV block, Mobitz type II: (5) Syncope: (6) Mitral regurgitation: (7) AV fistula: Plan 48-year-old female admitted with multiple episodes of syncope associated with chest pain. ST elevation occurring 01/25/2024 with second-degree AV block prompting urgent cardiac catheterization. Recurrent symptoms, ST elevations, and syncope in the morning 01/26/2024 prompting repeat coronary angiography and drug-eluting stent implantation to the mid right coronary artery. No recurrent chest pain overnight however, transient hypotension noted. This morning she noted right groin discomfort with ultrasound evidence of a possible, small, AV fistula. No ecchymosis or hematoma. 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 * Patient was initially to receive amlodipine 5 mg twice daily, dose however reduced to 5 mg in the evening as of last night due to concerns of ongoing relative hypotension. The amlodipine dose to last evening however was held for systolic blood pressure less than 100 mmHg. * Resume amlodipine however at a lower dose, 2.5 mg daily, first dose now I will assess response. * Avoid AV morelia blockers. * Continue aspirin 81 mg daily (lifelong therapy), clopidogrel 75 mg daily (for at least 1 year at which time ongoing treatment will be reassessed), and atorvastatin 40 mg daily. * Interventional cardiology input noted and appreciated, agree with ongoing observation of right groin. * The patient continues to feel well after receiving amlodipine this morning, tentative discharge today. * Difficult to determine if the moderate to severe mitral regurgitation may have been transient and related to intermittent ischemia, will need to repeat echocardiogram as an outpatient in about a month. Admission and Anticipated Discharge Date Admission Date: January 26, 2024 Subjective Patient seen in cardiology follow up in ICU room 108. She states she feels great. Denies chest pain or arm pain. Has been ambulating in the unit. Telemetry reveals SR in the 90s to 100 bpm. No recurrent bradycardia since 01/26/24 at 5:17 pm. Review of Systems Review of Systems: All systems reviewed & are unremarkable except as noted in HPI & below Physical Exam Constitutional: WD/WN, vitals as above well nourished and + thin; no acute distress Neck: normal visual inspection Respiratory: normal respiratory effort, lungs clear to auscultation no respiratory distress and no labored breathing Auscultation: lungs clear to auscultation bilaterally; no crackles, no rales, no rhonchi and no wheezes Cardiovascular: Rate/Rhythm: regular rate and regular rhythm Heart Sounds: normal S1 and normal S2; no murmur (2/6 midsystolic murmur heard best at the apex.) Vessels: femoral pulses present (No right groin hematoma, ecchymosis, or palpable thrill.) and radial pulses present; no JVD and no carotid bruit Extremities: no edema Gastrointestinal (Abdomen): normal bowel sounds, soft, nontender, no hepatosplenomegaly Inspection/Auscultation: abdomen normal to inspection and normal bowel sounds; abdomen not distended Percussion/Palpation: abdomen soft; abdomen nontender, no guarding and abdomen not rigid Neurologic: PERRL, EOMI, accommodation nl, no face palsy, no dysarthria CN's II-XI intact bilaterally and moves all extremities; no focal motor deficits Results & Data Vital Signs (Past 12 Hours) Vital Signs Temp Pulse Pulse Resp BP BP Pulse Ox 01/28/24 09:00 88 19 106/55 L 96 01/28/24 07:06 63 16 110/63 97 01/28/24 06:12 67 97 01/28/24 05:03 72 97 01/28/24 05:00 111/64 01/28/24 04:54 68 97 01/28/24 04:12 37 C 70 94/56 L 96 01/28/24 03:06 70 97 01/28/24 02:06 75 97 01/28/24 02:00 92/50 L 01/28/24 01:58 111/52 L 01/28/24 01:44 72 97 01/28/24 01:02 71 18 96 01/28/24 01:00 89/45 L 01/28/24 00:59 72 18 97 01/28/24 00:09 65 0 L 97 01/27/24 23:02 66 97 01/27/24 22:24 69 16 97 01/27/24 22:15 68 16 98 01/27/24 22:06 68 20 107/67 98 01/27/24 21:51 67 97 01/27/24 21:45 66 97 01/27/24 21:42 65 97 01/27/24 21:39 68 98 O2 Del Method 01/28/24 09:00 Room Air 01/28/24 07:06 Room Air 01/28/24 06:12 01/28/24 05:03 01/28/24 05:00 01/28/24 04:54 01/28/24 04:12 01/28/24 03:06 01/28/24 02:06 01/28/24 02:00 01/28/24 01:58 01/28/24 01:44 01/28/24 01:02 01/28/24 01:00 01/28/24 00:59 01/28/24 00:09 01/27/24 23:02 01/27/24 22:24 01/27/24 22:15 01/27/24 22:06 01/27/24 21:51 01/27/24 21:45 01/27/24 21:42 01/27/24 21:39 Laboratory Results CBC 01/28/24 Range/Units 04:41 WBC 8.92 (4.8-10.8) K/ul RBC 3.71 L (4.20-5.40) M/uL Hgb 11.3 L (12.0-16.0) g/dl Hct 33.0 L (37.0-47.0) % Plt Count 281 (130-400) K/uL Comprehensive Metabolic Panel 01/28/24 Range/Units 04:41 Sodium 136 (136-145) mmol/L Potassium 4.2 (3.5-5.1) mmol/L Chloride 104 (98-107) mmol/L Carbon Dioxide 29 (21-32) mmol/L BUN 7 (6-23) mg/dl Creatinine 0.80 (0.6-1.2) mg/dl Glucose 97 (70-99(Fasting)) mg/dl Calcium 8.7 (8.6-10.3) mg/dl Intake and Output 01/27/24 01/28/24 01/28/24 22:59 06:59 14:59 Output Total 901 / 3201 475 / 3201 515 / 515 Balance -901 / -2578.083 -475 / -2578.083 -515 / -515 Output: Urine 225 / 225 Urine Amount (Catheter) 900 / 3200 475 / 3200 290 / 290 Whitlock/Indwelling 900 / 3200 475 / 3200 290 / 290 # Bowel Movements Other: Weight 48.4 kg Weight Measurement Method Built in [facility] Diagnostic Findings EKG performed today 01/28/2024 and interpreted independently: Sinus rhythm at 74 bpm, normal EKG. Previous EKG dating back to 01/26/2024, 10:21 AM which was performed before the right coronary intervention revealed transient ST segment elevation in the inferior leads and Mobitz type II second-degree AV block with 2: 1 conduction, ventricular rate 55 bpm at that time. (5) Syncope Syncope type: unspecified Qualified Code(s): R55 - Syncope and collapse (6) Mitral regurgitation Cardiac valve disease etiology: nonrheumatic Qualified Code(s): I34.0 - Nonrheumatic mitral (valve) insufficiency
[2024-01-28] MEDS: amLODIPine BESYLATE 5 MG TAB PO SCH (10:03)
[2024-01-28] MEDS: MAGNESIUM SULFATE / D5W 1 GM/100 ML BAG IV ONE (10:41)
--- NOTE | 2024-01-28 14:01 | Electroencephalogram ---
EEG Procedure Note Date of Service January 25, 2024 Start / End Times Start Time: 14:22 End Time: 14:42 Referring Physician Alondra Issa History A 48 year old female with syncope. EEG performed for evaluation of epleptiform actitiy. Home Medication List Medication Instructions Recorded Confirmed Type aspirin 81 mg tablet,delayed 81 mg PO DAILY 01/24/24 01/24/24 History release duloxetine 20 mg capsule,delayed 20 mg PO DAILY 01/24/24 01/24/24 History release ergocalciferol (vitamin D2) 1,250 1,250 mcg PO WK 01/24/24 01/24/24 History mcg (50,000 unit) capsule (Vitamin D2) multivitamin with minerals-folic 1 tab PO DAILY 01/24/24 01/24/24 History acid 200 mcg chewable tablet (Multivitamin Gummies) primidone 50 mg tablet 25 mg PO DAILY 01/24/24 01/24/24 History loratadine 10 mg tablet (Claritin) 10 mg PO DAILY PRN Allergy Symptoms 01/28/24 01/28/24 History Inpatient Medication List Acetaminophen (Acetaminophen 325 Mg Tab) 650 mg PO Q4H PRN PRN Reason: Pain or Fever Stop: 02/23/24 22:36 Last Admin: 01/27/24 19:38 Dose: 650 mg Documented By: Admin: 01/27/24 12:02 Dose: 650 mg Documented By: Admin: 01/26/24 06:04 Dose: 650 mg Documented By: Admin: 01/25/24 21:34 Dose: 650 mg Documented By: Admin: 01/25/24 14:45 Dose: 650 mg Documented By: Admin: 01/25/24 08:47 Dose: 650 mg Documented By: ARIS Al Hydrox/Mg Hydrox/Simethicone (Aluminum/Magnesium Susp 30 Ml Udc) 15 ml PO Q6H PRN PRN Reason: Indigestion Stop: 02/26/24 08:58 Last Admin: 01/28/24 07:35 Dose: 15 ml Documented By: Admin: 01/27/24 17:30 Dose: 15 ml Documented By: Admin: 01/27/24 09:12 Dose: 15 ml Documented By: THADDEUS Amlodipine Besylate (Amlodipine Besylate 5 Mg Tab) 2.5 mg PO QAM [facility] Stop: 02/27/24 09:44 Last Admin: 01/28/24 10:03 Dose: 2.5 mg Documented By: THADDEUS Aspirin (Aspirin 81 Mg Ectab) 81 mg PO DAILY COUNT INCLUDES THE [facility] Stop: 02/24/24 08:59 Last Admin: 01/28/24 08:32 Dose: 81 mg Documented By: Admin: 01/27/24 08:52 Dose: 81 mg Documented By: Admin: 01/26/24 08:31 Dose: 81 mg Documented By: Admin: 01/25/24 08:48 Dose: 81 mg Documented By: ARIS Atorvastatin Calcium (Atorvastatin 40 Mg Tab) 40 mg PO [facility] Stop: 02/27/24 08:59 Last Admin: 01/28/24 08:32 Dose: 40 mg Documented By: THADDEUS Clopidogrel Bisulfate (Clopidogrel Bisulfate 75 Mg Tab) 75 mg PO [facility] Stop: 02/26/24 08:59 Last Admin: 01/28/24 08:33 Dose: 75 mg Documented By: Admin: 01/27/24 08:52 Dose: 75 mg Documented By: THADDEUS Duloxetine HCl (Duloxetine Hcl 20 Mg Cap) 20 mg PO DAILY COUNT INCLUDES THE [facility] Stop: 02/24/24 08:59 Last Admin: 01/28/24 08:33 Dose: 20 mg Documented By: Admin: 01/27/24 08:52 Dose: 20 mg Documented By: Admin: 01/26/24 08:31 Dose: 20 mg Documented By: Admin: 01/25/24 08:48 Dose: 20 mg Documented By: ARIS Morphine Sulfate (Morphine Sulfate 2 Mg/Ml Carp) 2 mg IV Q3H PRN PRN Reason: Pain Stop: 02/07/24 21:38 Last Admin: 01/27/24 09:37 Dose: 2 mg Documented By: Admin: 01/26/24 10:28 Dose: 2 mg Documented By: TIFFANIE Nitroglycerin (Nitroglycerin Sl 0.4 Mg/Tab Tab) 0.4 mg SL Q5M PRN PRN Reason: Chest Pain Stop: 02/23/24 21:42 Last Admin: 01/26/24 10:28 Dose: 0.4 mg Documented By: Admin: 01/25/24 21:17 Dose: 0.4 mg Documented By: GENESIS Oxycodone HCl (Oxycodone Hcl Ir 5 Mg Tab (Immediate Release)) 5 mg PO Q4H PRN PRN Reason: Pain Stop: 02/07/24 21:38 Last Admin: 01/25/24 14:46 Dose: 5 mg Documented By: Admin: 01/25/24 03:49 Dose: 5 mg Documented By: AZIZA Pantoprazole Sodium (Pantoprazole 40 Mg Tab) 40 mg PO QAM COUNT INCLUDES THE [facility] Stop: 02/25/24 15:14 Last Admin: 01/28/24 08:33 Dose: 40 mg Documented By: Admin: 01/27/24 08:52 Dose: 40 mg Documented By: Admin: 01/26/24 16:55 Dose: 40 mg Documented By: THADDEUS Primidone (Primidone 50 Mg Tab) 25 mg PO DAILY COUNT INCLUDES THE [facility] Stop: 02/24/24 08:59 Last Admin: 01/28/24 08:33 Dose: 25 mg Documented By: Admin: 01/27/24 08:52 Dose: 25 mg Documented By: Admin: 01/26/24 08:31 Dose: 25 mg Documented By: Admin: 01/25/24 08:47 Dose: 25 mg Documented By: ARIS Discontinued Medications Amlodipine Besylate (Amlodipine Besylate 5 Mg Tab) 5 mg PO QAM COUNT INCLUDES THE [facility] Stop: 02/24/24 12:29 Last Admin: 01/25/24 13:42 Dose: 5 mg Documented By: ARIS Amlodipine Besylate (Amlodipine Besylate 5 Mg Tab) 5 mg PO BID COUNT INCLUDES THE [facility] Stop: 02/24/24 20:59 Last Admin: 01/27/24 08:35 Dose: Not Given Documented By: Admin: 01/26/24 21:44 Dose: 5 mg Documented By: Admin: 01/26/24 08:31 Dose: 5 mg Documented By: Admin: 01/25/24 20:59 Dose: 5 mg Documented By: GENESIS Amlodipine Besylate (Amlodipine Besylate 5 Mg Tab) 5 mg PO HS COUNT INCLUDES THE [facility] Stop: 02/26/24 20:59 Last Admin: 01/27/24 21:20 Dose: Not Given Documented By: KISHORE Aspirin (Aspirin 81 Mg Chew) Confirm Administered Dose 243 mg .ROUTE .STK-MED ONE Stop: 01/26/24 14:37 Last Admin: 01/26/24 14:40 Dose: 243 mg Documented By: [employer] SUR[employer]OR Atropine Sulfate (Atropine Sulfate 0.1 Mg/Ml 10ml Syr) Confirm Administered Dose 1 mg IV .STK-MED ONE Stop: 01/26/24 15:22 Last Admin: 01/26/24 15:33 Dose: Not Given Documented By: WRS Atropine Sulfate (Atropine Sulfate 0.1 Mg/Ml 10ml Syr) 0.5 mg IV NOW STA Stop: 01/26/24 15:29 Last Admin: 01/26/24 15:33 Dose: 0.5 mg Documented By: WRS Atropine Sulfate (Atropine Sulfate 0.1 Mg/Ml 10ml Syr) Confirm Administered Dose 1 mg IV .STK-MED ONE Stop: 01/26/24 19:59 Last Admin: 01/26/24 19:58 Dose: 0.5 mg Documented By: [id number] Calcium Carbonate (Calcium Carbonate 500 Mg Chewable Tab) 500 mg PO NOW STA Stop: 01/26/24 15:09 Last Admin: 01/26/24 16:54 Dose: 500 mg Documented By: THADDEUS Clopidogrel Bisulfate (Clopidogrel Bisulfate 300 Mg Tab) Confirm Administered Dose 600 mg .ROUTE .ST-MED ONE Stop: 01/26/24 14:37 Last Admin: 01/26/24 14:40 Dose: 600 mg Documented By: [employer] SUR[employer]YOR Diphenhydramine HCl (Diphenhydramine 50 Mg/Ml Vial) Confirm Administered Dose 50 mg .ROUTE .STK-MED ONE Stop: 01/25/24 11:12 Last Admin: 01/25/24 11:23 Dose: 25 mg Documented By: MVC Diphenhydramine HCl (Diphenhydramine 50 Mg/Ml Vial) Confirm Administered Dose 50 mg .ROUTE .STK-MED ONE Stop: 01/26/24 13:12 Last Admin: 01/26/24 14:29 Dose: 50 mg Documented By: [employer] Fentanyl Citrate (Fentanyl Citrate Pf 100 Mcg/2 Ml Vial) Confirm Administered Dose 100 mcg .ROUTE .STK-MED ONE Stop: 01/25/24 10:21 Last Increment: 01/25/24 11:22 Dose: 75 mcg Documented By: MVC Fentanyl Citrate (Fentanyl Citrate Pf 100 Mcg/2 Ml Vial) Confirm Administered Dose 100 mcg .ROUTE .STK-MED ONE Stop: 01/26/24 12:52 Last Admin: 01/26/24 14:31 Dose: 100 mcg Documented By: NNEKA Fentanyl Citrate (Fentanyl Citrate Pf 100 Mcg/2 Ml Vial) Confirm Administered Dose 100 mcg .ROUTE .STK-MED ONE Stop: 01/26/24 13:48 Last Increment: 01/26/24 14:33 Dose: 50 mcg Documented By: NNEKA Gadobutrol (Gadobutrol 65ml Vial) 4.5 ml IV ONCE ONE Stop: 01/25/24 18:00 Last Admin: 01/25/24 18:00 Dose: 4.5 ml Documented By: DELMA Heparin Sodium (Porcine) (Heparin (Porcine) 1000 Unit/Ml 10 Ml ([employer] Member Use Only)) Confirm Administered Dose 10,000 units .ROUTE .STK-MED ONE Stop: 01/25/24 10:21 Last Admin: 01/25/24 11:22 Dose: 3,500 units Documented By: FRANK Heparin Sodium (Porcine) (Heparin (Porcine) 1000 Unit/Ml 10 Ml ([employer] Member Use Only)) Confirm Administered Dose 10,000 units .ROUTE .STK-MED ONE Stop: 01/26/24 12:51 Last Admin: 01/26/24 14:35 Dose: 8,000 units Documented By: NNEKA Heparin Sodium/Sodium Chloride (Heparin In Nss Infusion 1000 Unit/500 Ml (2 U/Ml) Bag) Confirm Administered Dose 3,000 units IV .STK-MED ONE Stop: 01/25/24 10:21 Last Admin: 01/25/24 11:22 Dose: 3,000 units Documented By: ANTONIO Heparin Sodium/Sodium Chloride (Heparin In Nss Infusion 1000 Unit/500 Ml (2 U/Ml) Bag) Confirm Administered Dose 3,000 units IV .STK-MED ONE Stop: 01/26/24 12:52 Last Admin: 01/26/24 14:30 Dose: 3,000 units Documented By: NNEKA Sodium Chloride (Nss) 1,000 mls @ 999 mls/hr IV .Q1H1M [facility] Stop: 01/24/24 18:45 Last Infusion: 01/24/24 19:14 Dose: Infused Documented By: Admin: 01/24/24 17:33 Dose: 999 mls/hr Documented By: CAW Dextrose/Lactated Ringer's (D5w And Lactated Ringers) 1,000 mls @ 50 mls/hr IV .Q20H [facility] Stop: 02/24/24 00:00 Last Infusion: 01/26/24 12:30 Dose: Infused Documented By: Admin: 01/26/24 12:15 Dose: 50 mls/hr Documented By: Infusion: 01/25/24 16:11 Dose: Infused Documented By: Admin: 01/25/24 16:07 Dose: Not Given Documented By: Admin: 01/25/24 00:09 Dose: 50 mls/hr Documented By: AZIZA Magnesium Sulfate/Dextrose (Magnesium Sulfate / D5w) 1 gm in 100 mls @ 50 mls/hr IV ONE ONE Stop: 01/25/24 08:06 Last Infusion: 01/25/24 08:18 Dose: Infused Documented By: Admin: 01/25/24 06:20 Dose: 50 mls/hr Documented By: AZIZA Nitroglycerin/Dextrose (Nitroglycerin/D5w 100 Mcg/Ml) 250 mls @ 0 mls/hr IV .Q0M [facility]; Protocol Stop: 02/25/24 11:14 Last Titration: 01/27/24 09:21 Dose: Infused Documented By: Titration: 01/26/24 13:02 Dose: 0 mcg/min, 0 mls/hr Documented By: Admin: 01/26/24 12:10 Dose: 5 mcg/min, 3 mls/hr Documented By: THADDEUS Co-signed By: LILY Nitroglycerin/Dextrose (Nitroglycerin/D5w 100 Mcg/Ml) 250 mls @ 1.5 mls/hr IV .Q24H [facility]; Protocol Stop: 02/25/24 11:14 Last Admin: 01/26/24 12:52 Dose: Not Given Documented By: THADDEUS Sodium Chloride (Nss) 1,000 mls @ 10 mls/hr IV .Q24H COUNT INCLUDES THE [facility] Last Admin: 01/26/24 16:45 Dose: Not Given Documented By: THADDEUS Famotidine (Pepcid 20mg Iv Push) 20 mg in 5 mls @ 2.5 mls/min IV NOW STA Stop: 01/26/24 15:09 Last Admin: 01/26/24 15:52 Dose: 2.5 mls/min Documented By: THADDEUS Parenteral Electrolytes (Plasma-Lyte A Ph 7.4) 1,000 mls @ 125 mls/hr IV .Q8H [facility] Stop: 02/25/24 15:14 Last Infusion: 01/27/24 06:56 Dose: Infused Documented By: Admin: 01/27/24 00:16 Dose: 125 mls/hr Documented By: Infusion: 01/26/24 23:49 Dose: Infused Documented By: Admin: 01/26/24 15:49 Dose: 125 mls/hr Documented By: THADDEUS Sodium Chloride (Nss) 1,000 mls @ 999 mls/hr IV .Q1H1M ONE Stop: 01/26/24 16:28 Last Infusion: 01/26/24 17:20 Dose: Infused Documented By: Infusion: 01/26/24 15:57 Dose: 0 mls/hr Documented By: Admin: 01/26/24 15:33 Dose: 999 mls/hr Documented By: THADDEUS Magnesium Sulfate/Dextrose (Magnesium Sulfate / D5w) 1 gm in 100 mls @ 50 mls/hr IV ONE ONE Stop: 01/26/24 23:25 Last Infusion: 01/26/24 23:44 Dose: Infused Documented By: Admin: 01/26/24 21:44 Dose: 50 mls/hr Documented By: KISHORE Calcium Gluconate () 1,000 mg in 60 mls @ 240 mls/hr IV NOW STA Stop: 01/26/24 21:40 Last Infusion: 01/26/24 21:59 Dose: Infused Documented By: Admin: 01/26/24 21:44 Dose: 240 mls/hr Documented By: KISHORE Parenteral Electrolytes (Plasma-Lyte A Ph 7.4) 1,000 mls @ 125 mls/hr IV .Q8H COUNT INCLUDES THE [facility] Stop: 02/26/24 09:44 Last Infusion: 01/27/24 14:44 Dose: Infused Documented By: Admin: 01/27/24 09:45 Dose: 125 mls/hr Documented By: THADDEUS Magnesium Sulfate/Dextrose (Magnesium Sulfate / D5w) 1 gm in 100 mls @ 50 mls/hr IV NOW ONE Stop: 01/28/24 12:14 Last Infusion: 01/28/24 12:40 Dose: Infused Documented By: Admin: 01/28/24 10:41 Dose: 50 mls/hr Documented By: THADDEUS Iodixanol (Iodixanol (Visipaque) 320 Mg/Ml 100ml) Confirm Administered Dose 1 ml IV .STK-MED ONE Stop: 01/26/24 12:53 Last Admin: 01/26/24 14:33 Dose: Not Given Documented By: NNEKA Ioversol (Optiray 320 125ml) 84 ml IV ONCE ONE Stop: 01/24/24 18:13 Last Admin: 01/24/24 18:12 Dose: 84 ml Documented By: DEN Ioversol (Optiray 350) Confirm Administered Dose 1 ml .ROUTE .STK-MED ONE Stop: 01/25/24 10:22 Last Admin: 01/25/24 11:27 Dose: 60 ml Documented By: ANTONIO Ioversol (Optiray 320 125ml) 119 ml IV ONCE ONE Stop: 01/25/24 18:11 Last Admin: 01/25/24 18:11 Dose: 119 ml Documented By: BHARTI Ioversol (Optiray 350) Confirm Administered Dose 1 ml .ROUTE .STK-MED ONE Stop: 01/26/24 12:53 Last Admin: 01/26/24 14:33 Dose: 125 ml Documented By: NNEKA Ketorolac Tromethamine (Ketorolac Tromethamine 60 Mg/2 Ml Vial) [address] A Stop: 01/24/24 16:59 Last Admin: 01/24/24 17:14 Dose: 30 mg Documented By: WOODY Lisinopril (Lisinopril 2.5 Mg Tab) 2.5 mg PO NOW STA Stop: 01/24/24 21:37 Last Admin: 01/24/24 22:46 Dose: 2.5 mg Documented By: MMLeidy Midazolam HCl (Midazolam Hcl 1 Mg/Ml 2ml Vial) Confirm Administered Dose 2 mg .ROUTE .STK-MED ONE Stop: 01/25/24 10:21 Last Admin: 01/25/24 11:23 Dose: 2 mg Documented By: FRANK Midazolam HCl (Midazolam Hcl 1 Mg/Ml 2ml Vial) Confirm Administered Dose 2 mg .ROUTE .STK-MED ONE Stop: 01/25/24 11:30 Last Admin: 01/25/24 13:08 Dose: Not Given Documented By: ARIS Midazolam HCl (Midazolam Hcl 1 Mg/Ml 2ml Vial) Confirm Administered Dose 2 mg .ROUTE .STK-MED ONE Stop: 01/26/24 12:51 Last Admin: 01/26/24 14:31 Dose: 2 mg Documented By: NNEKA Midazolam HCl (Midazolam Hcl 1 Mg/Ml 2ml Vial) Confirm Administered Dose 2 mg .ROUTE .[facility] ONE Stop: 01/26/24 13:48 Last Increment: 01/26/24 14:33 Dose: 1 mg Documented By: NNEKA Nicardipine HCl (Nicardipine Hcl Inj 2.5 Mg/Ml 10 Ml Amp) Confirm Administered Dose 25 mg .ROUTE .[facility] ONE Stop: 01/25/24 10:21 Last Admin: 01/25/24 11:23 Dose: 25 mg Documented By: ANTONIO Nicardipine HCl (Nicardipine Hcl Inj 2.5 Mg/Ml 10 Ml Amp) Confirm Administered Dose 25 mg .ROUTE .[facility] ONE Stop: 01/26/24 12:52 Last Admin: 01/26/24 14:31 Dose: 25 mg Documented By: NNEKA Nitroglycerin (Nitroglycerin Sl 0.4 Mg/Tab Tab) 0.4 mg SL NOW STA Stop: 01/25/24 02:47 Last Admin: 01/25/24 03:26 Dose: 0.4 mg Documented By: AZIZA Nitroglycerin/Dextrose (Nitroglycerin/D5w 100mcg/Ml 20ml Syr) Confirm Administered Dose 2,000 mcg .ROUTE .[facility] ONE Stop: 01/26/24 12:52 Last Admin: 01/26/24 14:30 Dose: 2,000 mcg Documented By: NNEKA Norepinephrine Bitartrate (Norepinephrine/D5w 4 Mg/250 Ml) Confirm Administered Dose 4 mg IV .[facility] ONE Stop: 01/26/24 20:02 Last Admin: 01/26/24 21:12 Dose: Not Given Documented By: [id number] Oxycodone HCl (Oxycodone Hcl Ir 5 Mg Tab (Immediate Release)) 5 mg PO NOW STA Stop: 01/24/24 21:37 Last Admin: 01/24/24 22:46 Dose: 5 mg Documented By: MMLeidy Potassium Chloride (Potassium Chloride Crtab 20 Meq Tabcr) 20 meq PO NOW STA Stop: 01/25/24 06:08 Last Admin: 01/25/24 06:20 Dose: 20 meq Documented By: MMLeidy Potassium Chloride (Potassium Chloride Crtab 20 Meq Tabcr) 20 meq PO NOW STA Stop: 01/26/24 21:27 Last Admin: 01/26/24 21:44 Dose: 20 meq Documented By: KISHORE Description This is a 21 electrode EEG with a single channel dedicated to limited EKG. The electrodes were placed in accordance with the International 10-20 system. REPORT: At the onset of the EEG, the patient is awake. The background activity consist of 10-11 Hz, persistent, posteriorly dominant, moderate amplitude, symmetric and rhythmic activity that is reactive to eye opening. Anteriorly, it consist of a mixture of low voltage indeterminate activity and 15-25 Hz, persistent, low amplitude, symmetric and rhythmic activity. Stepwise intermittent photic stimulation (1-21 Hz) and hyperventilation (3 minutes, good effort) do not induce any abnormalities. Drowsiness is characterized by low amplitude mixed frequency activity, roving eye movements, and decreased eye blinking and muscle artifact. Clinical Correlation IMPRESSION: This is a normal awake and drowsy routine EEG. There is no evidence of focal slowing or epileptiform activity.
--- NOTE | 2024-01-28 16:40 | Discharge Summary ---
Discharge Summary Date of Service January 28, 2024 Principal Dx & Hospital Course #1 = Principal Diagnosis (1) Chest pain: (2) ST elevation myocardial infarction (STEMI) of inferior wall: (3) S/P right coronary artery (RCA) stent placement: (4) Coronary artery vasospasm: (5) Second degree AV block, Mobitz type II: Plan Pt is a 48yo with PMhx significant for CVA, hypertension, migraine, essential tremors, pulmonary nodules, past tobacco abuse presenting with chest pain and syncope. STEMI of inferior wall, not POA Coronary artery Vasospasm Second degree Heart Block Prinzmetal Angina CAD Chest pain associated with syncopal events, recurrent since admission Rule out ACS given patient risk factors Uncontrolled hypertension and anxiety possibly contributory History hypertension, off BP medications for about 10 years due to low BP in the past as per patient account Cardiology consulted, appreciate recs Trops initially wnl Echo noting mitral valve prolapse EKG concerning on 01/24, taken to cardiac cath, dx at time left vasospasm with noted 30% RCA stenosis Repeat episode on 01/25, EKG concerning, cardiac cath once more, noting 70% RCA stenosis, pt s/p IIS placement x1 Interventional cardiology recommending DAPT, continue coronary vasodilators, cardiac rehab, ASCVD risk factor modification Appreciate further cardiology recs, monitored in ICU post procedure -Prinzmetal angina with superimposed moderate focal stenosis of mid right coronary artery -reduced amlodipine to 5 mg nightly due to borderline hypotension. Amlodipine further reduced to 2.5mg on discharge. -DAPT for minimum of 12 months. Per Cardiology on discharge aspirin 81mg for lifetime, Plavix 75mg daily for at least 1 year -high intensity statin therapy, atorvastatin 40 mg nightly -avoid AV morelia blockers Syncope workup with Head and neck CTA, brain MRI -noted moderate stenosis of left subclavian artery, consider Vascular Surgery followup TSH, toxicology and alcohol screens negative Anxiolytic as needed Close PCP and Cardiology follow up after discharge Groin Pain R groin pain Hip and femur CT, US suggestive of AV fistula Per Interventional Cardiology, conservative management PCP and cardiology followup after discharge Urinary retention Pt with episode of urinary retention Received doses of atropine post cardiac cath for episodes of bradycardia Had wheeler placed Trial void before discharge, pt was able to void. PCP followup after discharge Dysphagia Pt states "feels like food gets stuck" going down GI followup after discharge for further evaluation hx CVA On aspirin, plavix as above migraine presenting frontal headache symptoms different from usual migraine attack continue to monitor essential tremors stable on primidone Emphysema pulmonary nodules not new finding as per patient PCP followup Notes For Next Care Provider Moderate stenosis of left subclavian artery, please ensure Vascular Surgery followup Please ensure followup with GI for dysphagia Please ensure followup with Cardiology after discharge please follow up on groin pain and urinary retention Medication Changes From Visit -aspirin 81mg daily -Plavix 75mg daily -Atorvastatin 40mg daily -amlodipine 2.5mg daily Admission HPI Per Admitting Provider History obtained from patient, family, and records. Medical history significant for CVA, hypertension, migraine, essential tremors, pulmonary nodules, past tobacco abuse. Few days history of intermittent achy chest tightness without radiation, no shortness of breath, no diaphoresis. Not related to exertion. Discomfort will lead to passing out. Admits to some family stressors. No witnessed seizures at home. Patient brought to ER by partner. Highest SBP 160s documented at the ER. Patient complaining of frontal headache symptoms. 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 Psych: Appropriate mood and affect HEENT: NC/AT Chest: Nontender to palpation. CV: RRR Resp: Breath sounds clear bilaterally, no increased effort of breathing. Abdomen: Soft, nontender, nondistended. Extremities: No edema in lower extremities bilaterally. Updated Medication List Medication Instructions Recorded Confirmed Type duloxetine 20 mg capsule,delayed 20 mg PO DAILY 01/24/24 01/24/24 History release ergocalciferol (vitamin D2) 1,250 1,250 mcg PO WK 01/24/24 01/24/24 History mcg (50,000 unit) capsule (Vitamin D2) multivitamin with minerals-folic 1 tab PO DAILY 01/24/24 01/24/24 History acid 200 mcg chewable tablet (Multivitamin Gummies) primidone 50 mg tablet 25 mg PO DAILY 01/24/24 01/24/24 History amlodipine 2.5 mg tablet 2.5 mg PO DAILY #30 tabs 01/28/24 Rx aspirin 81 mg tablet,delayed 81 mg PO DAILY #30 tabs 01/28/24 Rx release atorvastatin 40 mg tablet 40 mg PO QAM #30 tabs 01/28/24 Rx clopidogrel 75 mg tablet 75 mg PO QAM #30 tabs 01/28/24 Rx loratadine 10 mg tablet (Claritin) 10 mg PO DAILY PRN Allergy Symptoms 01/28/24 01/28/24 History Hospital Stay Data Consultations 01/24/24 19:30 ED Decision to Admit Stat 01/24/24 21:39 Consult Cardiology Routine 01/26/24 11:18 Consult Photoresist Printer Routine Procedures Performed Operation Date: 01/26/24 12:55 Actual Procedures s Cineradiography w/Routine Exam - Rajendra Rodriguez MD p Cath, Left with Cors and Vent - Rajendra oRdriguez MD s IVUS Coronary Single Vessel - Rajendra Rodriguez MD p Drug Eluting Stent SGl Vessel - Rajendra Rodriguez MD s Ultrasound Vascular Access - Rajendra Rodriguez MD Diagnostic Imagining Performed 01/24/24 17:24 CT angio chest PE protocol Stat 01/24/24 21:36 CT head/brain wo con Stat 01/25/24 10:05 CTA head w con [CT angio head w con] Urgent CTA neck with con [CT angio neck with con] Urgent MRI Brain [MR brain wo/w con] Urgent 01/25/24 10:57 CL Cath Imgs for PACS use only Routine 01/26/24 13:00 CL Cath Imgs for PACS use only Stat 01/26/24 15:00 CL IVUS Coronary Single Vessel Routine 01/26/24 20:14 CT Abdomen and Pelvis [CT abd pelvis wo con] Stat 01/27/24 09:30 US leg [US arterial duplex LE RT] Stat 01/27/24 10:12 CT femur RT wo con Stat CT hip RT wo con Stat Chest X-Ray 01/24/24 14:26 XR chest 1V portable CLINICAL HISTORY: Chest pain, nonspecific TECHNIQUE: Single frontal radiograph of the chest was obtained. Comparison: None available at the time of this dictation. FINDINGS: No lines and tubes are seen. The cardiomediastinal silhouette is normal. The lungs are clear. No evidence of pleural effusion or pneumothorax. IMPRESSION: No acute chest disease. ACT 112: Negative or not required by law. Electronically signed by: Raghu Murray M.D. 01/24/2024 5:38 PM Chest CTA 01/24/24 17:24 CT angio chest PE protocol CLINICAL HISTORY: PE TECHNIQUE: Multidetector row helical CT of the chest was performed with angiographic protocol. Coronal and sagittal reformations were obtained. Coronal and sagittal MIPS were obtained from the axial data set and were submitted for review. Automated dose lowering techniques and/or adjustment according to patient size were utilized for this exam. CT DOSE: 327.6 mGy.cm Comparison: Comparison is made to chest radiograph 01/24/2024 FINDINGS: Lungs and pleura: Diffuse centrilobular emphysema is seen most prominent in the upper lobes. There is a 6 mm nodule in the right lower lobe (series 4 image 97) and a 3 mm nodule in the right middle lobe (image 64). Heart and pericardium: Heart size is normal. No pericardial effusion. Vessels: No evidence of pulmonary embolism. Mediastinum and janet: Unremarkable. Chest wall and lower neck: Unremarkable. Abdomen: Unremarkable. Bones: Unremarkable. IMPRESSION: 1. No acute abnormality and in particular no evidence of pulmonary embolus. 2. Emphysema is seen. 3. Pulmonary nodules as above. According to Fleischner criteria, CT chest should be performed at 6-12 months. In high-risk patients, a 18-24 month follow- up is recommended, in low-risk patients, this 18-24 month follow-up CT is optional. ACT 112: Negative or not required by law. Electronically signed by: Raghu Murray M.D. 01/24/2024 6:[address] 01/24/24 21:36 Exam(s): CT HEAD Without Contrast EXAM: CT Head Without Intravenous Contrast CLINICAL HISTORY: Reason for exam: berrios, syncope. TECHNIQUE: Axial computed tomography images of the head/brain without intravenous contrast. CTDI is 37.22 mGy and DLP is 547.75 mGy-cm. Automated exposure control was utilized for the study. A dose lowering technique was utilized adhering to the principles of ALARA. COMPARISON: No relevant prior studies available. FINDINGS: No acute intracranial hemorrhage. No midline shift or mass effect. The territorial cole-white matter differentiation is maintained throughout. The ventricles and sulci are commensurate with age. The visualized orbits appear grossly unremarkable. The calvarium is intact. The visualized paranasal sinuses and mastoid air cells are grossly clear. IMPRESSION: No acute intracranial hemorrhage, midline shift, or mass effect. Electronically signed by: Cholo Nieto MD 01/24/24 22:07 PM Brain MRI 01/25/24 10:05 MRI OF THE BRAIN WITHOUT AND WITH IV CONTRAST CLINICAL HISTORY: Recurrent syncopal episodes. COMPARISON STUDY: Head CT January 24, 2024. TECHNIQUE: Utilizing a 1.5 Emiliana magnet and dedicated coil, multiplanar, multiecho imaging of the brain was performed pre and postcontrast administration. IV administration of 4.5 mL of Gadavist contrast was uneven tful. FINDINGS: There are no foci of restricted diffusion to suggest acute infarct. No acute intracranial hemorrhage, midline shift or mass effect is present. Brain volume is normal. Ventricular system is normal. Basal cisterns are patent. Flow- voids for the major intracranial vessels are present. There is no intracranial mass or pathologic enhancement. There are scattered small white matter T2 hyperintense foci. Calvarial signal is normal. No evidence for sinusitis. There is no orbital abnormality. There is no mastoid fluid. IMPRESSION: 1. No acute intracranial findings. 2. No intracranial mass or pathologic enhancement. 3. Scattered small white matter T2 hyperintense foci. These are nonspecific but may reflect sequela of migraine headaches or mild small vessel disease. ACT 112: Negative or not required by law. Electronically signed by: Xu Baig M.D. 01/25/2024 6:06 PM Head CTA 01/25/24 10:05 CTA ANGIOGRAPHY OF THE HEAD CLINICAL HISTORY: Syncope. COMPARISON STUDY: Head CT January 24, 2024 and MRI of the brain performed earlier today. TECHNIQUE: Helical axial images of the head were obtained following uneventful intravenous administration of 119 cc of Optiray. Sagittal and coronal reconstructions were viewed as well as maximal intensity projections on an independent 3-D workstation. Automated exposure control was utilized for the study. A dose lowering technique was utilized adhering to the principles of ALARA. FINDINGS: The bilateral M1, M2, A1 and A2 segments are patent. No intracranial aneurysm is present. No dissection is present. The posterior circulation is intact. No stenoses within the intracranial vessels are present. IMPRESSION: Unremarkable CTA of the head. No vessel occlusion. No intracranial aneurysm. ACT 112: Negative or not required by law. Electronically signed by: Xu Baig M.D. 01/25/2024 7:00 PM Neck CTA 01/25/24 10:05 CT ANGIOGRAPHY OF THE NECK WITH CONTRAST CLINICAL HISTORY: Syncope. COMPARISON STUDY: No previous studies for comparison. Technique: CT angiography of the carotid and vertebral arteries was obtained us ing Optiray and 3D reconstruction on an independent workstation. NASCET criteria was utilized. Automated exposure control was utilized for the study. A dose lowering technique was utilized adhering to the principles of ALARA. CT DOSE: 434.53 mGy.cm Findings: There is moderate stenosis of the proximal left subclavian artery due to noncalcified plaque. The bilateral common carotid, cervical internal carotid and vertebral arteries are patent. There is no stenosis or dissection within these vessels. There is minimal plaque within the left carotid bifurcation. Emphysema is incidentally noted within the lung apices. There is no cervical lymphadenopathy. CTA of the head will be reported separately. IMPRESSION: 1. No stenoses or dissections within the bilateral common carotid, cervical internal carotid or vertebral arteries. 2. Moderate stenosis of the proximal left subclavian artery due to noncalcified plaque. 3. Emphysema. ACT 112: Negative or not required by law. Electronically signed by: Xu Baig M.D. 01/25/2024 6:45 PM Abdomen/Pelvis CT 01/26/24 20:14 Exam(s): CT ABDOMEN + PELVIS Without Contrast EXAM: CT Abdomen and Pelvis Without Intravenous Contrast CLINICAL HISTORY: Reason for exam: abdominal tenderness, hypotension. TECHNIQUE: Axial computed tomography images of the abdomen and pelvis without intravenous contrast. CTDI is 8.86 mGy and DLP is 466.3 mGy-cm. Automated exposure control was utilized for the study. A dose lowering technique was utilized adhering to the principles of ALARA. COMPARISON: No relevant prior studies available. FINDINGS: Lung bases: Unremarkable. No mass. No consolidation. ABDOMEN: Liver: Unremarkable. Gallbladder and bile ducts: Unremarkable. No calcified stones. No ductal dilation. Pancreas: Unremarkable. No ductal dilation. Spleen: Unremarkable. No splenomegaly. Adrenals: Unremarkable. No mass. Kidneys and ureters: Unremarkable. No obstructing stones. No hydronephrosis. Stomach and bowel: Unremarkable. No obstruction. No mucosal thickening. PELVIS: Appendix: No findings to suggest acute appendicitis. Bladder: Unremarkable. No stones. Reproductive: Unremarkable as visualized. ABDOMEN and PELVIS: Intraperitoneal space: Unremarkable. No free air. No significant fluid collection. Bones/joints: Degenerative changes of the spine. No acute fracture. No dislocation. Soft tissues: Unremarkable. Vasculature: Atherosclerotic changes of the aorta. No abdominal aortic aneurysm. Lymph nodes: Unremarkable. No enlarged lymph nodes. IMPRESSION: No acute findings in the abdomen or pelvis. Electronically signed by: Cholo Nieto MD 01/26/24 23:31 PM Duplex Scan Lower Extremity Artery 01/27/24 09:30 US arterial duplex LE RT CLINICAL HISTORY: RO AV fistula TECHNIQUE: Real-time grayscale and color and spectral Doppler ultrasound imaging of the right lower extremity arteries was performed. Measurements calculated based on NASCET criteria. COMPARISON: None available at the time of this dictation. FINDINGS: Patient is status post recent common femoral artery catheterization. No pseudoaneurysm is seen. There is a possible connection between the common femoral artery and common femoral vein at the site of the catheter. There is a fluid collection superficial to the vessels measuring 3.4 x 0.9 x 1.7 cm with surrounding edema. IMPRESSION: 1. No evidence of pseudoaneurysm. There is a likely fistula between the common femoral artery and vein. 2. Surrounding edema is likely postsurgical. ACT 112: Negative or not required by law. Electronically signed by: Raghu Murray M.D. 01/27/2024 10:[address] 01/27/24 10:12 CT hip RT wo con, CT femur RT wo con CLINICAL HISTORY: Pain TECHNIQUE: Multidetector row helical CT of the right hip and right femur was performed without intravenous contrast. Coronal and sagittal reformations were obtained. Automated dose lowering techniques and/or adjustment according to patient size were utilized for this examination. CT DOSE: 604.37 mGy.cm Comparison: Comparison is made to CT abdomen pelvis 124 FINDINGS: The osseous structures are without fracture or dislocation. The joint spaces are maintained. No joint effusion is seen. A Wheeler catheter is seen. Soft tissue stranding is in the right groin. IMPRESSION: 1. No acute abnormality of the bones or intra-abdominal structures. 2. Soft tissue stranding in the right groin. Please see right lower extremity Doppler ultrasound for findings of arteriovenous fistula. ACT 112: Negative or not required by law. Electronically signed by: Raghu Murray M.D. 01/27/2024 10:[address] 01/27/24 10:12 CT hip RT wo con, CT femur RT wo con CLINICAL HISTORY: Pain TECHNIQUE: Multidetector row helical CT of the right hip and right femur was performed without intravenous contrast. Coronal and sagittal reformations were obtained. Automated dose lowering techniques and/or adjustment according to patient size were utilized for this examination. CT DOSE: 604.37 mGy.cm Comparison: Comparison is made to CT abdomen pelvis 124 FINDINGS: The osseous structures are without fracture or dislocation. The joint spaces are maintained. No joint effusion is seen. A Wheeler catheter is seen. Soft tissue stranding is in the right groin. IMPRESSION: 1. No acute abnormality of the bones or intra-abdominal structures. 2. Soft tissue stranding in the right groin. Please see right lower extremity Doppler ultrasound for findings of arteriovenous fistula. ACT 112: Negative or not required by law. Electronically signed by: Raghu Murray M.D. 01/27/2024 10:54 AM Pending Results Patient Have Any Pending Studies at Discharge: No Discharge Instructions Given to Patient (Per Discharging Provider) Sunitha, You came in with chest pain and episodes of passing out. You were seen by the flash drier operator and they believed your symptoms were related to blockages in your heart (you had a stent placed for that) as well as due to a phenomenon called Prinzmetal's Angina. Cardiology recommended discharge with the medications listed below. Please take as prescribed. -aspirin 81mg daily -Plavix 75mg daily -Atorvastatin 40mg daily -amlodipine 2.5mg daily Please keep close followup with Cardiology after discharge. Please also keep followup with a advertisement distributor for the difficulty swallowing. Your primary care provider can refer you to one. Again, please keep close follow up with your primary care provider, Cardiology, and gastroenterology after discharge. Please do not hesitate to come back to the emergency room if your symptoms worsen or return. It was a pleasure taking care of you while you were here. Total Time Total Time Spent Total Time Spent (In Minutes): 75
--- NOTE | 2024-01-29 06:03 | Electrocardiogram Report ---
Test Reason : Blood Pressure : / mmHG Vent. Rate : 055 BPM Atrial Rate : 055 BPM P-R Int : 186 ms QRS Dur : 074 ms QT Int : 396 ms P-R-T Axes : 062 078 091 degrees QTc Int : 378 ms Sinus rhythm with 2 to 1 AV block Septal infarct (cited on or before 25-JAN-2024) Inferior injury pattern ACUTE KS / STEMI Consider right ventricular involvement in acute inferior infarct Abnormal ECG When compared with ECG of 26-JAN-2024 07:23, ST elevation now present in Inferior leads ST now depressed in Lateral leads Nonspecific T wave abnormality no longer evident in Inferior leads QT has shortened 2 to 1 AV block is now present Confirmed by Jovanni Ba ([id number]) on 01/29/2024 6:03:29 AM Referred By: REFERRED SELF Confirmed By:Jovanni Ba
--- NOTE | 2024-01-29 06:05 | Electrocardiogram Report ---
Test Reason : Blood Pressure : / mmHG Vent. Rate : 069 BPM Atrial Rate : 069 BPM P-R Int : 136 ms QRS Dur : 082 ms QT Int : 422 ms P-R-T Axes : 037 063 021 degrees QTc Int : 452 ms Normal sinus rhythm Septal infarct (cited on or before 25-JAN-2024) Nonspecific T wave abnormality Abnormal ECG When compared with ECG of 26-JAN-2024 10:21, ST no longer elevated in Inferior leads 2 to 1 AV block is no longer present Confirmed by Jovanni Ba ([id number]) on 01/29/2024 6:04:59 AM Referred By: REFERRED SELF Confirmed By:Jovanni Ba
--- NOTE | 2024-01-29 21:20 | Electrocardiogram Report ---
Test Reason : Blood Pressure : / mmHG Vent. Rate : 071 BPM Atrial Rate : 071 BPM P-R Int : 130 ms QRS Dur : 088 ms QT Int : 406 ms P-R-T Axes : 043 055 041 degrees QTc Int : 441 ms Normal sinus rhythm Normal ECG When compared with ECG of 26-JAN-2024 11:12, Criteria for Septal infarct are no longer Present Confirmed by Jovanni Ba ([id number]) on 01/29/2024 9:19:32 PM Referred By: REFERRED SELF Confirmed By:Jovanni Ba
--- NOTE | 2024-01-29 21:44 | Electrocardiogram Report ---
Test Reason : Blood Pressure : / mmHG Vent. Rate : 086 BPM Atrial Rate : 086 BPM P-R Int : 126 ms QRS Dur : 082 ms QT Int : 390 ms P-R-T Axes : 058 063 063 degrees QTc Int : 466 ms Normal sinus rhythm Normal ECG When compared with ECG of 26-JAN-2024 14:54, No significant change was found Confirmed by Jovanni Ba ([id number]) on 01/29/2024 9:43:58 PM Referred By: REFERRED SELF Confirmed By:Jovanni Ba
--- NOTE | 2024-01-29 21:53 | Electrocardiogram Report ---
Test Reason : Blood Pressure : / mmHG Vent. Rate : 069 BPM Atrial Rate : 069 BPM P-R Int : 134 ms QRS Dur : 090 ms QT Int : 418 ms P-R-T Axes : 061 058 058 degrees QTc Int : 447 ms Normal sinus rhythm Normal ECG When compared with ECG of 26-JAN-2024 20:00, No significant change was found Confirmed by Jovanni Ba ([id number]) on 01/29/2024 9:52:49 PM Referred By: REFERRED SELF Confirmed By:Jovanni Ba
--- NOTE | 2024-01-30 05:46 | Electrocardiogram Report ---
Test Reason : Blood Pressure : / mmHG Vent. Rate : 074 BPM Atrial Rate : 074 BPM P-R Int : 130 ms QRS Dur : 088 ms QT Int : 386 ms P-R-T Axes : 065 073 070 degrees QTc Int : 428 ms Normal sinus rhythm Normal ECG When compared with ECG of 27-JAN-2024 06:23, No significant change was found Confirmed by Jovanni Ba ([id number]) on 01/30/2024 5:46:21 AM Referred By: REFERRED SELF Confirmed By:Jovanni Ba
== END 2024-01-28 17:15 | disposition home or self-care (01) | DRG 321 ==
LOC: ED 13:59 → 2S 13:59 → 1E 01-26 11:52
PROC: CLB.CCO (2024-01-25 10:30)

== ENCOUNTER 2024-02-08 21:18 | Inpatient (IN) ==
[2024-02-08 21:52] LABS: Basophils # (auto) 0.08 K/uL (0.00-0.20); Basophils % (auto) 1.3 %; Eosinophils % (auto) 1.6 %; Hematocrit (blood only) 32.1 % (37.0-47.0); Hemoglobin 10.4 g/dl (12.0-16.0); Immature Granulocytes # (auto) 0.08 K/uL (0.01-0.20); Immature Granulocytes % (auto) 1.3 %; Lymphocytes % (auto) 41.1 %; Mean Corpuscular Hgb Conc 32.4 g/dL (32.0-36.0); Mean Corpuscular Volume 92.5 fL (80.0-100.0); Mean Platelet Volume 9.7 fL (9.4-12.4); Monocytes # (auto) 0.49 K/uL (0.11-0.59); Neutrophils # (auto) 2.84 K/uL (1.40-6.50); Neutrophils % (auto) 46.7 %; Platelet Count 348 K/uL (130-400); RDW Standard Deviation 43.8 fL (36.4-46.3); Red Blood Count 3.47 M/uL (4.20-5.40); White Blood Count 6.09 K/ul (4.8-10.8)
[2024-02-08 22:06] LABS: Albumin Globulin Ratio 1.7 (0.9-2); Albumin Level 3.6 gm/dl (3.4-5.0); BUN Creatinine Ratio 15.5 (10-20); Bilirubin,Total 0.7 mg/dl (0.2-1.0); Calcium 7.7 mg/dl (8.6-10.3); Creatinine Clr Calc Pharmacy 50.4 ml/min; Est GFR (African American) 79.5 ml/min; Est GFR (Non-African American) 68.6 ml/min; Globulin 2.1 gm/dl (2.5-4.0); Magnesium 1.8 mg/dl (1.7-2.4); Potassium 3.9 mmol/L (3.5-5.1); Total Protein 5.7 gm/dl (6.0-8.3)
[2024-02-08 22:12] LABS: Troponin I High Sensitivity 29.3 pg/ml (0-14)
--- NOTE | 2024-02-08 22:48 | CT Scan Report ---
Exam(s): CT C SPINE EXAM: CT Cervical Spine Without Intravenous Contrast CLINICAL HISTORY: Reason for exam: found down. TECHNIQUE: Axial computed tomography images of the cervical spine without intravenous contrast. CTDI is 38 mGy and DLP is 546 mGy-cm. Automated exposure control was utilized for the study. A dose lowering technique was utilized adhering to the principles of ALARA. COMPARISON: No relevant prior studies available. FINDINGS: Vertebrae: Unremarkable. No acute fracture. No traumatic subluxation. Discs/spinal canal/neural foramina: Disc heights maintained. Right-sided facet degeneration, greatest at C2-C3. No spinal canal stenosis. Soft tissues: Unremarkable. Lungs: Septal thickening at the lung apices. IMPRESSION: 1. No acute osseous findings. 2. Septal thickening at the lung apices suggesting pulmonary edema. Electronically signed by: Barbara Pineda M.D. 02/08/24 22:47 PM
--- NOTE | 2024-02-08 22:49 | CT Scan Report ---
Exam(s): CT HEAD Without Contrast EXAM: CT Head Without Intravenous Contrast CLINICAL HISTORY: Reason for exam: found down. TECHNIQUE: Axial computed tomography images of the head/brain without intravenous contrast. CTDI is 38 mGy and DLP is 546 mGy-cm. Automated exposure control was utilized for the study. A dose lowering technique was utilized adhering to the principles of ALARA. COMPARISON: 01/24/24 FINDINGS: Brain: Unremarkable. No hemorrhage. No significant white matter disease. No edema. Cooper-white matter differentiation maintained. Ventricles: Unremarkable. No hydrocephalus. Bones/joints: Unremarkable. No acute fracture. Soft tissues: Unremarkable. Sinuses: Unremarkable as visualized. Mastoid air cells: Unremarkable as visualized. No mastoid effusion. IMPRESSION: No acute intracranial process. Electronically signed by: Barbara Pineda M.D. 02/08/24 22:48 PM
[2024-02-08 23:20] LABS: Appearance Urine Cloudy (Clear); Bacteria Urine Automated 1+ (None Seen); Bilirubin Urine Negative (Negative); Blood Urine Negative (Negative); Cast Urine Automated 0-2 /lpf (0-2); Color Urine Yellow; Glucose Urine UA 2+ (Negative); Ketones Urine Negative (Negative); Leukocyte Esterase Urine Trace (Negative); Nitrite Urine Negative (Negative); Protein Urine Trace (Negative); RBC Urine Automated 0-2 /hpf (0-2); Specific Gravity Urine 1.012 (1.000-1.030); Urobilinogen Urine Negative (Negative); pH Urine 6.5 (4.5-7.5)
--- NOTE | 2024-02-08 23:40 | Ultrasound Report ---
Exam(s): US ARTERIAL RIGHT LOWER EXTREMITY EXAM: US Duplex Right Lower Extremity Arteries CLINICAL HISTORY: Reason for exam: ro pseudoaneurysm. TECHNIQUE: Real-time duplex ultrasound scan of the right lower extremity arteries integrating B-mode two-dimensional vascular structure, Doppler spectral analysis and color flow Doppler imaging. COMPARISON: 01/27/24 FINDINGS: No pseudoaneurysm or AV fistula is identified. Image segments of the common, deep, and superficial femoral arteries appear normal. Image segments of the common, deep, and superficial femoral veins appear normal. Right iliac artery appears normal. No hematoma or fluid collection is identified. IMPRESSION: No visualized pseudoaneurysm. Electronically signed by: Barbara Pineda M.D. 02/08/24 23:39 PM
[2024-02-09] MEDS: MAGNESIUM SULFATE / D5W 1 GM/100 ML BAG IV ONE (00:05)
[2024-02-09 00:26] LABS: Partial Thromboplastin Ratio 0.9; Partial Thromboplastin Time 24 Seconds (21-31)
[2024-02-09] MEDS ORDERED: Heparin IV Adult Wt-Based Standard *NO* INITIAL Bolus Protocol IV STA (00:40)
--- NOTE | 2024-02-09 00:42 | History & Physical Report ---
Date of Service February 09, 2024 Assessment & Plan (1) NSTEMI (non-ST elevated myocardial infarction): Plan: History CAD status stent History coronary vasospasm Patient presenting with left-sided chest pain relieved by nitroglycerin at the ER Possible CHF secondary to above Syncopal event secondary to above, diarrheal illness contributory PVD valvular heart disease (moderate MR/TR) from recent confinement hx 2AV block Mobitz type II from last STEMI admission hx CVA hypertension, BP currently stable, reportedly low at home initially as per partner Transaminitis possibly from CHF, possible shock liver with reported hypotension at home, statin Rx contributory. migraine, patient complaining of usual headaches hx seizure disorder/essential tremors, on primidone maintenance as per patient Hyperglycemia rule out DM Anemia, hemoglobin stable from result at time of discharge past tobacco abuse PCU Continue antiplatelet Rx for secondary CAD prevention IV heparin Follow troponin TTE, Cardiology consult Re: NSTEMI (Patient was scheduled for outpatient follow-up with [facility] cardiology group as per preference.) N.p.o. until patient seen by cardiology in anticipation of ischemic workup Supportive management for likely viral diarrheal illness Follow LFTs, liver ultrasound if with progression, hold statin for now Check hemoglobin A1c DVT prophylaxis. IV heparin Full code Total critical care time was 45 minutes. Text document was generated using [employer] voice recognition software. It may contain grammatical or spelling errors. Kindly contact undersigned for clarification of any documentation item in question. History of Present Illness Chief Complaint: Syncope, unresponsiveness, chest pain Primary Care Provider: Wilfred Shipman MD History obtained from patient, family, and records. Medical history significant for CAD status post stent, history of coronary vasospasm, PVD (left subclavian artery stenosis on recent imaging), valvular heart disease (moderate MR/TR), second-degree AV block Mobitz type II, CVA, hypertension, migraine, seizure disorder, essential tremors, pulmonary nodules, past tobacco abuse. Recent confinement 2 weeks ago for STEMI presenting as chest pain and syncope. Moderate stenosis of the proximal left subclavian artery due to noncalcified plaque on CT imaging. TTE showed EF 55 to 60%, grade 1 diastolic dysfunction. Moderate to severe mitral insufficiency with eccentric posterior directed jet. Trace TR. 2 diagnostic cardiac catheterizations during last admission. STEMI initially attributed to coronary vasospasm later complicated by second- degree AV block, Mobitz type II and post cath small AV fistula. 70% mid RCA stenosis by IVUS on second diagnostic cardiac catheterization status post PCI/stent placement. Patient discharged on aspirin, Plavix, statin, and amlodipine Rx. Avoid AV morelia blockers as per cardiology note given second-degree AV block, Mobitz type II history. Repeat TTE recommended after 1 month follow-up study for moderate-severe MR. Hemoglobin 10-11 at time of discharge. Patient recalls having left-sided chest tightness associated with shortness of breath somewhat different from episode last month. Compliant with home medications. Unwitnessed syncopal event. Partner heard patient fall down. Patient found to be unresponsive but with pulse and breathing. Watery diarrhea without abdominal complaints. Patient later woke up confused, looking short of breath, with bilateral arm numbness/shaking as per partner. No tongue biting or urinary incontinence. Different from usual seizure attack patient describes as blank stares. SBP noted to be low upon EMS arrival as per partner. Patient currently more awake at the ER. Left-sided chest pain relieved by nitroglycerin. 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 Allergies Allergy/AdvReac Type Severity Reaction Status Date / Time mushroom Allergy Severe THROAT Verified 02/08/24 23:02 SWELLS/HIVES doxepin [From [place]] Allergy Intermediate Hives Verified 02/08/24 23:02 Home Medications Medication Instructions Recorded Confirmed Type multivitamin with minerals-folic 1 tab PO DAILY 01/24/24 02/08/24 History acid 200 mcg chewable tablet (Multivitamin Gummies) primidone 50 mg tablet 25 mg PO DAILY 01/24/24 02/08/24 History amlodipine 2.5 mg tablet 2.5 mg PO DAILY #30 tabs 01/28/24 02/08/24 Rx aspirin 81 mg tablet,delayed 81 mg PO DAILY #30 tabs 01/28/24 02/08/24 Rx release atorvastatin 40 mg tablet 40 mg PO QAM #30 tabs 01/28/24 02/08/24 Rx clopidogrel 75 mg tablet 75 mg PO QAM #30 tabs 01/28/24 02/08/24 Rx duloxetine 30 mg capsule,delayed 30 mg PO DAILY 02/08/24 02/08/24 History release galcanezumab-gnlm 120 mg/mL 120 mg subcut DIRECTED 02/08/24 02/08/24 History subcutaneous pen injector (Emgality Pen) Past Med/Surg History Problem List (Updated 02/09/24 @ 02:29 by Chris Gottlieb MD) NSTEMI (non-ST elevated myocardial infarction) Elevated troponin (Acute) Diarrhea (Acute) Syncope and collapse (Acute) ST elevation myocardial infarction (STEMI) of inferior wall S/P right coronary artery (RCA) stent placement AV fistula Suprapubic tenderness Right groin pain Pulmonary emphysema Coronary artery vasospasm Mitral regurgitation ST elevation Second degree AV block, Mobitz type II Syncope (Acute) Chest pain (Acute) Social History Smoking Status: Former smoker Tobacco Type: Cigarettes Smoking End Date: december 2022; Do You Dip or Chew Tobacco: No; Hx Alcohol Use: No Hx Substance Use: No Preferred Language: Vietnamese Communication Ability: Effective Charge Master Analyst Required: No Beliefs That Will Affect Care: None Current Living Situation: Family Current Living Situation Comment: with son Feels Safe at Home: Yes Safety Concerns: Feels Safe At This Time Assistive Devices: None Review of Systems Review of Systems: As per HPI, all other systems reviewed and negative Physical Exam Physical Exam: GENERAL: Slightly uncomfortable, slightly anxious, no respiratory distress SKIN: Pallor, warm HEENT: Pale palpebral conjunctivae, no ptosis, dry buccal mucosa NECK : Supple, no tenderness CHEST : Decreased breath sounds, no tenderness HEART : Tachycardic, systolic murmur ABDOMEN: no distention, nontender EXTREMITIES : No LE swelling/tenderness, no other conspicuous deformities noted NEUROLOGIC : Coherent, no facial asymmetry, no other gross focality Results & Data Results & Data Vital Signs (Past 12 Hours) Vital Signs Pulse Pulse Resp BP BP Pulse Ox O2 Del Method 02/08/24 23:30 95 H 16 125/74 95 Room Air 02/08/24 23:00 101 H 16 123/75 98 Room Air 02/08/24 22:39 91 H 111/78 02/08/24 21:34 98 Room Air 02/08/24 21:27 87 02/08/24 21:27 91 H 21 02/08/24 21:27 Room Air 02/08/24 21:26 Room Air 02/08/24 21: 95 H 15 119/86 Laboratory Results Laboratory Results WBC 6.09 K/ul (4.8-10.8) 02/08/24: RBC 3.47 M/uL (4.20-5.40) L 02/08/24 21: Hgb 10.4 g/dl (12.0-16.0) L 02/08/24 21: Hct 32.1 % (37.0-47.0) L 02/08/24 21: MCV 92.5 fL (80.0-100.0) 02/08/24: MCH 30.0 pg (25.0-34.0) 02/08/24: MCHC 32.4 g/dL (32.0-36.0) 02/08/24: RDW Std Deviation 43.8 fL (36.4-46.3) 02/08/24: RDW Coeff of Deric 13.0 % (11.5-14.5) 02/08/24: Plt Count 348 K/uL (130-400) 02/08/24: MPV 9.7 fL (9.4-12.4) 02/08/24: Immature Gran % (Auto) 1.3 % 02/08/24: Neut % (Auto) 46.7 % 02/08/24: Lymph % (Auto) 41.1 % 02/08/24: [place] % (Auto) 8.0 % 02/08/24: Eos % (Auto) 1.6 % 02/08/24: Baso % (Auto) 1.3 % 02/08/24: Neut # (Auto) 2.84 K/uL (1.40-6.50) 02/08/24: Lymph # (Auto) 2.50 K/uL (1.20-3.40) 02/08/24: [place] # (Auto) 0.49 K/uL (0.11-0.59) 02/08/24: Eos # (Auto) 0.10 K/uL (0.00-0.50) 02/08/24: Baso # (Auto) 0.08 K/uL (0.00-0.20) 02/08/24 21:30 Immature Gran # (Auto) 0.08 K/uL (0.01-0.20) 02/08/24 21:30 APTT 24 Seconds (21-31) 02/08/24 21:30 PTT Ratio 0.9 02/08/24 21:30 Sodium 138 mmol/L (136-145) 02/08/24 21:30 Potassium 3.9 mmol/L (3.5-5.1) 02/08/24 21:30 Chloride 108 mmol/L (98-107) H 02/08/24 21:30 Carbon Dioxide 18 mmol/L (21-32) L 02/08/24 21:30 Anion Gap 12 (3-11) H 02/08/24 21:30 BUN 15 mg/dl (6-23) 02/08/24 21:30 Creatinine 0.97 mg/dl (0.6-1.2) 02/08/24 21:30 Est Cr Clr Drug Dosing 50.4 ml/min 02/08/24 21:30 Est GFR ( Amer) 79.5 ml/min 02/08/24 21:30 Est GFR (Non-Af Amer) 68.6 ml/min 02/08/24 21:30 BUN/Creatinine Ratio 15.5 (10-20) 02/08/24 21:30 Glucose 276 mg/dl (70-99(Fasting)) H 02/08/24 21:30 Calcium 7.7 mg/dl (8.6-10.3) L 02/08/24 21:30 Magnesium 1.8 mg/dl (1.7-2.4) 02/08/24 21:30 Total Bilirubin 0.7 mg/dl (0.2-1.0) 02/08/24 21:30 AST 167 U/L (13-39) H 02/08/24 21:30 ALT 189 U/L (7-52) H 02/08/24 21:30 Alkaline Phosphatase 74 U/L (34-104) 02/08/24 21:30 Total Creatine Kinase 60 U/L (26-192) 02/08/24 21:30 Troponin I High Sens 659.6 pg/ml (0-14) H* D 02/08/24 23:14 Total Protein 5.7 gm/dl (6.0-8.3) L 02/08/24 21:30 Albumin 3.6 gm/dl (3.4-5.0) 02/08/24 21:30 Globulin 2.1 gm/dl (2.5-4.0) L 02/08/24 21:30 Albumin/Globulin Ratio 1.7 (0.9-2) 02/08/24 21:30 Lipase 57 U/L (11-82) 02/08/24 21:30 Urine Color Yellow 02/08/24 22:37 Urine Appearance Cloudy (Clear) A 02/08/24 22:37 Urine pH 6.5 (4.5-7.5) 02/08/24 22:37 Ur Specific [place] 1.012 (1.000-1.030) 02/08/24 22:37 Urine Protein Trace (Negative) H 02/08/24 22:37 Urine Glucose (UA) 2+ (Negative) H 02/08/24 22:37 Urine Ketones Negative (Negative) 02/08/24 22:37 Urine Blood Negative (Negative) 02/08/24 22:37 Urine Nitrite Negative (Negative) 02/08/24 22:37 Urine Bilirubin Negative (Negative) 02/08/24 22:37 Urine Urobilinogen Negative (Negative) 02/08/24 22:37 Ur Leukocyte Esterase Trace (Negative) H 02/08/24 22:37 Urine WBC (Auto) 11-20 /hpf (0-5) H 02/08/24 22:37 Urine RBC (Auto) 0-2 /hpf (0-2) 02/08/24 22:37 U Hyaline Cast (Auto) 0-2 /lpf (0-2) 02/08/24 22:37 U Epithel Cells (Auto) 11-20 /hpf (0-2) H 02/08/24 22:37 Urine Bacteria (Auto) 1+ (None Seen) H 02/08/24 22:[address] 02/08/24 21:32 Exam(s): CT C SPINE EXAM: CT Cervical Spine Without Intravenous Contrast CLINICAL HISTORY: Reason for exam: found down. TECHNIQUE: Axial computed tomography images of the cervical spine without intravenous contrast. CTDI is 38 mGy and DLP is 546 mGy-cm. Automated exposure control was utilized for the study. A dose lowering technique was utilized adhering to the principles of ALARA. COMPARISON: No relevant prior studies available. FINDINGS: Vertebrae: Unremarkable. No acute fracture. No traumatic subluxation. Discs/spinal canal/neural foramina: Disc heights maintained. Right-sided facet degeneration, greatest at C2-C3. No spinal canal stenosis. Soft tissues: Unremarkable. Lungs: Septal thickening at the lung apices. IMPRESSION: 1. No acute osseous findings. 2. Septal thickening at the lung apices suggesting pulmonary edema. Electronically signed by: Barbara Pineda M.D. 02/08/24 22:[address] 02/08/24 21:32 Exam(s): CT HEAD Without Contrast EXAM: CT Head Without Intravenous Contrast CLINICAL HISTORY: Reason for exam: found down. TECHNIQUE: Axial computed tomography images of the head/brain without intravenous contrast. CTDI is 38 mGy and DLP is 546 mGy-cm. Automated exposure control was utilized for the study. A dose lowering technique was utilized adhering to the principles of ALARA. COMPARISON: 01/24/24 FINDINGS: Brain: Unremarkable. No hemorrhage. No significant white matter disease. No edema. Cooper-white matter differentiation maintained. Ventricles: Unremarkable. No hydrocephalus. Bones/joints: Unremarkable. No acute fracture. Soft tissues: Unremarkable. Sinuses: Unremarkable as visualized. Mastoid air cells: Unremarkable as visualized. No mastoid effusion. IMPRESSION: No acute intracranial process. Electronically signed by: Barbara Pineda M.D. 02/08/24 22:48 PM Duplex Scan Lower Extremity Artery 02/08/24 21:38 Exam(s): US ARTERIAL RIGHT LOWER EXTREMITY EXAM: US Duplex Right Lower Extremity Arteries CLINICAL HISTORY: Reason for exam: ro pseudoaneurysm. TECHNIQUE: Real-time duplex ultrasound scan of the right lower extremity arteries integrating B-mode two-dimensional vascular structure, Doppler spectral analysis and color flow Doppler imaging. COMPARISON: 01/27/24 FINDINGS: No pseudoaneurysm or AV fistula is identified. Image segments of the common, deep, and superficial femoral arteries appear normal. Image segments of the common, deep, and superficial femoral veins appear normal. Right iliac artery appears normal. No hematoma or fluid collection is identified. IMPRESSION: No visualized pseudoaneurysm. Electronically signed by: Barbara Pineda M.D. 02/08/24 23:39 PM Diagnostic Findings EKG as per my interpretation :Rate 95, NSR, normal axis, septal infarct, no ischemia
[2024-02-09] MEDS ORDERED: oxyCODONE HCL IR 5 MG TAB (IMMEDIATE RELEASE) PO PRN (00:44)
[2024-02-09] MEDS: NITROGLYCERIN SL 0.4 MG/TAB TAB SL STA ×2 (00:47→00:48)
[2024-02-09] MEDS: SODIUM CHLORIDE 0.9% 1,000 ML IV SCH (00:48)
--- NOTE | 2024-02-09 00:55 | Emergency Department Note ---
History of Present Illness General Chief complaint: Syncope Stated complaint: SYNCOPE Time Seen by Provider: 02/08/24 21:25 History of Present Illness Provider complaint: Syncope 48-year-old female presents emergency department for syncope. Patient states earlier this evening she was mowing her grass and then became very lightheaded. She states she went into the restroom and felt like she was going to pass out so she laid down on the floor. came up to evaluate the patient and the patient was found to be unresponsive and had a bowel movement. No melena or hematochezia. states that the patient was unresponsive but quickly became responsive. Currently patient not reporting any chest pain difficulty breathing headache nausea vomiting or diarrhea. Patient recently had a cardiac stent placed. Home Medications Medication Instructions Recorded Confirmed Type multivitamin with minerals-folic 1 tab PO DAILY 01/24/24 02/08/24 History acid 200 mcg chewable tablet (Multivitamin Gummies) primidone 50 mg tablet 25 mg PO DAILY 01/24/24 02/08/24 History amlodipine 2.5 mg tablet 2.5 mg PO DAILY #30 tabs 01/28/24 02/08/24 Rx aspirin 81 mg tablet,delayed 81 mg PO DAILY #30 tabs 01/28/24 02/08/24 Rx release atorvastatin 40 mg tablet 40 mg PO QAM #30 tabs 01/28/24 02/08/24 Rx clopidogrel 75 mg tablet 75 mg PO QAM #30 tabs 01/28/24 02/08/24 Rx duloxetine 30 mg capsule,delayed 30 mg PO DAILY 02/08/24 02/08/24 History release galcanezumab-gnlm 120 mg/mL 120 mg subcut DIRECTED 02/08/24 02/08/24 History subcutaneous pen injector (Emgality Pen) Allergies Allergy/AdvReac Type Severity Reaction Status Date / Time mushroom Allergy Severe THROAT Verified 02/08/24 23:02 SWELLS/HIVES doxepin [From [place]] Allergy Intermediate Hives Verified 02/08/24 23:02 Past Med/Surg History Problem List (Updated 02/09/24 @ 00:55 by Bhavik Jimenez MD) Elevated troponin (Acute) Diarrhea (Acute) Syncope and collapse (Acute) ST elevation myocardial infarction (STEMI) of inferior wall S/P right coronary artery (RCA) stent placement AV fistula Suprapubic tenderness Right groin pain Pulmonary emphysema Coronary artery vasospasm Mitral regurgitation ST elevation Second degree AV block, Mobitz type II Syncope (Acute) Chest pain (Acute) Social History Smoking Status: Never smoker Tobacco Type: Cigarettes Do You Dip or Chew Tobacco: No; Hx Alcohol Use: No Hx Substance Use: No Preferred Language: Bengali Communication Ability: Effective Sql Ssrs Developer Required: No Beliefs That Will Affect Care: None Current Living Situation: Family Current Living Situation Comment: with son Feels Safe at Home: Yes Assistive Devices: None Physical Exam Vital Signs Vital Signs - 24 hr 02/08/24 21:21 02/08/24 21:26 02/08/24 21:27 Pulse Rate 95 H Pulse Rate [Finger] Pulse Rate from SpO2 Sensor Respiratory Rate 15 Blood Pressure 119/86 Blood Pressure [Right Arm] Blood Pressure Mean 97 Blood Pressure Mean [Right Arm] Pulse Oximetry Oxygen Delivery Method Room Air Room Air Sepsis New/Unexplained Change in Mental Status N/A Sepsis Action Taken by Nursing No Action Required 02/08/24 21:27 02/08/24 21:27 02/08/24 21:34 Pulse Rate 91 H 87 Pulse Rate [Finger] Pulse Rate from SpO2 Sensor Respiratory Rate 21 Blood Pressure Blood Pressure [Right Arm] Blood Pressure Mean Blood Pressure Mean [Right Arm] Pulse Oximetry 98 Oxygen Delivery Method Room Air Sepsis New/Unexplained Change in Mental Status Sepsis Action Taken by Nursing 02/08/24 22:39 02/08/24 23:00 02/08/24 23:30 Pulse Rate 101 H 95 H Pulse Rate [Finger] 91 H Pulse Rate from SpO2 Sensor 95 H Respiratory Rate 16 16 Blood Pressure 123/75 125/74 Blood Pressure [Right Arm] 111/78 Blood Pressure Mean 91 84 Blood Pressure Mean [Right Arm] 89 Pulse Oximetry 98 95 Oxygen Delivery Method Room Air Room Air Sepsis New/Unexplained Change in Mental Status Sepsis Action Taken by Nursing 02/08/24 23:57 02/09/24 00:51 02/09/24 00:57 Pulse Rate 96 H 103 H Pulse Rate [Finger] Pulse Rate from SpO2 Sensor 96 H 114 H Respiratory Rate 16 18 Blood Pressure 127/83 122/84 144/94 H Blood Pressure [Right Arm] Blood Pressure Mean 97 103 110 Blood Pressure Mean [Right Arm] Pulse Oximetry 95 97 Oxygen Delivery Method Room Air Room Air Sepsis New/Unexplained Change in Mental Status Sepsis Action Taken by Nursing 02/09/24 01:00 Pulse Rate 106 H Pulse Rate [Finger] Pulse Rate from SpO2 Sensor 108 H Respiratory Rate 16 Blood Pressure Blood Pressure [Right Arm] Blood Pressure Mean Blood Pressure Mean [Right Arm] Pulse Oximetry 97 Oxygen Delivery Method Room Air Sepsis New/Unexplained Change in Mental Status Sepsis Action Taken by Nursing Physical Exam GENERAL: She is oriented to person, place, and time. She appears well-developed and well-nourished. She does not appear distressed. HENT: Exam performed. -Head: Normocephalic and atraumatic. -Right Ear: External ear normal. No mastoid erythema -Left Ear: External ear normal. No mastoid erythema -Mouth/Throat: The oropharynx is clear and moist. No trismus in the jaw. No dental abscesses or uvula swelling. No oropharyngeal exudate or tonsillar abscesses. EYES: Conjunctivae and EOM are normal. Pupils are equal, round, and reactive to light. Right eye exhibits no discharge. Left eye exhibits no discharge. No scleral icterus. NECK: Normal range of motion. Neck supple. No JVD present. No spinous process tenderness present. No carotid bruit present. No rigidity. No tracheal deviation and normal range of motion present. No Brudzinski's sign and no Kernig's sign noted. CV: Normal rate, regular rhythm, normal heart sounds and intact distal pulses. There is no peripheral edema. Palpable radial pulses bue. PULM/CHEST: Effort normal and breath sounds normal. No respiratory distress. No stridor. She has no wheezes. She has no rales. -Chest Wall: She exhibits no tenderness. ABD: The abdomen is soft. Bowel sounds are normal. She has no distension. No mass is present. There is no tenderness. There is no rebound, no guarding, no Holder's sign and no tenderness at McBurney's point. Rovsig negative MUSC/SKEL: Normal range of motion. There is no peripheral edema, tenderness or deformity. Palpable femoral pulses bilaterally. LYMPH: No cervical adenopathy. NEURO: She is alert and oriented to person, place, and time. She has normal strength. No cranial nerve deficit or sensory deficit. Coordination and gait normal. GCS eye subscore is 4. GCS verbal subscore is 5. GCS motor subscore is 6. Cerebellar tests wnl. SKIN: Ecchymosis in the right groin. PSYCH: She has a normal mood and affect. Behavior is normal. Judgment and thought content normal. Course Course 2124: The patient was evaluated in room B7. A complete history and physical exam was performed Cardiac monitoring: An order was placed for continuous cardiac monitoring. The monitor shows a rate of 90 with sinus rhythm interpreted by me 2340: Vital signs stable. Labs show a hemoglobin of 10.4. Calcium 7.7. High- sensitivity troponin 29.3 down from 153.9 12 days ago.Patient has recurrent diarrheal episodes. Stool BioFire and C. difficile sent off. Patient states she wants to be discharged to go to [place] as scheduled tomorrow. I explained to her that I would probably not be the best plan and that the patient should be admitted. Imaging was within normal limits. After discussion patient is agreement for admission. Patient [facility] be [facility] team. 0011: High-sensitivity troponin repeat 659.6. Patient reporting no chest pain. Repeat EKG shows no STEMI. Discussed case with cardiology on-call Dr. Pritchard states no heparin at this time. Administered Medications Heparin Sodium/Dextrose (Heparin Sodium/Dextrose) 25,000 units in 500 mls @ 17 mls/hr IV .Q24H [facility]; Protocol Stop: 03/10/24 00:59 Last Admin: 02/09/24 01:15 Dose: 850 units/hr, 17 mls/hr Documented By: VIMAL Co-signed By: JOSE ENRIQUE Albumin Human (Albumin 25%) 25 gm in 100 mls @ 50 mls/hr IV ONE ONE Stop: 02/09/24 02:39 Last Admin: 02/09/24 01:05 Dose: 50 mls/hr Documented By: VIMAL Discontinued Medications Magnesium Sulfate/Dextrose (Magnesium Sulfate / D5w) 1 gm in 100 mls @ 50 mls/hr IV ONE ONE Stop: 02/09/24 01:49 Last Admin: 02/09/24 00:05 Dose: 50 mls/hr Documented By: VIMAL Sodium Chloride (Nss) 1,000 mls @ 125 mls/hr IV .Q8H [facility] Stop: 03/10/24 00:14 Last Admin: 02/09/24 00:48 Dose: Not Given Documented By: VIMAL Loperamide HCl (Loperamide Hcl 2 Mg Cap) 2 mg PO NOW STA Stop: 02/09/24 01:28 Last Admin: 02/09/24 01:46 Dose: 2 mg Documented By: VIMAL Nitroglycerin (Nitroglycerin Sl 0.4 Mg/Tab Tab) 0.4 mg SL NOW STA Stop: 02/09/24 00:16 Last Admin: 02/09/24 00:48 Dose: Not Given Documented By: VIMAL Nitroglycerin (Nitroglycerin Sl 0.4 Mg/Tab Tab) 0.4 mg SL NOW STA Stop: 02/09/24 00:38 Last Admin: 02/09/24 00:47 Dose: 0.4 mg Documented By: VIMAL Ondansetron HCl (Ondansetron Inj 2 Mg/Ml 2 Ml Vial) 4 mg IV NOW STA Stop: 02/09/24 00:58 Last Admin: 02/09/24 01:04 Dose: 4 mg Documented By: VIMAL Ondansetron HCl (Ondansetron Inj 2 Mg/Ml 2 Ml Vial) Confirm Administered Dose 4 mg .ROUTE .STK-MED ONE Stop: 02/09/24 00:58 Last Admin: 02/09/24 01:16 Dose: Not Given Documented By: VIMAL Potassium Chloride (Potassium Chloride Crtab 20 Meq Tabcr) 20 meq PO NOW STA Stop: 02/09/24 01:29 Last Admin: 02/09/24 01:46 Dose: 20 meq Documented By: VIMAL Medical Decision Making Laboratory Data Attestation: I reviewed the patient's lab results. 02/08/24 21:30 02/08/24 21:30 Lab Results 02/08/24 02/08/24 02/08/24 Range/Units 21:30 22:37 23:14 WBC 6.09 (4.8-10.8) K/ul RBC 3.47 L (4.20-5.40) M/uL Hgb 10.4 L (12.0-16.0) g/dl Hct 32.1 L (37.0-47.0) % MCV 92.5 (80.0-100.0) fL MCH 30.0 (25.0-34.0) pg MCHC 32.4 (32.0-36.0) g/dL RDW Std Deviation 43.8 (36.4-46.3) fL RDW Coeff of Deric 13.0 (11.5-14.5) % Plt Count 348 (130-400) K/uL MPV 9.7 (9.4-12.4) fL Immature Gran % (Auto) 1.3 % Neut % (Auto) 46.7 % Lymph % (Auto) 41.1 % Blount % (Auto) 8.0 % Eos % (Auto) 1.6 % Baso % (Auto) 1.3 % Neut # (Auto) 2.84 (1.40-6.50) K/uL Lymph # (Auto) 2.50 (1.20-3.40) K/uL Blount # (Auto) 0.49 (0.11-0.59) K/uL Eos # (Auto) 0.10 (0.00-0.50) K/uL Baso # (Auto) 0.08 (0.00-0.20) K/uL Immature Gran # (Auto) 0.08 (0.01-0.20) K/uL APTT 24 (21-31) Seconds PTT Ratio 0.9 Sodium 138 (136-145) mmol/L Potassium 3.9 (3.5-5.1) mmol/L Chloride 108 H (98-107) mmol/L Carbon Dioxide 18 L (21-32) mmol/L Anion Gap 12 H (3-11) BUN 15 (6-23) mg/dl Creatinine 0.97 (0.6-1.2) mg/dl Est Cr Clr Drug Dosing 50.4 ml/min Est GFR ( Amer) 79.5 ml/min Est GFR (Non-Af Amer) 68.6 ml/min BUN/Creatinine Ratio 15.5 (10-20) Glucose 276 H (70-99(Fasting)) mg/dl Calcium 7.7 L (8.6-10.3) mg/dl Magnesium 1.8 (1.7-2.4) mg/dl Total Bilirubin 0.7 (0.2-1.0) mg/dl AST 167 H (13-39) U/L ALT 189 H (7-52) U/L Alkaline Phosphatase 74 (34-104) U/L Total Creatine Kinase 60 (26-192) U/L Troponin I High Sens 29.3 H 659.6 H* D (0-14) pg/ml Total Protein 5.7 L (6.0-8.3) gm/dl Albumin 3.6 (3.4-5.0) gm/dl Globulin 2.1 L (2.5-4.0) gm/dl Albumin/Globulin Ratio 1.7 (0.9-2) Lipase 57 (11-82) U/L Urine Color Yellow Urine Appearance Cloudy A (Clear) Urine pH 6.5 (4.5-7.5) Ur Specific Maysel 1.012 (1.000-1.030) Urine Protein Trace H (Negative) Urine Glucose (UA) 2+ H (Negative) Urine Ketones Negative (Negative) Urine Blood Negative (Negative) Urine Nitrite Negative (Negative) Urine Bilirubin Negative (Negative) Urine Urobilinogen Negative (Negative) Ur Leukocyte Esterase Trace H (Negative) Urine WBC (Auto) 11-20 H (0-5) /hpf Urine RBC (Auto) 0-2 (0-2) /hpf U Hyaline Cast (Auto) 0-2 (0-2) /lpf U Epithel Cells (Auto) 11-20 H (0-2) /hpf Urine Bacteria (Auto) 1+ H (None Seen) Stl C. cayetanensis PCR (NotDetected) Stool Rotavirus A PCR (NotDetected) Stl Adenov F 40/41 PCR (NotDetected) Stool Astrovirus (PCR) (NotDetected) Stool Campylobacter PCR (NotDetected) Stl C. diff Tox B Gene (Neg) Stool Cryptosporidium PCR (NotDetected) Stl E.coli Shiga Tox PCR (NotDetected) Stl Enterotoxigenic E PCR (NotDetected) Stool EPEC (PCR) (NotDetected) Stool EAEC (PCR) (NotDetected) Stl E. histolytica PCR (NotDetected) Stool Giardia Lamblia PCR (NotDetected) Stool Salmonella PCR (NotDetected) Stool Sapovirus (PCR) (NotDetected) Stl P. shigelloides PCR (NotDetected) Stl Shigella/EIEC PCR (NotDetected) St Y.enterocolitica PCR (NotDetected) Stool Vibrio (PCR) (NotDetected) Stl Vibrio cholerae PCR (NotDetected) Stl Norovirus GI/GII PCR (NotDetected) 02/08/24 Range/Units 23:31 WBC (4.8-10.8) K/ul RBC (4.20-5.40) M/uL Hgb (12.0-16.0) g/dl Hct (37.0-47.0) % MCV (80.0-100.0) fL MCH (25.0-34.0) pg MCHC (32.0-36.0) g/dL RDW Std Deviation (36.4-46.3) fL RDW Coeff of Deric (11.5-14.5) % Plt Count (130-400) K/uL MPV (9.4-12.4) fL Immature Gran % (Auto) % Neut % (Auto) % Lymph % (Auto) % Blount % (Auto) % Eos % (Auto) % Baso % (Auto) % Neut # (Auto) (1.40-6.50) K/uL Lymph # (Auto) (1.20-3.40) K/uL Blount # (Auto) (0.11-0.59) K/uL Eos # (Auto) (0.00-0.50) K/uL Baso # (Auto) (0.00-0.20) K/uL Immature Gran # (Auto) (0.01-0.20) K/uL APTT (21-31) Seconds PTT Ratio Sodium (136-145) mmol/L Potassium (3.5-5.1) mmol/L Chloride (98-107) mmol/L Carbon Dioxide (21-32) mmol/L Anion Gap (3-11) BUN (6-23) mg/dl Creatinine (0.6-1.2) mg/dl Est Cr Clr Drug Dosing ml/min Est GFR ( Amer) ml/min Est GFR (Non-Af Amer) ml/min BUN/Creatinine Ratio (10-20) Glucose (70-99(Fasting)) mg/dl Calcium (8.6-10.3) mg/dl Magnesium (1.7-2.4) mg/dl Total Bilirubin (0.2-1.0) mg/dl AST (13-39) U/L ALT (7-52) U/L Alkaline Phosphatase (34-104) U/L Total Creatine Kinase (26-192) U/L Troponin I High Sens (0-14) pg/ml Total Protein (6.0-8.3) gm/dl Albumin (3.4-5.0) gm/dl Globulin (2.5-4.0) gm/dl Albumin/Globulin Ratio (0.9-2) Lipase (11-82) U/L Urine Color Urine Appearance (Clear) Urine pH (4.5-7.5) Ur Specific Maysel (1.000-1.030) Urine Protein (Negative) Urine Glucose (UA) (Negative) Urine Ketones (Negative) Urine Blood (Negative) Urine Nitrite (Negative) Urine Bilirubin (Negative) Urine Urobilinogen (Negative) Ur Leukocyte Esterase (Negative) Urine WBC (Auto) (0-5) /hpf Urine RBC (Auto) (0-2) /hpf U Hyaline Cast (Auto) (0-2) /lpf U Epithel Cells (Auto) (0-2) /hpf Urine Bacteria (Auto) (None Seen) Stl C. cayetanensis PCR Not Detected (NotDetected) Stool Rotavirus A PCR Not Detected (NotDetected) Stl Adenov F 40/41 PCR Not Detected (NotDetected) Stool Astrovirus (PCR) Not Detected (NotDetected) Stool Campylobacter PCR Not Detected (NotDetected) Stl C. diff Tox B Gene Negative Cdiff Gene (Neg) Stool Cryptosporidium PCR Not Detected (NotDetected) Stl E.coli Shiga Tox PCR Not Detected (NotDetected) Stl Enterotoxigenic E PCR Not Detected (NotDetected) Stool EPEC (PCR) Not Detected (NotDetected) Stool EAEC (PCR) Not Detected (NotDetected) Stl E. histolytica PCR Not Detected (NotDetected) Stool Giardia Lamblia PCR Not Detected (NotDetected) Stool Salmonella PCR Not Detected (NotDetected) Stool Sapovirus (PCR) Not Detected (NotDetected) Stl P. shigelloides PCR Not Detected (NotDetected) Stl Shigella/EIEC PCR Not Detected (NotDetected) St Y.enterocolitica PCR Not Detected (NotDetected) Stool Vibrio (PCR) Not Detected (NotDetected) Stl Vibrio cholerae PCR Not Detected (NotDetected) Stl Norovirus GI/GII PCR Not Detected (NotDetected) Imaging Data Attestation: I personally reviewed and interpreted this imaging study as follows: My Impression: Chest x-ray negative. Airway clear. No pneumothorax. No consolidation. No cardiomegaly or cephalization.. No free air under the diaphragm. No fractures of the skeletal structures. Radiologist's Impression: Cervical Spine CT 02/08/24 21:32 Exam(s): CT C SPINE EXAM: CT Cervical Spine Without Intravenous Contrast CLINICAL HISTORY: Reason for exam: found down. TECHNIQUE: Axial computed tomography images of the cervical spine without intravenous contrast. CTDI is 38 mGy and DLP is 546 mGy-cm. Automated exposure control was utilized for the study. A dose lowering technique was utilized adhering to the principles of ALARA. COMPARISON: No relevant prior studies available. FINDINGS: Vertebrae: Unremarkable. No acute fracture. No traumatic subluxation. Discs/spinal canal/neural foramina: Disc heights maintained. Right-sided facet degeneration, greatest at C2-C3. No spinal canal stenosis. Soft tissues: Unremarkable. Lungs: Septal thickening at the lung apices. IMPRESSION: 1. No acute osseous findings. 2. Septal thickening at the lung apices suggesting pulmonary edema. Electronically signed by: Barbara Pineda M.D. 02/08/24 22:[address] 02/08/24 21:32 Exam(s): CT HEAD Without Contrast EXAM: CT Head Without Intravenous Contrast CLINICAL HISTORY: Reason for exam: found down. TECHNIQUE: Axial computed tomography images of the head/brain without intravenous contrast. CTDI is 38 mGy and DLP is 546 mGy-cm. Automated exposure control was utilized for the study. A dose lowering technique was utilized adhering to the principles of ALARA. COMPARISON: 01/24/24 FINDINGS: Brain: Unremarkable. No hemorrhage. No significant white matter disease. No edema. Cooper-white matter differentiation maintained. Ventricles: Unremarkable. No hydrocephalus. Bones/joints: Unremarkable. No acute fracture. Soft tissues: Unremarkable. Sinuses: Unremarkable as visualized. Mastoid air cells: Unremarkable as visualized. No mastoid effusion. IMPRESSION: No acute intracranial process. Electronically signed by: Barbara Pineda M.D. 02/08/24 22:48 PM Duplex Scan Lower Extremity Artery 02/08/24 21:38 Exam(s): US ARTERIAL RIGHT LOWER EXTREMITY EXAM: US Duplex Right Lower Extremity Arteries CLINICAL HISTORY: Reason for exam: ro pseudoaneurysm. TECHNIQUE: Real-time duplex ultrasound scan of the right lower extremity arteries integrating B-mode two-dimensional vascular structure, Doppler spectral analysis and color flow Doppler imaging. COMPARISON: 01/27/24 FINDINGS: No pseudoaneurysm or AV fistula is identified. Image segments of the common, deep, and superficial femoral arteries appear normal. Image segments of the common, deep, and superficial femoral veins appear normal. Right iliac artery appears normal. No hematoma or fluid collection is identified. IMPRESSION: No visualized pseudoaneurysm. Electronically signed by: Barbara Pineda M.D. 02/08/24 23:39 PM ECG Data Attestation: I personally reviewed and interpreted this ECG as follows: Additional Comments: EKG #1 at 2125: Sinus rhythm with a rate of 94. TX QRS and QTc intervals within normal limits. No ST elevation or ST depression. EKG #2 at 0008: Sinus rhythm with a rate of 99. TX 144 QRS [address] elevation or ST depression MDM Narrative 2125: The patient was evaluated in room B7. A complete history and physical exam was performed Cardiac monitoring: An order was placed for continuous cardiac monitoring. The monitor shows a rate of 90 with sinus rhythm interpreted by me 2340: Vital signs stable. Labs show a hemoglobin of 10.4. Calcium 7.7. High- sensitivity troponin 29.3 down from 153.9 12 days ago.Patient has recurrent diarrheal episodes. Stool BioFire and C. difficile sent off. Patient states she wants to be discharged to go to [place] as scheduled tomorrow. I explained to her that I would probably not be the best plan and that the patient should be admitted. Imaging was within normal limits. After discussion patient is agreement for admission. Patient will be admitted to the [facility] team. 0011: High-sensitivity troponin repeat 659.6. Patient reporting no chest pain. Repeat EKG shows no STEMI. Discussed case with cardiology on-call Dr. Pritchard states no heparin at this time. Impression & Plan Syncope and collapse, Diarrhea, Elevated troponin Discharge Plan Visit Data Chief Complaint: Syncope Stated Complaint: SYNCOPE ED Provider: Bhavik Jimenez Discharge Problem: Syncope and collapse, Diarrhea, Elevated troponin Patient Disposition: Being Evaluated by Hospitalist Forms Stand Alone Forms: My [facility] Prescriptions Prescriptions: No Action primidone 50 mg tablet 25 mg PO DAILY multivit with min-folic acid [Multivitamin Gummies] 200 mcg Tablet,Chewable 1 tab PO DAILY clopidogrel 75 mg Tablet 75 mg PO QAM Qty: 30 0RF amlodipine 2.5 mg tablet 2.5 mg PO DAILY Qty: 30 0RF atorvastatin 40 mg Tablet 40 mg PO QAM Qty: 30 0RF aspirin 81 mg Tablet,Delayed Release (Dr/Ec) 81 mg PO DAILY Qty: 30 0RF duloxetine 30 mg capsule,delayed release(DR/EC) 30 mg PO DAILY Emgality Pen 120 mg/mL pen injector 120 mg SUBCUT DIRECTED Referrals Referrals: Wilfred Shipman MD [Primary Care Provider] - Discharge Problem: Diarrhea Qualifiers: Diarrhea type: unspecified type Qualified Code(s): R19.7 - Diarrhea, unspecified
[2024-02-09] MEDS: ONDANSETRON INJ 2 MG/ML 2 ML VIAL IV STA (01:04)
[2024-02-09] MEDS: ALBUMIN 25% 25 GM/100 ML VIAL IV ONE (01:05)
[2024-02-09] MEDS: HEPARIN SODIUM/DEXTROSE 25,000 UNITS/500 ML BAG IV SCH (01:15)
[2024-02-09] MEDS: ONDANSETRON INJ 2 MG/ML 2 ML VIAL ONE (01:16)
[2024-02-09] MEDS ORDERED: LORazepam 0.5 MG TAB PO PRN (01:20)
[2024-02-09] MEDS ORDERED: MoRPHine SULFATE 2 MG/ML CARP IV PRN (01:20)
[2024-02-09] MEDS ORDERED: NITROGLYCERIN SL 0.4 MG/TAB TAB SL PRN (01:20)
[2024-02-09 01:23] LABS: Adenovirus F 40/41 PCR Not Detected (NotDetected); Astrovirus PCR Not Detected (NotDetected); Campylobacter PCR Not Detected (NotDetected); Cryptosporidium PCR Not Detected (NotDetected); Cyclospora cayetanensis PCR Not Detected (NotDetected); Entamoeba histolytica PCR Not Detected (NotDetected); Enteroaggregative E.coli(EAEC) Not Detected (NotDetected); Enteropathogenic E.coli (EPEC) Not Detected (NotDetected); Enterotoxigenic E.coli (ETEC) Not Detected (NotDetected); Giardia lamblia PCR Not Detected (NotDetected); Norovirus GI/GII PCR Not Detected (NotDetected); Plesiomonas shigelloides PCR Not Detected (NotDetected); Rotavirus A PCR Not Detected (NotDetected); Salmonella PCR Not Detected (NotDetected); Sapovirus PCR Not Detected (NotDetected); Shiga-like Toxin E.coli (STEC) Not Detected (NotDetected); Shigella/Enteroinvasive E.coli Not Detected (NotDetected); Vibrio cholerae PCR Not Detected (NotDetected); Vibrio species PCR Not Detected (NotDetected); Yersinia enterocolitica PCR Not Detected (NotDetected)
[2024-02-09] MEDS ORDERED: PROMETHAZINE HCL 6.25 MG in SODIUM CHLORIDE 0.9% 50 ML IV PRN (01:24)
[2024-02-09] MEDS ORDERED: LOPERAMIDE HCL 2 MG CAP PO PRN (01:27)
[2024-02-09] MEDS: LOPERAMIDE HCL 2 MG CAP PO STA (01:46)
[2024-02-09] MEDS: POTASSIUM CHLORIDE CRTAB 20 MEQ TABCR PO STA (01:46)
[2024-02-09 02:16] LABS: Amphetamines+Metham, Urine Neg (Neg); Barbiturates, Urine Neg (Neg); Benzodiazepine, Urine Neg (Neg); Cocaine, Urine Neg (Neg); Fentanyl, Urine Neg (Neg); MDMA (Ecstacy), Urine Neg (Neg); Marijuana, Urine Neg (Neg); Methadone, Urine Neg (Neg); Opiate, Urine Neg (Neg); Phencyclidine, Urine Neg (Neg)
[2024-02-09 02:52] LABS: Adenovirus PCR Not Detected (NotDetected); Bordetella parapertussis PCR Not Detected (NotDetected); Bordetella pertussis PCR Not Detected (NotDetected); Chlamydia pneumoniae PCR Not Detected (NotDetected); Coronavirus 229E PCR Not Detected (NotDetected); Coronavirus CoV-2 (COVID19)PCR Not Detected (NotDetected); Coronavirus HKU1 PCR Not Detected (NotDetected); Coronavirus NL63 PCR Not Detected (NotDetected); Coronavirus OC43PCR Not Detected (NotDetected); Human Metapneumovirus PCR Not Detected (NotDetected); Influenza A PCR Not Detected (NotDetected); Influenza B PCR Not Detected (NotDetected); Mycoplasma pneumoniae PCR Not Detected (NotDetected); Parainfluenza Virus 1 PCR Not Detected (NotDetected); Parainfluenza Virus 2 PCR Not Detected (NotDetected); Parainfluenza Virus 3 PCR Not Detected (NotDetected); Parainfluenza Virus 4 PCR Not Detected (NotDetected); Respiratory Syncytial VirusPCR Not Detected (NotDetected); Rhinovirus/Enterovirus PCR Not Detected (NotDetected)
[2024-02-09 04:30] LABS: Basophils # (auto) 0.05 K/uL (0.00-0.20); Basophils % (auto) 0.4 %; Hematocrit (blood only) 31.7 % (37.0-47.0); Hemoglobin 10.7 g/dl (12.0-16.0); Immature Granulocytes # (auto) 0.04 K/uL (0.01-0.20); Immature Granulocytes % (auto) 0.3 %; Lymphocytes # (auto) 1.01 K/uL (1.20-3.40); Lymphocytes % (auto) 8.4 %; Mean Corpuscular Hgb Conc 33.8 g/dL (32.0-36.0); Mean Corpuscular Volume 88.8 fL (80.0-100.0); Mean Platelet Volume 9.7 fL (9.4-12.4); Monocytes # (auto) 0.56 K/uL (0.11-0.59); Monocytes % (auto) 4.7 %; Neutrophils # (auto) 10.32 K/uL (1.40-6.50); Neutrophils % (auto) 86.2 %; Platelet Count 349 K/uL (130-400); RDW Coefficient of Variation 12.9 % (11.5-14.5); RDW Standard Deviation 42.1 fL (36.4-46.3); Red Blood Count 3.57 M/uL (4.20-5.40); White Blood Count 11.98 K/ul (4.8-10.8)
[2024-02-09 04:46] LABS: Albumin Globulin Ratio 1.9 (0.9-2); Albumin Level 4.5 gm/dl (3.4-5.0); BUN Creatinine Ratio 21.7 (10-20); Bilirubin,Total 0.8 mg/dl (0.2-1.0); Creatinine Clr Calc Pharmacy 70.8 ml/min; Est GFR (African American) 118.5 ml/min; Est GFR (Non-African American) 102.2 ml/min; Globulin 2.4 gm/dl (2.5-4.0); Potassium 3.7 mmol/L (3.5-5.1); Total Protein 6.9 gm/dl (6.0-8.3)
[2024-02-09 04:56] LABS: Troponin I High Sensitivity 1755.7 pg/ml (0-14)
--- NOTE | 2024-02-09 07:15 | Hospitalist Progress Note ---
Date of Service February 09, 2024 Assessment & Plan (1) NSTEMI (non-ST elevated myocardial infarction): Plan Pt is a 48yoF with PMHx significant for CAD status post stent, history of coronary vasospasm, PVD (left subclavian artery stenosis on recent imaging), valvular heart disease (moderate MR/TR), second-degree AV block Mobitz type II, CVA, hypertension, migraine, seizure disorder, essential tremors, pulmonary nodules presenting with syncopal episode and chest pain once more. NSTEMI History CAD s/p stent placement History coronary vasospasm Hx of Mobitz type II heart block Patient presenting with left-sided chest pain relieved by nitroglycerin at the ER Recent confinement 2 weeks ago for STEMI presenting as chest pain and syncope. Moderate stenosis of the proximal left subclavian artery due to noncalcified plaque on CT imaging. TTE showed EF 55 to 60%, grade 1 diastolic dysfunction. Moderate to severe mitral insufficiency with eccentric posterior directed jet. Trace TR. 2 diagnostic cardiac catheterizations during last admission. STEMI initially attributed to coronary vasospasm later complicated by second- degree AV block, Mobitz type II and post cath small AV fistula. 70% mid RCA stenosis by IVUS on second diagnostic cardiac catheterization status post PCI/stent placement. Patient was discharged on aspirin, Plavix, statin, and amlodipine Rx. cardiology recommended avoiding AV morelia blockers given second-degree AV block, Mobitz type II history. Repeat TTE recommended after 1 month follow-up study for moderate-severe MR. This admission, EKG with NSR, incomplete RBBB, prolonged QT Troponin elevation of 29.3 to 659.6 to 1755.7 Repeat Echo [facility] consulted per pt preference, appreciate recs -s/p cardiac cath once more on 02/08, RCA stent patent, left main ostial culprit -continue Plavix and aspirin -continue amlodipine -syncope likely due to increased vagal tone Appreciate further recs from Cardiology Continue to monitor on telemetry Diarrhea Biofire negative Stool culture negative Symptomatic treatment PRN loperamide Hypertension BP currently stable Transaminitis possibly from CHF possible shock liver with reported hypotension at home, statin Rx contributory, hold Continue to monitor Migraine Stable Hx seizure disorder/essential tremors on primidone maintenance as per patient Hyperglycemia rule out DM [id number] normal Anemia hemoglobin stable from result at time of discharge Diet: HH DVT prophylaxis: SCDs Dispo: PT/OT ordered for further recs Admission and Anticipated Discharge Date Admission Date: February 09, 2024 Subjective Pt was seen while still down in the ED. at bedside. Was about to go for another cath. Denied chest pain at that time. Review of Systems Review of Systems: All systems reviewed & are unremarkable except as noted in Subjective Physical Exam Physical Exam: General: Alert, oriented. No acute distress Skin: No noted rashes or bruises Psych: Appropriate mood and affect Neuro: No gross deficits HEENT: NC/AT Chest: Nontender to palpation. CV: RRR Resp: Breath sounds clear bilaterally, no increased effort of breathing. Abdomen:Soft, nontender, nondistended. Extremities: No edema in lower extremities bilaterally. Results & Data Results & Data Vital Signs (Past 12 Hours) Vital Signs Temp Pulse Pulse Pulse Resp BP BP 02/09/24 06:04 97 H 103/69 02/09/24 03:06 97 H 18 102/62 02/09/24 02:25 02/09/24 02:25 36.6 C 94 H 16 113/74 02/09/24 01:42 86 02/09/24 01:00 106 H 16 02/09/24 00:57 103 H 18 144/94 H 02/09/24 00:51 122/84 02/08/24 23:57 96 H 16 127/83 02/08/24 23:30 95 H 16 125/74 02/08/24 23:00 101 H 16 123/75 02/08/24 22:39 91 H 111/78 02/08/24 21:34 02/08/24 21:27 87 02/08/24 21:27 91 H 21 02/08/24 21:27 02/08/24 21:26 02/08/24 21:21 95 H 15 119/86 Pulse Ox O2 Del Method 02/09/24 06:04 97 Room Air 02/09/24 03:06 98 Room Air 02/09/24 02:25 Room Air 02/09/24 02:25 96 Room Air 02/09/24 01:42 02/09/24 01:00 97 Room Air 02/09/24 00:57 97 Room Air 02/09/24 00:51 02/08/24 23:57 95 Room Air 02/08/24 23:30 95 Room Air 02/08/24 23:00 98 Room Air 02/08/24 22:39 02/08/24 21:34 98 Room Air 02/08/24 21:27 02/08/24 21:27 02/08/24 21:27 Room Air 02/08/24 21:26 Room Air 02/08/24 21:21
--- NOTE | 2024-02-09 07:24 | Electrocardiogram Report ---
Test Reason : Blood Pressure : / mmHG Vent. Rate : 099 BPM Atrial Rate : 099 BPM P-R Int : 144 ms QRS Dur : 090 ms QT Int : 394 ms P-R-T Axes : 028 074 076 degrees QTc Int : 505 ms Normal sinus rhythm Prolonged QT Abnormal ECG When compared with ECG of 08-FEB-2024 21:25, (unconfirmed) No significant change was found Confirmed by Rajendra Canales ([id number]) on 02/09/2024 7:23:49 AM Referred By: REFERRED SELF Confirmed By:Timothy Canales
--- NOTE | 2024-02-09 07:27 | Electrocardiogram Report ---
Test Reason : Blood Pressure : / mmHG Vent. Rate : 094 BPM Atrial Rate : 094 BPM P-R Int : 158 ms QRS Dur : 088 ms QT Int : 394 ms P-R-T Axes : 070 074 070 degrees QTc Int : 492 ms Normal sinus rhythm Incomplete right bundle branch block Abnormal ECG When compared with ECG of 28-JAN-2024 06:39, QT has lengthened Confirmed by Rajendra Canales ([id number]) on 02/09/2024 7:27:20 AM Referred By: REFERRED SELF Confirmed By:Timothy Canales
[2024-02-09 07:34] LABS: Estimated Average Glucose 105 mg/dl; Hemoglobin A1C 5.3 % (4.5-5.6)
[2024-02-09 07:49] LABS: ANTI-Xa, UFH(UnfractionatedHep 0.55 IU/ml (0.3-0.7)
--- NOTE | 2024-02-09 08:08 | XRay Report ---
XR chest 1V portable HISTORY: 48 years-old Female Chest pain, nonspecific COMPARISON: 01/24/2024 TECHNIQUE: AP view of the chest FINDINGS: Cardiomediastinal and hilar silhouettes are within normal limits. Emphysema with interstitial coarsen ing. No pneumothorax, pleural effusion or airspace consolidation. The bones appear intact. IMPRESSION: Emphysema without acute process. ACT 112: Negative or not required by law. The above report was generated using voice recognition software. It may contain grammatical, syntax o r spelling errors. Electronically signed by: Rancho Lopez M.D. 02/09/2024 8:06 AM
[2024-02-09] MEDS: CEROVITE ADV FORMULA TAB PO SCH (08:23)
[2024-02-09] MEDS: ACETAMINOPHEN 500 MG TAB PO PRN (08:23)
[2024-02-09] MEDS: PRIMIDONE 50 MG TAB PO SCH (08:23)
[2024-02-09] MEDS: DULoxetine HCL 30 MG CAP PO SCH (08:24)
[2024-02-09] MEDS: ASPIRIN 81 MG ECTAB PO SCH (08:24)
[2024-02-09] MEDS: amLODIPine BESYLATE 5 MG TAB PO SCH (08:24)
[2024-02-09] MEDS: CLOPIDOGREL BISULFATE 75 MG TAB PO SCH (08:24)
--- NOTE | 2024-02-09 09:19 | Cardiology Consultation ---
Date of Consultation February 09, 2024 Assessment & Plan (1) NSTEMI (non-ST elevated myocardial infarction): (2) Elevated troponin: (3) Syncope and collapse: (4) Coronary artery vasospasm: (5) Mitral regurgitation: (6) Second degree AV block, Mobitz type II: Plan 1. NSTEMI: Patient had an episode of significant chest discomfort and had some symptoms throughout the course of yesterday afternoon. She did have a notable elevation in her cardiac biomarkers. Currently without symptoms. On heparin infusion. While this could be related to vasospasm has previously documented, 1 concern would be acute stent thrombosis or acute coronary syndrome involving the right coronary artery. I think it would be imperative to exclude acute coronary syndrome before [place] in this to vasospasm. As such, I recommended repeat coronary angiography. Will continue heparin infusion for now. She will continue her dual anti-platelet therapy. 2. Variant angina: Well documented ST elevations likely associated with vasospasm. Very possible this precipitated her current event. However, in the past her events were relatively brief and did not result in significant myocardial injury. She had a notable injury with this episode. Based on the trajectory of her troponin elevation this likely occurred shortly before admission, not likely related to the mild symptoms she had throughout the course of the day. Will exclude coronary thrombosis. If the coronaries look good will intensify her vaso dilator regimen. 3. Elevated troponin: Marked elevation. Possibly a thrombotic event involving the stent. Possibly vasospasm. Will repeat coronary angiography. 4. Syncope: She commonly has syncope with episodes of chest discomfort. Very likely related to high vagal tone. Her symptoms afterwards are consistent with vagally mediated episode. Documentation of heart block would also be consistent with either vagally mediated syncope or possibly spasm involving the right coronary artery. 5. Heart block: Previously documented 2-1 heart block on telemetry monitoring. As noted above, related either to high vagal tone or possibly spasm involving the right coronary artery. No arrhythmias since admission. No indication for pacing in this scenario. History of Present Illness Reason for Consultation: Chest pain, syncope, elevated troponin Requesting Physician: Ame Attending Physician: Alondra Issa MD History of Present Illness The patient is a 48-year-old woman with a history of variant angina who was initially admitted to the hospital on January 23 for symptoms of chest pain and syncope. The patient apparently had had several episodes of sharp severe chest discomfort followed by syncope. While in the hospital she was noted to have additional episodes of chest pain that involved diffuse ST elevations on telemetry. These were quickly followed by syncope and on 1 occasion was noted to have two-to-one AV block. While her symptoms were fairly brief, this did prompt coronary angiography which revealed some spasm of the left main and a nonobstructive lesion in the right coronary artery. Based on these findings she was started on vasodilators. However, she had an additional episode while in the hospital which prompted repeat catheterization and placement of a right coronary stent. The patient was discharged on dual anti-platelet therapy and amlodipine. Her dose of amlodipine had been reduced in the hospital due to mild hypotension. Yesterday she said that she had element of chest discomfort for an extended period throughout the course of the day. As the evening approach she had more severe chest discomfort followed by syncope. The patient was noted to be poorly responsive by her who summoned an ambulance. According to her she did have a pulse and was breathing. However, her breathing was somewhat agonal. The patient does not recall much until she arrived at the hospital. Since the event the patient reports feeling well. She has not had additional episodes of chest discomfort, dizziness or palpitation while she has been in the hospital. In the 10 days since she left the hospital she was otherwise feeling well. She was engaging in her usual activity which involves an element of exertion. She was not having symptoms of chest pain and did not have any additional syncope. Allergies Allergy/AdvReac Type Severity Reaction Status Date / Time mushroom Allergy Severe THROAT Verified 02/08/24 23:02 SWELLS/SALVADOR doxepin [From [place]] Allergy Intermediate Hives Verified 02/08/24 23:02 Home Medications Medication Instructions Recorded Confirmed Type multivitamin with minerals-folic 1 tab PO DAILY 01/24/24 02/08/24 History acid 200 mcg chewable tablet (Multivitamin Gummies) primidone 50 mg tablet 25 mg PO DAILY 01/24/24 02/08/24 History amlodipine 2.5 mg tablet 2.5 mg PO DAILY #30 tabs 01/28/24 02/08/24 Rx aspirin 81 mg tablet,delayed 81 mg PO DAILY #30 tabs 01/28/24 02/08/24 Rx release atorvastatin 40 mg tablet 40 mg PO QAM #30 tabs 01/28/24 02/08/24 Rx clopidogrel 75 mg tablet 75 mg PO QAM #30 tabs 01/28/24 02/08/24 Rx duloxetine 30 mg capsule,delayed 30 mg PO DAILY 02/08/24 02/08/24 History release galcanezumab-gnlm 120 mg/mL 120 mg subcut DIRECTED 02/08/24 02/08/24 History subcutaneous pen injector (Emgality Pen) Patient History Social History Smoking Status: Former smoker Tobacco Type: Cigarettes Smoking End Date: december 2022; Do You Dip or Chew Tobacco: No; Hx Alcohol Use: No Hx Substance Use: No Preferred Language: Malaysian Communication Ability: Effective Call Or Contact Centre Manager Required: No Beliefs That Will Affect Care: None Current Living Situation: Family Current Living Situation Comment: with son Feels Safe at Home: Yes Safety Concerns: Feels Safe At This Time Assistive Devices: None Review of Systems Review of Systems: Per HPI Physical Exam Physical Exam: She is alert and oriented x3. Mood affect appear normal. She answered all questions appropriately. HEENT: Sclerae are anicteric. Pupils are equal and reactive to light and accommodation. Extraocular movements were intact. Neuro: Cranial nerves intact Lungs: Lungs are clear to auscultation bilaterally. There are no rales wheezes or rhonchi. She has normal respiratory effort without use of accessory muscles. There is normal pulmonary excursion. Cardiac: The rhythm was regular. S1 and S2 were normal. There are no murmurs on examination. The PMI was not markedly displaced on palpation. Abdomen: The abdomen was soft and nontender. Extremities: Patient has bilateral radial pulses that are equal in intensity. There is no evidence cyanosis or clubbing. There was no evidence of significant peripheral edema bilaterally. Skin: There are no rashes noted on examination today. Results & Data Vital Signs (Past 12 Hours) Vital Signs Temp Pulse Pulse Pulse Resp BP BP 02/09/24 08:32 103 H 13 02/09/24 08:12 100 H 22 117/77 02/09/24 07:36 90 14 02/09/24 07:30 94 H 02/09/24 07:06 95 H 14 02/09/24 06:04 97 H 103/69 02/09/24 03:06 97 H 18 102/62 02/09/24 02:25 02/09/24 02:25 36.6 C 94 H 16 113/74 02/09/24 01:42 86 02/09/24 01:00 106 H 16 02/09/24 00:57 103 H 18 144/94 H 02/09/24 00:51 122/84 02/08/24 23:57 96 H 16 127/83 02/08/24 23:30 95 H 16 125/74 02/08/24 23:00 101 H 16 123/75 02/08/24 22:39 91 H 111/78 02/08/24 21:34 02/08/24 21:27 87 02/08/24 21:27 91 H 21 02/08/24 21:27 02/08/24 21:26 02/08/24 21:21 95 H 15 119/86 Pulse Ox O2 Del Method 02/09/24 08:32 99 Room Air 02/09/24 08:12 97 02/09/24 07:36 96 Room Air 02/09/24 07:30 02/09/24 07:06 94 Room Air 02/09/24 06:04 97 Room Air 02/09/24 03:06 98 Room Air 02/09/24 02:25 Room Air 02/09/24 02:25 96 Room Air 02/09/24 01:42 02/09/24 01:00 97 Room Air 02/09/24 00:57 97 Room Air 02/09/24 00:51 02/08/24 23:57 95 Room Air 02/08/24 23:30 95 Room Air 02/08/24 23:00 98 Room Air 02/08/24 22:39 02/08/24 21:34 98 Room Air 02/08/24 21:27 02/08/24 21:27 02/08/24 21:27 Room Air 02/08/24 21:26 Room Air 02/08/24 21:21 Laboratory Results Abnormal Lab Results 02/08/24 02/08/24 02/08/24 21:30 22:37 23:14 WBC 6.09 RBC 3.47 L Hgb 10.4 L Hct 32.1 L MCV 92.5 MCH 30.0 MCHC 32.4 RDW Std Deviation 43.8 RDW Coeff of Deric 13.0 Plt Count 348 MPV 9.7 Immature Gran % (Auto) 1.3 Neut % (Auto) 46.7 Lymph % (Auto) 41.1 [place] % (Auto) 8.0 Eos % (Auto) 1.6 Baso % (Auto) 1.3 Neut # (Auto) 2.84 Lymph # (Auto) 2.50 [place] # (Auto) 0.49 Eos # (Auto) 0.10 Baso # (Auto) 0.08 Immature Gran # (Auto) 0.08 APTT 24 PTT Ratio 0.9 Heparin Anti-Xa, Unfract Sodium 138 Potassium 3.9 Chloride 108 H Carbon Dioxide 18 L Anion Gap 12 H BUN 15 Creatinine 0.97 Est Cr Clr Drug Dosing 50.4 Est GFR ( Amer) 79.5 Est GFR (Non-Af Amer) 68.6 BUN/Creatinine Ratio 15.5 Glucose 276 H Estimat Average Glucose Hemoglobin A1c Calcium 7.7 L Magnesium 1.8 Total Bilirubin 0.7 AST 167 H ALT 189 H Alkaline Phosphatase 74 Total Creatine Kinase 60 Troponin I High Sens 29.3 H 659.6 H* D B-Natriuretic Peptide Total Protein 5.7 L Albumin 3.6 Globulin 2.1 L Albumin/Globulin Ratio 1.7 Lipase 57 Urine Color Yellow Urine Appearance Cloudy A Urine pH 6.5 Ur Specific [place] 1.012 Urine Protein Trace H Urine Glucose (UA) 2+ H Urine Ketones Negative Urine Blood Negative Urine Nitrite Negative Urine Bilirubin Negative Urine Urobilinogen Negative Ur Leukocyte Esterase Trace H Urine WBC (Auto) 11-20 H Urine RBC (Auto) 0-2 U Hyaline Cast (Auto) 0-2 U Epithel Cells (Auto) 11-20 H Urine Bacteria (Auto) 1+ H Stl C. cayetanensis PCR Stool Rotavirus A PCR Stl Adenov F 4041 PCR Stool Astrovirus (PCR) Stool Campylobacter PCR Stl C. diff Tox B Gene Stool Cryptosporidium PCR Stl E.coli Shiga Tox PCR Stl Enterotoxigenic E PCR Stool EPEC (PCR) Stool EAEC (PCR) Stl E. histolytica PCR Stool Giardia Lamblia PCR Stool Salmonella PCR Stool Sapovirus (PCR) Stl P. shigelloides PCR Stl Shigella/EIEC PCR St Y.enterocolitica PCR Stool Vibrio (PCR) Stl Vibrio cholerae PCR Stl Norovirus GI/GII PCR Urine Opiates Screen Neg Ur Methadone, Qual Neg Urine Fentanyl Screen Neg Urine Barbiturates Neg Ur Phencyclidine (PCP) Neg U Amphetamin/Meth Scrn Neg MDMA (Ecstasy) Screen Neg U Benzodiazepines Scrn Neg Ur Cocaine Metabolite Neg U Marijuana (THC) Screen Neg Adenovirus (PCR) B. pertussis DNA (PCR) B.parapertussis DNA PCR C. pneumoniae DNA (PCR) Coronavirus OC43 (PCR) Coronavirus HKU1 (PCR) Coronavirus 229E (PCR) SARS-CoV-2 (PCR) Coronavirus NL63 (PCR) Human Metapneumovir PCR Influenza Type A (PCR) Influenza Type B (PCR) M. pneumoniae (PCR) Parainfluenza 1 (PCR) Parainfluenza 2 (PCR) Parainfluenza 3 (PCR) Parainfluenza 4 (PCR) RSV (PCR) Entero/Rhino (PCR) 02/08/24 02/09/24 02/09/24 23:31 03:45 06:54 WBC 11.98 H RBC 3.57 L Hgb 10.7 L Hct 31.7 L MCV 88.8 MCH 30.0 MCHC 33.8 RDW Std Deviation 42.1 RDW Coeff of Deric 12.9 Plt Count 349 MPV 9.7 Immature Gran % (Auto) 0.3 Neut % (Auto) 86.2 Lymph % (Auto) 8.4 [place] % (Auto) 4.7 Eos % (Auto) 0.0 Baso % (Auto) 0.4 Neut # (Auto) 10.32 H Lymph # (Auto) 1.01 L [place] # (Auto) 0.56 Eos # (Auto) 0.00 Baso # (Auto) 0.05 Immature Gran # (Auto) 0.04 APTT PTT Ratio Heparin Anti-Xa, Unfract 0.55 Sodium 140 Potassium 3.7 Chloride 109 H Carbon Dioxide 23 Anion Gap 8 BUN 15 Creatinine 0.69 Est Cr Clr Drug Dosing 70.8 Est GFR ( Amer) 118.5 Est GFR (Non-Af Amer) 102.2 BUN/Creatinine Ratio 21.7 H Glucose 112 H Estimat Average Glucose 105 Hemoglobin A1c 5.3 Calcium 9.0 Magnesium Total Bilirubin 0.8 AST 123 H ALT 192 H Alkaline Phosphatase 68 Total Creatine Kinase Troponin I High Sens 1755.7 H* D B-Natriuretic Peptide 140 H Total Protein 6.9 D Albumin 4.5 Globulin 2.4 L Albumin/Globulin Ratio 1.9 Lipase Urine Color Urine Appearance Urine pH Ur Specific [place] Urine Protein Urine Glucose (UA) Urine Ketones Urine Blood Urine Nitrite Urine Bilirubin Urine Urobilinogen Ur Leukocyte Esterase Urine WBC (Auto) Urine RBC (Auto) U Hyaline Cast (Auto) U Epithel Cells (Auto) Urine Bacteria (Auto) Stl C. cayetanensis PCR Not Detected Stool Rotavirus A PCR Not Detected Stl Adenov F 40/41 PCR Not Detected Stool Astrovirus (PCR) Not Detected Stool Campylobacter PCR Not Detected Stl C. diff Tox B Gene Negative Cdiff Gene Stool Cryptosporidium PCR Not Detected Stl E.coli Shiga Tox PCR Not Detected Stl Enterotoxigenic E PCR Not Detected Stool EPEC (PCR) Not Detected Stool EAEC (PCR) Not Detected Stl E. histolytica PCR Not Detected Stool Giardia Lamblia PCR Not Detected Stool Salmonella PCR Not Detected Stool Sapovirus (PCR) Not Detected Stl P. shigelloides PCR Not Detected Stl Shigella/EIEC PCR Not Detected St Y.enterocolitica PCR Not Detected Stool Vibrio (PCR) Not Detected Stl Vibrio cholerae PCR Not Detected Stl Norovirus GI/GII PCR Not Detected Urine Opiates Screen Ur Methadone, Qual Urine Fentanyl Screen Urine Barbiturates Ur Phencyclidine (PCP) U Amphetamin/Meth Scrn MDMA (Ecstasy) Screen U Benzodiazepines Scrn Ur Cocaine Metabolite U Marijuana (THC) Screen Adenovirus (PCR) B. pertussis DNA (PCR) B.parapertussis DNA PCR C. pneumoniae DNA (PCR) Coronavirus OC43 (PCR) Coronavirus HKU1 (PCR) Coronavirus 229E (PCR) SARS-CoV-2 (PCR) Coronavirus NL63 (PCR) Human Metapneumovir PCR Influenza Type A (PCR) Influenza Type B (PCR) M. pneumoniae (PCR) Parainfluenza 1 (PCR) Parainfluenza 2 (PCR) Parainfluenza 3 (PCR) Parainfluenza 4 (PCR) RSV (PCR) Entero/Rhino (PCR) 02/09/24 Unknown WBC RBC Hgb Hct MCV MCH MCHC RDW Std Deviation RDW Coeff of Deric Plt Count MPV Immature Gran % (Auto) Neut % (Auto) Lymph % (Auto) [place] % (Auto) Eos % (Auto) Baso % (Auto) Neut # (Auto) Lymph # (Auto) [place] # (Auto) Eos # (Auto) Baso # (Auto) Immature Gran # (Auto) APTT PTT Ratio Heparin Anti-Xa, Unfract Sodium Potassium Chloride Carbon Dioxide Anion Gap BUN Creatinine Est Cr Clr Drug Dosing Est GFR ( Amer) Est GFR (Non-Af Amer) BUN/Creatinine Ratio Glucose Estimat Average Glucose Hemoglobin A1c Calcium Magnesium Total Bilirubin AST ALT Alkaline Phosphatase Total Creatine Kinase Troponin I High Sens B-Natriuretic Peptide Total Protein Albumin Globulin Albumin/Globulin Ratio Lipase Urine Color Urine Appearance Urine pH Ur Specific [place] Urine Protein Urine Glucose (UA) Urine Ketones Urine Blood Urine Nitrite Urine Bilirubin Urine Urobilinogen Ur Leukocyte Esterase Urine WBC (Auto) Urine RBC (Auto) U Hyaline Cast (Auto) U Epithel Cells (Auto) Urine Bacteria (Auto) Stl C. cayetanensis PCR Stool Rotavirus A PCR Stl Adenov F 40/41 PCR Stool Astrovirus (PCR) Stool Campylobacter PCR Stl C. diff Tox B Gene Stool Cryptosporidium PCR Stl E.coli Shiga Tox PCR Stl Enterotoxigenic E PCR Stool EPEC (PCR) Stool EAEC (PCR) Stl E. histolytica PCR Stool Giardia Lamblia PCR Stool Salmonella PCR Stool Sapovirus (PCR) Stl P. shigelloides PCR Stl Shigella/EIEC PCR St Y.enterocolitica PCR Stool Vibrio (PCR) Stl Vibrio cholerae PCR Stl Norovirus GI/GII PCR Urine Opiates Screen Ur Methadone, Qual Urine Fentanyl Screen Urine Barbiturates Ur Phencyclidine (PCP) U Amphetamin/Meth Scrn MDMA (Ecstasy) Screen U Benzodiazepines Scrn Ur Cocaine Metabolite U Marijuana (THC) Screen Adenovirus (PCR) Not Detected B. pertussis DNA (PCR) Not Detected B.parapertussis DNA PCR Not Detected C. pneumoniae DNA (PCR) Not Detected Coronavirus OC43 (PCR) Not Detected Coronavirus HKU1 (PCR) Not Detected Coronavirus 229E (PCR) Not Detected SARS-CoV-2 (PCR) Not Detected Coronavirus NL63 (PCR) Not Detected Human Metapneumovir PCR Not Detected Influenza Type A (PCR) Not Detected Influenza Type B (PCR) Not Detected M. pneumoniae (PCR) Not Detected Parainfluenza 1 (PCR) Not Detected Parainfluenza 2 (PCR) Not Detected Parainfluenza 3 (PCR) Not Detected Parainfluenza 4 (PCR) Not Detected RSV (PCR) Not Detected Entero/Rhino (PCR) Not Detected Diagnostic Findings Chest x-ray obtained at the time admission did not reveal any acute cardiopulmonary process. Head and neck CT did not demonstrate any acute abnormality Lower extremity arterial duplex did not reveal any pseudoaneurysm at the site of her prior femoral cannulation. 01/25/2024: Normal LV systolic function with ejection fraction of 55-60%. Moderately thickened mitral valve leaflets with moderate to severe mitral regurgitation and eccentric posterior jet. ECG Additional Comments: Normal sinus rhythm without significant ST or T-wave changes. Incomplete right bundle-branch block PG Care Time/CCT Total # of Minutes Spent Total Time Spent with Patient: Total time spent is greater than 50% in coordination of care (as documented) at patient's floor/unit and/or counseling patient: Coding Level of Care Code 89058 IN/OBS CONSULT LVL 4,60M Diagnoses NSTEMI (non-ST elevated myocardial infarction) I21.4 Elevated troponin R79.89 Syncope and collapse R55 Coronary artery vasospasm I20.1 Nonrheumatic mitral valve regurgitation I34.0 Cardiac valve disease etiology: nonrheumatic Second degree AV block, Mobitz type II I44.1 (5) Mitral regurgitation Cardiac valve disease etiology: nonrheumatic Qualified Code(s): I34.0 - Nonrheumatic mitral (valve) insufficiency
[2024-02-09] MEDS: LIDOCAINE 1% LOCAL 20 ML VIAL ONE (10:23)
[2024-02-09] MEDS: niCARdipine HCL INJ 2.5 MG/ML 10 ML AMP ONE (10:23)
[2024-02-09] MEDS: MIDAZOLAM HCL 1 MG/ML 2ML VIAL ONE ×2 (10:29→10:30)
[2024-02-09] MEDS: NITROGLYCERIN/D5W 100MCG/ML 20ML SYR ONE (10:29)
[2024-02-09] MEDS: HEPARIN (PORCINE) 1000 UNIT/ML 10 ML (CATH LAB USE ONLY) ONE (10:30)
[2024-02-09] MEDS: fentaNYL citrate PF 100 MCG/2 ML VIAL ONE (10:30)
[2024-02-09] MEDS: OPTIRAY 350 ONE (10:32)
[2024-02-09] MEDS: IODIXANOL (VISIPAQUE) 320 MG/ML 100ML IV ONE (10:32)
--- NOTE | 2024-02-09 11:07 | Cardiac Catheterization ---
[facility] Data: Housing Liaison Cardiac Status Clinical evaluation leading to the procedure CAD Presenation: Non STEMI Anginal Classification: CCS IV Heart Failure: No Cardiogenic Shock within 24 Hours: No Cardiac Arrest within 24 Hours: No Imaging Studies Past 6 Months: Yes Stress Studies Past 6 Months: No Standard Exercise Test: No Stress Echocardiogram: No Stress Testing w/SPECT MPI: No Cardiac CTA: No Coronary Anatomy Dominant: Right Left Main (% Stenosis): Ostial (40-50%) LAD (% Stenosis): Normal D1 (% Stenosis): Normal D2 (% Stenosis): Normal D3 (% Stenosis): Normal Circumflex (% Stenosis): Normal OM1 (% Stenosis): Normal OM2 (% Stenosis): Normal RCA (% Stenosis): Normal (Patent stent) Left Ventricular Angiography EF (%): 65 Wall Motion: Anterior (Normal), Apical (Normal) and Inferior (Normal) Mitral Regurgitation: 1+ Diagnostic Physicians Name: Dany Valadez MD Status: Urgent Closure Device Percutaneous Entry Location: Femoral Closure Device: StarClose Recommendations: None (Aggressive medical management for fixed coronary artery disease involving the ostium of the left main with superimposed spasm.) Cardiac Cath Procedure Full Procedure Date February 09, 2024 Pre-Procedure Diagnosis Pre-Procedure Diagnosis: Non STEMI, Acute Coronary Syndrome and Angina AUC Score AUC Score: 100 Post-Procedure Diagnosis Post-Procedure Diagnosis: Moderate CAD (Widely patent recently stented mid RCA, 40 to 50% stenosis at the origin of a very short left main with superimposed spasm.) Procedure(s) Performed Procedure(s) Performed: Coronary Angiography, Left Heart Cath and LV Angiography Pharmacoepidemiologist Dany Valadez MD Cover Stripper(s) [facility] Estimated Blood Loss Estimated Blood Loss: None (20cc) Medication(s) Medication(s): Fentanyl Medication(s): Versed Summary of Findings The patient was brought to the cardiac catheterization laboratory. The right groin was prepped and draped in the usual manner. The skin and subcutaneous tissue were anesthetized with 1% lidocaine. Using a percutaneous technique a 5 Vincentian sheath was placed retrograde in the right common femoral vein and a 6 Vincentian sheath was placed retrograde in the right common femoral artery. Selective angiography of the right coronary artery documented a right dominant coronary artery with a widely patent recently placed stent in its midportion without evidence of in-stent restenosis and no other significant disease. The left main is abnormal there is a 40 to 50% ostial narrowing, this was associated with an immediate 30 mm 40 mm gradient which progressively worsened a s angiography was performed. The left main is extremely short. The LAD and circumflex vessels are normal. The left main ostial stenosis was very producible multiple times. Ventriculography in the GARCIA and KEVIN projection documented hyperdynamic LV systolic function without segmental wall motion abnormality and no significant mitral insufficiency. Hemodynamics Rest Ao:: There was no gradient across the aortic valve. Final Ao: 130/76 LV: 117/17 Recommendations Recommendations: None (Aggressive medical management for fixed coronary artery disease involving the ostium of the left main with superimposed spasm.) Radiation Exposure (mGy) 313 mGy 25.78 DAP Contrast (mls) 110 Disposition ICU I attest to the content of the Intraoperative Record and any orders documented therein. Any exceptions are noted below. PG Care Time/CCT Total # of Minutes Spent Total Time Spent with Patient: Total time spent is greater than 50% in coordination of care (as documented) at patient's floor/unit and/or counseling patient:
[2024-02-09 14:59] LABS: ANTI-Xa, UFH(UnfractionatedHep < 0.10 IU/ml (0.3-0.7)
--- NOTE | 2024-02-09 16:34 | XCELERA ---
[id number] \\[id number]
[2024-02-10 06:35] LABS: Basophils # (auto) 0.08 K/uL (0.00-0.20); Basophils % (auto) 1.1 %; Eosinophils # (auto) 0.17 K/uL (0.00-0.50); Eosinophils % (auto) 2.3 %; Hematocrit (blood only) 31.8 % (37.0-47.0); Hemoglobin 10.3 g/dl (12.0-16.0); Immature Granulocytes # (auto) 0.02 K/uL (0.01-0.20); Immature Granulocytes % (auto) 0.3 %; Lymphocytes # (auto) 2.15 K/uL (1.20-3.40); Lymphocytes % (auto) 28.8 %; Mean Corpuscular Hemoglobin 29.4 pg (25.0-34.0); Mean Corpuscular Hgb Conc 32.4 g/dL (32.0-36.0); Mean Corpuscular Volume 90.9 fL (80.0-100.0); Mean Platelet Volume 9.9 fL (9.4-12.4); Monocytes # (auto) 0.65 K/uL (0.11-0.59); Monocytes % (auto) 8.7 %; Neutrophils % (auto) 58.8 %; Platelet Count 332 K/uL (130-400); RDW Coefficient of Variation 13.2 % (11.5-14.5); RDW Standard Deviation 43.8 fL (36.4-46.3); White Blood Count 7.47 K/ul (4.8-10.8)
[2024-02-10 07:10] LABS: Albumin Globulin Ratio 1.7 (0.9-2); Albumin Level 3.7 gm/dl (3.4-5.0); BUN Creatinine Ratio 13.7 (10-20); Bilirubin,Total 0.8 mg/dl (0.2-1.0); Calcium 8.7 mg/dl (8.6-10.3); Est GFR (African American) 112.1 ml/min; Est GFR (Non-African American) 96.7 ml/min; Globulin 2.2 gm/dl (2.5-4.0); Magnesium 1.8 mg/dl (1.7-2.4); Phosphorus 3.1 mg/dl (2.5-4.9); Potassium 3.7 mmol/L (3.5-5.1); Total Protein 5.9 gm/dl (6.0-8.3)
[2024-02-10] MEDS: ISOSORBIDE MONO EXTENDED REL 30 MG TABCR PO SCH (08:29)
--- NOTE | 2024-02-10 13:06 | Discharge Summary ---
Discharge Summary Date of Service February 10, 2024 Principal Dx & Hospital Course #1 = Principal Diagnosis (1) NSTEMI (non-ST elevated myocardial infarction): Plan Pt is a 48yoF with PMHx significant for CAD status post stent, history of coronary vasospasm, PVD (left subclavian artery stenosis on recent imaging), valvular heart disease (moderate MR/TR), second-degree AV block Mobitz type II, CVA, hypertension, migraine, seizure disorder, essential tremors, pulmonary nodules presenting with syncopal episode and chest pain once more. NSTEMI History CAD s/p stent placement History coronary vasospasm Hx of Mobitz type II heart block Patient presenting with left-sided chest pain relieved by nitroglycerin at the ER Recent confinement 2 weeks ago for STEMI presenting as chest pain and syncope. Moderate stenosis of the proximal left subclavian artery due to noncalcified plaque on CT imaging. TTE showed EF 55 to 60%, grade 1 diastolic dysfunction. Moderate to severe mitral insufficiency with eccentric posterior directed jet. Trace TR. 2 diagnostic cardiac catheterizations during last admission. STEMI initially attributed to coronary vasospasm later complicated by second- degree AV block, Mobitz type II and post cath small AV fistula. 70% mid RCA stenosis by IVUS on second diagnostic cardiac catheterization status post PCI/stent placement. Patient was discharged on aspirin, Plavix, statin, and amlodipine Rx. cardiology recommended avoiding AV morelia blockers given second-degree AV block, Mobitz type II history. Repeat TTE recommended after 1 month follow-up study for moderate-severe MR. This admission, EKG with NSR, incomplete RBBB, prolonged QT Troponin elevation of 29.3 to 659.6 to 1755.7 Repeat TTE with normal left ventricular systolic function, normal LV motion and mild to moderate mitral regurgitation [facility] consulted per pt preference, appreciate recs -s/p cardiac cath once more on 02/08, RCA stent patent, left main ostial culprit -continue Plavix and aspirin -continue amlodipine -syncope likely due to increased vagal tone Per Dr Giovanny Brasher ([facility] Cardiology) on the day of discharge: can be discharged with current medication regimen if stable. Resume home atorvastatin and check LFTs later this week after discharge for continued monitoring. Followup after discharge with Dr Romain Canales. pt with noted headache after Imdur. Per Dr Brasher, very common and will likely continue to occur with future doses but will eventually go away. Please ensure close cardiology followup after discharge. Transaminitis possibly from CHF possible shock liver with reported hypotension at home statin Rx contributory, was held LFTs improved though not back to baseline at the time of discharge. As noted above, per Cardiology on day of discharge, resume home atorvastatin and check LFTs later this week after discharge for continued monitoring Diarrhea Biofire negative Stool culture negative Symptomatic treatment PRN loperamide Hypertension BP currently stable Transaminitis possibly from CHF possible shock liver with reported hypotension at home, statin Rx contributory, hold Continue to monitor Migraine Stable Hx seizure disorder/essential tremors on primidone maintenance as per patient Hyperglycemia ruled out DM [id number] normal Anemia hemoglobin stable from result at time of discharge PCP followup Notes For Next Care Provider Please ensure followup with Cardiology Dr Romain Canales Please continue to monitor LFTs, per Cardiology check/repeat in the next week after discharge Please ensure resolution of diarrhea Medication Changes From Visit Imdur 30mg qAM Loperamide prn for loose stool Admission HPI Per Admitting Provider History obtained from patient, family, and records. Medical history significant for CAD status post stent, history of coronary vasospasm, PVD (left subclavian artery stenosis on recent imaging), valvular heart disease (moderate MR/TR), second-degree AV block Mobitz type II, CVA, hypertension, migraine, seizure disorder, essential tremors, pulmonary nodules, past tobacco abuse. Recent confinement 2 weeks ago for STEMI presenting as chest pain and syncope. Moderate stenosis of the proximal left subclavian artery due to noncalcified plaque on CT imaging. TTE showed EF 55 to 60%, grade 1 diastolic dysfunction. Moderate to severe mitral insufficiency with eccentric posterior directed jet. Trace TR. 2 diagnostic cardiac catheterizations during last admission. STEMI initially attributed to coronary vasospasm later complicated by second- degree AV block, Mobitz type II and post cath small AV fistula. 70% mid RCA stenosis by IVUS on second diagnostic cardiac catheterization status post PCI/stent placement. Patient discharged on aspirin, Plavix, statin, and amlodipine Rx. Avoid AV morelia blockers as per cardiology note given second-degree AV block, Mobitz type II history. Repeat TTE recommended after 1 month follow-up study for moderate-severe MR. Hemoglobin 10-11 at time of discharge. Patient recalls having left-sided chest tightness associated with shortness of breath somewhat different from episode last month. Compliant with home medications. Unwitnessed syncopal event. Partner heard patient fall down. Patient found to be unresponsive but with pulse and breathing. Watery diarrhea without abdominal complaints. Patient later woke up confused, looking short of breath, with bilateral arm numbness/shaking as per partner. No tongue biting or urinary incontinence. Different from usual seizure attack patient describes as blank stares. SBP noted to be low upon EMS arrival as per partner. Patient currently more awake at the ER. Left-sided chest pain relieved by nitroglycerin. 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 No acute distress Skin: No noted rashes or bruises Psych: Appropriate mood and affect Neuro: No gross deficits HEENT: NC/AT Chest: Nontender to palpation. CV: RRR Resp: Breath sounds clear bilaterally, no increased effort of breathing. Abdomen:Soft, nontender, nondistended. Extremities: No edema in lower extremities bilaterally. Updated Medication List Medication Instructions Recorded Confirmed Type multivitamin with minerals-folic 1 tab PO DAILY 01/24/24 02/08/24 History acid 200 mcg chewable tablet (Multivitamin Gummies) primidone 50 mg tablet 25 mg PO DAILY 01/24/24 02/08/24 History amlodipine 2.5 mg tablet 2.5 mg PO DAILY #30 tabs 01/28/24 02/08/24 Rx aspirin 81 mg tablet,delayed 81 mg PO DAILY #30 tabs 01/28/24 02/08/24 Rx release atorvastatin 40 mg tablet 40 mg PO QAM #30 tabs 01/28/24 02/08/24 Rx clopidogrel 75 mg tablet 75 mg PO QAM #30 tabs 01/28/24 02/08/24 Rx duloxetine 30 mg capsule,delayed 30 mg PO DAILY 02/08/24 02/08/24 History release galcanezumab-gnlm 120 mg/mL 120 mg subcut DIRECTED 02/08/24 02/08/24 History subcutaneous pen injector (Emgality Pen) isosorbide mononitrate 30 mg 30 mg PO QAM #30 tabs 02/10/24 Rx tablet,extended release 24 hr loperamide 2 mg capsule 2 mg PO TID PRN loose stool #30 02/10/24 Rx caps Hospital Stay Data Consultations 02/08/24 23:43 ED Decision to Admit Stat 02/09/24 02:47 Consult Cardiology Routine Procedures Performed Operation Date: 02/09/24 09:58 Actual Procedures s Cineradiography w/Routine Exam - Dany Valadez MD p Cath, Left with Cors and Vent - Dany Valadez MD s Placement Art Occlusive Device - Dany Valadez MD Diagnostic Imagining Performed 02/08/24 21:32 CT cervical spine wo con Stat CT head/brain wo con Stat 02/08/24 21:38 US arterial duplex LE RT Stat 02/09/24 09:47 CL Cath Imgs for PACS use only Routine Chest X-Ray 02/08/24 21:21 XR chest 1V portable HISTORY: 48 years-old Female Chest pain, nonspecific COMPARISON: 01/24/2024 TECHNIQUE: AP view of the chest FINDINGS: Cardiomediastinal and hilar silhouettes are within normal limits. Emphysema with interstitial coarsening. No pneumothorax, pleural effusion or airspace consolidation. The bones appear intact. IMPRESSION: Emphysema without acute process. ACT 112: Negative or not required by law. The above report was generated using voice recognition software. It may contain grammatical, syntax or spelling errors. Electronically signed by: Rancho Lopez M.D. 02/09/2024 8:[address] 02/08/24 21:32 Exam(s): CT C SPINE EXAM: CT Cervical Spine Without Intravenous Contrast CLINICAL HISTORY: Reason for exam: found down. TECHNIQUE: Axial computed tomography images of the cervical spine without intravenous contrast. CTDI is 38 mGy and DLP is 546 mGy-cm. Automated exposure control was utilized for the study. A dose lowering technique was utilized adhering to the principles of ALARA. COMPARISON: No relevant prior studies available. FINDINGS: Vertebrae: Unremarkable. No acute fracture. No traumatic subluxation. Discs/spinal canal/neural foramina: Disc heights maintained. Right-sided facet degeneration, greatest at C2-C3. No spinal canal stenosis. Soft tissues: Unremarkable. Lungs: Septal thickening at the lung apices. IMPRESSION: 1. No acute osseous findings. 2. Septal thickening at the lung apices suggesting pulmonary edema. Electronically signed by: Barbara Pineda M.D. 02/08/24 22:[address] 02/08/24 21:32 Exam(s): CT HEAD Without Contrast EXAM: CT Head Without Intravenous Contrast CLINICAL HISTORY: Reason for exam: found down. TECHNIQUE: Axial computed tomography images of the head/brain without intravenous contrast. CTDI is 38 mGy and DLP is 546 mGy-cm. Automated exposure control was utilized for the study. A dose lowering technique was utilized adhering to the principles of ALARA. COMPARISON: 01/24/24 FINDINGS: Brain: Unremarkable. No hemorrhage. No significant white matter disease. No edema. Cooper-white matter differentiation maintained. Ventricles: Unremarkable. No hydrocephalus. Bones/joints: Unremarkable. No acute fracture. Soft tissues: Unremarkable. Sinuses: Unremarkable as visualized. Mastoid air cells: Unremarkable as visualized. No mastoid effusion. IMPRESSION: No acute intracranial process. Electronically signed by: Barbara Pienda M.D. 02/08/24 22:48 PM Duplex Scan Lower Extremity Artery 02/08/24 21:38 Exam(s): US ARTERIAL RIGHT LOWER EXTREMITY EXAM: US Duplex Right Lower Extremity Arteries CLINICAL HISTORY: Reason for exam: ro pseudoaneurysm. TECHNIQUE: Real-time duplex ultrasound scan of the right lower extremity arteries integrating B-mode two-dimensional vascular structure, Doppler spectral analysis and color flow Doppler imaging. COMPARISON: 01/27/24 FINDINGS: No pseudoaneurysm or AV fistula is identified. Image segments of the common, deep, and superficial femoral arteries appear normal. Image segments of the common, deep, and superficial femoral veins appear normal. Right iliac artery appears normal. No hematoma or fluid collection is identified. IMPRESSION: No visualized pseudoaneurysm. Electronically signed by: Barbara Pineda M.D. 02/08/24 23:39 PM Discharge Instructions Given to Patient (Per Discharging Provider) Ms. Alberto, Per java project manager Dr Giovanny Brasher, you can be discharged since you are stable. He recommends that you follow up with java project manager Dr Rajednra Canales after discharge. They will contact you to schedule that appointment. You are being discharged with the medication Imdur 30mg. Per Dr Brasher, you will likely have the headache for a few days but please continue to take this medication. Please also continue with your amlodipine, plavix and aspirin medications at home. Your liver enzymes were elevated and your home statin or cholesterol medication was held. However your levels have improved but are still not back to baseline. Dr Brasher recommends that you continue to take this medication (Atorvastatin) at home and they will continue to monitor your liver enzymes at followup or check it later this week. Please also keep close follow up with your primary care provider after discharge. Please do not hesitate to come back to the emergency room if your symptoms worsen or return. It was a pleasure taking care of you while you were here. Total Time Total Time Spent Total Time Spent (In Minutes): 75
--- NOTE | 2024-02-10 14:50 | Electrocardiogram Report ---
Test Reason : Blood Pressure : / mmHG Vent. Rate : 071 BPM Atrial Rate : 071 BPM P-R Int : 132 ms QRS Dur : 094 ms QT Int : 448 ms P-R-T Axes : 060 063 085 degrees QTc Int : 486 ms Normal sinus rhythm Incomplete right bundle branch block Septal infarct , age undetermined Abnormal ECG When compared with ECG of 09-FEB-2024 00:08, No significant change was found Confirmed by Gabriel Brasher ([id number]) on 02/10/2024 2:49:42 PM Referred By: REFERRED SELF Confirmed By:Gabriel Brasher
== END 2024-02-10 13:58 | disposition home or self-care (01) | DRG 280 ==
LOC: ED 21:18 → EDINP 02-09 00:44 → 2E 02-09 11:16